=== PATIENT | female | born 1945 | race African-American/Black ===

== ENCOUNTER 2019-12-15 11:39 | Inpatient (IN) | payer MEDICARE, MEDICAID, SELFPAY ==
[2019-12-15] VITALS (34 sets, daily range): BP systolic 128–150; BP diastolic 51–66; PULSE 75–85; RESP 15–29; TEMP 37.2–37.7; O2SAT 79–100; BMI 27.1
--- NOTE | ~2019-12-15 | XR_ITS ---
EXAMINATION: XR chest 1V portable INDICATION: Bilateral pneumonia TECHNIQUE: Portable AP chest at 0512 hours COMPARISON: 12/19/2019 FINDINGS: The endotracheal tube ends approximately 3.8 cm above the cheryl. The nasogastric tube is f ollowed as far as the stomach. Its tip is beyond the inferior margin of the radiograph. Patchy diffus e airspace opacities persist, right greater than left, without significant change. There is no pleura l effusion or pneumothorax. The cardiomediastinal silhouette is normal. IMPRESSION: 1. Stable diffuse lung disease, consistent with pneumonia and/or pulmonary edema and/or acute respira tory distress syndrome (ARDS). Reviewed, dictated and finalized at location A. IMPRESSION: 1. Stable diffuse lung disease, consistent with pneumonia and/or pulmonary jase a and/or acute respiratory distress syndrome (ARDS).
--- NOTE | ~2019-12-15 | XR_ITS ---
EXAMINATION: XR chest 1V portable DATE: 12/22/2019 06:08 INDICATION: Pneumonia. Bilateral pulmonary infiltrates. TECHNIQUE: frontal view of the chest was obtained. COMPARISON: Chest radiograph dated 12/21/2019 FINDINGS: Endotracheal tube tip 4.5 cm above the cheryl. Nasogastric tube in the stomach. Diffuse hazy airspace and indistinct interstitial opacities throughout both lungs. Small bilateral pl eural effusions. Calcified nodules in the right lower lung zone consistent with old granulomatous dis ease. No pneumothorax. The cardiomediastinal silhouette is normal. IMPRESSION: 1. No significant interval change in diffuse bilateral lung disease consistent with pneumonia, pulmon renny edema, ARDS or some combination thereof. 2. Small bilateral pleural effusions. Reviewed, dictated and finalized at location A. IMPRESSION: 1. No significant interval change in diffuse bilateral lung disease consistent with pneumonia, pulmonary edema, ARDS or some combination thereof. 2. Small bilateral pleural effusions.
--- NOTE | ~2019-12-15 | XR_ITS ---
EXAMINATION: XR chest 1V portable DATE: 12/21/2019 06:01 INDICATION: Pneumonia. Bilateral pulmonary infiltrates. TECHNIQUE: frontal view of the chest was obtained. COMPARISON: Chest radiograph dated 12/20/2019 FINDINGS: Endotracheal tube tip 4.4 cm above the cheryl. Nasogastric tube tip in proximal side port in the body of the stomach. Vascular stent in the right subclavian region. Minimal change in diffuse patchy airspace opacities throughout both lungs. No pneumothorax or definit donita pleural effusion. Calcified nodules in the right lower lung zone consistent with old granulomatou s disease. The cardiomediastinal silhouette is normal. Cholecystectomy clips in the right upper quadr ant. IMPRESSION: 1. No significant change in diffuse bilateral lung disease consistent with pneumonia, pulmonary edema , ARDS or some combination thereof. Reviewed, dictated and finalized at location A. IMPRESSION: 1. No significant change in diffuse bilateral lung disease consistent with pneu monia, pulmonary edema, ARDS or some combination thereof.
--- NOTE | ~2019-12-15 | XR_ITS ---
EXAMINATION: XR chest ET placement DATE: 12/19/2019 00:49 INDICATION: Intubation. COVID-19 pneumonia. TECHNIQUE: A single frontal view of the chest was obtained. COMPARISON: Chest single view 12/18/2019 FINDINGS: There are patchy airspace opacities involving all lung zones bilaterally, right worse than left. No pleural effusion or pneumothorax. The heart size is normal. Surgical clips in the right uppe r quadrant are likely from cholecystectomy. The endotracheal tube tip is 4.0 cm above the cheryl. The nasogastric tube tip is in the stomach. There is a vascular stent overlying right shoulder. IMPRESSION: 1. Stable diffuse lung disease, consistent with pneumonia versus pulmonary edema versus acute respira tory distress syndrome (ARDS). Reviewed, dictated and finalized at location A. IMPRESSION: 1. Stable diffuse lung disease, consistent with pneumonia versus pulmonary jase a versus acute respiratory distress syndrome (ARDS).
--- NOTE | ~2019-12-15 | XR_ITS ---
EXAMINATION: XR chest 2V DATE: 12/15/2019 12:15 INDICATION: Shortness of breath and cough. TECHNIQUE: Frontal and lateral views of the chest were obtained. COMPARISON: Chest 2 views 12/06/2005, chest CT 12/06/2005 FINDINGS: There are patchy airspace opacities in all right lung zones and in left mid and lower lung zones. A calcified right lung nodule is consistent with old granulomatous disease. No pleural effusio n or pneumothorax. The heart size is normal. Surgical clips in the right upper quadrant are likely fr om cholecystectomy. There is a vascular stent overlying the right upper chest. IMPRESSION: 1. Multifocal lung disease, consistent with pneumonia (especially atypical pneumonia such as COVID-19 ) versus pulmonary edema. Reviewed, dictated and finalized at location A. IMPRESSION: 1. Multifocal lung disease, consistent with pneumonia (especially atypical pneu monia such as COVID-19) versus pulmonary edema.
--- NOTE | ~2019-12-15 | XR_ITS ---
EXAMINATION: XR chest 1V portable DATE: 12/18/2019 05:58 INDICATION: COVID-19 pneumonia. TECHNIQUE: A single frontal view of the chest was obtained. COMPARISON: Chest single view 12/17/2019 FINDINGS: There are patchy airspace opacities throughout the lungs bilaterally. No pleural effusion o r pneumothorax. The heart size is normal. IMPRESSION: 1. Stable diffuse lung disease, consistent with pneumonia versus pulmonary edema versus acute respira tory distress syndrome (ARDS). Reviewed, dictated and finalized at location A. IMPRESSION: 1. Stable diffuse lung disease, consistent with pneumonia versus pulmonary jase a versus acute respiratory distress syndrome (ARDS).
--- NOTE | ~2019-12-15 | XR_ITS ---
EXAMINATION: XR chest 1V portable DATE: 12/17/2019 06:00 INDICATION: COVID-19 pneumonia. TECHNIQUE: A single frontal view of the chest was obtained. COMPARISON: Chest 2 views 12/15/2019 FINDINGS: There are patchy airspace opacities in all lung zones bilaterally. No pleural effusion or p neumothorax. The heart size is normal. Surgical clips in the right upper quadrant are likely from cho lecystectomy. IMPRESSION: 1. Worsened diffuse lung disease, consistent with pneumonia versus pulmonary edema. Reviewed, dictated and finalized at location A. IMPRESSION: 1. Worsened diffuse lung disease, consistent with pneumonia versus pulmonary ed milagro.
--- NOTE | 2019-12-15 11:51 | ECG_ITS ---
Measurements Intervals [place] Rate: 80 P: 54 IN: 169 QRS: 24 QRSD: 89 T: 100 QT: 376 QTc: 435 Interpretive Statements SINUS RHYTHM POSSIBLE LEFT ATRIAL ENLARGEMENT POSSIBLE LEFT VENTRICULAR HYPERTROPHY BORDERLINE ST-T WAVE ABNORMALITY- INF/LAT LEADS BASELINE ARTIFACT- I, II, III, AVR, AVL, AVF BORDERLINE ECG Electronically Signed On 12-15-2019 14:13:07 CDT by Bryan Monson D.O.
--- NOTE | 2019-12-15 12:04 | ED.SOB ---
HPI - SOB/Dyspnea General Chief Complaint: Shortness of Breath/Dyspnea Stated Complaint: Lethargy & Fever Time Seen by Provider: 12/15/19 11:49 History of Present Illness HPI Narrative: Patient presents for shortness of breath. She is a dialysis patient Sunday. She has not missed dialysis and does not feel fluid overloaded. She denies any pain. She denies shortness of breath but does have some cough, nonproductive. She does not know about any fever. She is slow to answer questions and unable to answer some questions. She says her appetite is fine but does not want lunch. Related Data Home Medications Medication Instructions Recorded Confirmed atorvastatin 40 mg PO DAILY 12/15/19 brimonidine 12/15/19 brimonidine-timolol [Combigan] drp 12/15/19 carvedilol 6.25 mg BID 12/15/19 clopidogrel 75 mg PO DAILY 12/15/19 hydralazine 50 mg PO DAILY 12/15/19 insulin glargine [Lantus U-100 5 unit SUBCUT HS 12/15/19 Insulin] isosorbide mononitrate 30 mg PO DAILY 12/15/19 latanoprost 12/15/19 nystatin TOPICAL 12/15/19 sevelamer carbonate 800 mg PO TID 12/15/19 Allergies Allergy/AdvReac Type Severity Reaction Status Date / Time No Known Allergies Allergy Mild Unverified 05/28/09 12:34 Review of Systems Review of Systems: Narrative: Review of systems is limited by her inability to answer some questions. [facility] Past Medical History Medical History (Updated 12/15/19 @ 14:00 by Marleny Alvarez MD) Renal dialysis device, implant, or graft complication Social History Social History (Updated 12/15/19 @ 12:08 by Marleny Alvarez MD) Smoking status: Never smoker Alcohol intake: never Substance use: never Gender identity (if verbalized by the patient): Female Exam Narrative: Exam Narrative: GENERAL: Well-appearing, well-nourished, and in no acute distress. HEAD: Normocephalic, atraumatic. EYES: PERRLA and EOMI. ENT: Nares clear, no rhinorrhea or epistaxis. Mucous membranes moist. NECK: Supple. No JVD CHEST: Clear to auscultation. No respiratory distress. HEART: Regular rate and rhythm. No murmur heard. Normal peripheral pulses. ABDOMEN: Soft, nontender, nondistended, normal active bowel sounds. EXTREMITIES: Normal range of motion. No edema. Dialysis graft in the right upper arm. SKIN: Warm, dry, no rash. NEURO: No focal deficits. Alert. Slow to speak PSYCH: Normal mood and affect. Course Consultations Consultation #1: Calling the hospitalist to admit for pneumonia, non-STEMI, and possible COVID. Gomez accepts for Dr. Navarro. Requests IM U for COVID possible patients. Date: 12/15/19 Time: 14:03 Vital Signs Vital signs: Vital Signs Temperature 99.0 F 12/15/19 11:37 Pulse Rate 82 12/15/19 11:37 Respiratory Rate 23 H 12/15/19 11:37 Blood Pressure 139/52 L 12/15/19 11:37 Pulse Oximetry 79 L 12/15/19 11:37 Temperature 99.5 F 12/15/19 18:42 Pulse Rate 77 12/15/19 18:42 Respiratory Rate 21 H 12/15/19 18:42 Blood Pressure 149/60 H 12/15/19 18:42 Pulse Oximetry 95 12/15/19 18:42 MDM - SOB/Dyspnea Differential Diagnosis Differential diagnosis: Likely congestive heart failure and community acquired pneumonia Medical Records Attestation: I reviewed the patient's medical records. Lab Data Attestation: I reviewed the patient's lab results. Result diagrams: 12/15/19 12:41 12/15/19 12:41 Labs: Lab Results 12/15/19 12/15/19 12/15/19 Range/Units 12:41 12:41 12:41 WBC 9.6 (4.5-10.0) K/mm3 RBC 3.52 L (4.2-5.4) M/mm3 Hgb 10.2 L (12.0-15.0) g/dL Hct 32.4 L (37.0-47.0) % MCV 92.0 (80-100) fl MCH 29.0 (26-34) pg MCHC 31.5 L (32-36) g/dl RDW 14.0 (11.5-14.5) % Plt Count 133 L (150-375) k/mm3 MPV 11.1 H (7.4-10.4) fl Immature Gran % (Auto) 0.3 (0-0.5) % Neut % (Auto) 44.3 L (45.5-73.1) % Lymph % (Auto) 50.4 H (18.3-44.2) % [place] % (Auto) 4.8 (2.6-8.5)
[2019-12-15 12:49] LABS: Basophils Percent Auto 0.2 % (0.2-1.2); Hematocrit 32.4 % (37.0-47.0); Hemoglobin 10.2 g/dL (12.0-15.0); Immature Granulocyte Absolute 0.03 K/mm3 (0.00-0.031); Immature Granulocyte Percent A 0.3 % (0-0.5); Lymphocytes Absolute Auto 4.84 K/mm3 (0.9-3.2); Lymphocytes Percent Auto 50.4 % (18.3-44.2); Mean Corpuscular HGB Conc 31.5 g/dl (32-36); Mean Platelet Volume 11.1 fl (7.4-10.4); Monocytes Absolute Auto 0.5 K/mm3 (0.1-0.6); Monocytes Percent Auto 4.8 % (2.6-8.5); Neutrophils Absolute Auto 4.3 K/mm3 (1.3-6.7); Neutrophils Percent Auto 44.3 % (45.5-73.1); Platelet Count Result 133 k/mm3 (150-375); Red Blood Count 3.52 M/mm3 (4.2-5.4); White Blood Count 9.6 K/mm3 (4.5-10.0)
[2019-12-15 13:00] LABS: Blood Urea Nitrogen 44 mg/dL (7-17); Calcium 8.6 mg/dL (8.4-10.2); Carbon Dioxide 33 mmol/L (22-30); Chloride 97 mmol/L (98-107); Estimated CRCL calculation 8 ml/min; Estimated Glomerular Filt Rate 8; Glucose 157 mg/dL (65-105); Potassium 3.2 mmol/L (3.4-5.0); Sodium 135 mmol/L (137-145)
[2019-12-15 13:05] LABS: INR 0.8; Prothrombin Time 11.2 Seconds (11.1-14.7)
--- NOTE | 2019-12-15 13:05 | PC.NURSE ---
When placing Pt. in gown. Pt. was found wearing three diapers that were soiled through two layers with fecal matter. Pt. was cleaned up by staff with linen change and fresh gown and socks. Pt. lives at home with their son taking care of the Pt. Pt. had minimal skin breakdown with blanching.
[2019-12-15 13:06] LABS: Partial Thromboplastin Time 36.8 SECONDS (22.3-36.8)
[2019-12-15 13:16] LABS: NT Pro B Type Natriuretic Pept 10200 PG/ML (5-100); Troponin I 0.232 ng/mL (0.000-0.034)
[2019-12-15 14:57] LABS: Lactic Acid 0.9 mmol/L (0.7-2.1)
--- NOTE | 2019-12-15 18:47 | ADMGEN ---
This patient, Suzanne Cast, was admitted to Intensive Care Unit-6. Patient/family oriented to hospital policies and general routines including ID bracelet, bed and alarms, visiting hours, pain management, procedures, bathroom and other care routines, personal items, smoking policy, room service/diet, and visiting hours. Valuables list has been completed. Information on how to activate the Rapid Response Team has been discussed. Patient/Family are encouraged to report perceived risks to care and to ask questions if they do not understand what they are told or what they should do.
[2019-12-15 21:36] LABS: Glucose Point of Care 167 (65-105)
--- NOTE | 2019-12-15 23:57 | PM.IMHP ---
H&P: HPI History of Present Illness Chief complaint: pneumonia/ESRD on dialysis/non stemi Narrative: Suzanne Cast is a 73 year old female who has end-stage renal disease. She typically goes to dialysis on Sunday and Sunday. The patient stated that she has not missed any of her dialysis treatments. She says that she does have a fever and she has a nonproductive cough. Is noted to be 10.2 and 32.4. Her potassium 3.2. BUN 44 creatinine 6.3. She is diabetic and her blood sugar was 157. Was read as multifocal lung disease consistent with pneumonia specially atypical pneumonia such as COVID-19 versus pulmonary edema. Patient was started Rocephin and azithromycin. Blood cultures are pending date of service 12/16/2019 the patient was found to have a 38.3 ? C in the emergency room. Review of Systems Review of Systems: All systems reviewed & are unremarkable except as noted in HPI and below Constitutional: Constitutional: Reports as per HPI and Reports no additional constitutional complaints Eyes: Eyes: Reports as per HPI and Reports no additional eye complaints ENT: Reports system reviewed and no additional complaints, except as documented and Reports Normal hearing present Cardiovascular: Cardiovascular: Reports no additional cardiovascular complaints Respiratory: Respiratory: Reports no additional respiratory complaints and Reports no additional respiratory complaints Gastrointestinal: Gastrointestinal: Reports as per HPI and Reports no additional gastrointestinal complaints Musculoskeletal: Musculoskeletal: Reports no additional musculoskeletal complaints Integumentary/Breasts: Skin/Breast: Reports system reviewed and no additional complaints, except as docu and Reports as per HPI Neurologic: Reports system reviewed and no additional complaints, except as documented, Reports as per HPI and Reports Normal hearing present Psychiatric: Psychiatric: Reports no additional psychiatric complaints and Reports as per HPI Endocrine: Endocrine: Reports no additional endocrine complaints Hematologic/Lymphatic: Hematologic/Lymphatic: Reports no additional hematologic/lymphatic complaints Allergic/Immunologic: Allergic/Immunologic: Reports no additional allergic/immunologic complaints [facility] Past Medical History Medical History (Updated 12/16/19 @ 00:29 by Fidelia Espinosa NP) AV fistula DM2 (diabetes mellitus, type 2) On long-acting insulin Glaucoma Hyperlipidemia Hypertension Surgical History Surgical History (Updated 12/16/19 @ 00:14 by Fidelia Espinosa NP) S/P dialysis catheter insertion AV fistula Family History Family History (Updated 12/16/19 @ 00:16 by Fidelia Espinosa NP) Unknown Family history unknown Social History Social History (Updated 12/16/19 @ 00:24 by Fidelia Espinosa NP) Social History: She tells me that she had 3 children. She lives home alone. She tells me that a daughter lives nearby. 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 She desires to be a full code. Lifelong nonsmoker. She is . She is disabled Smoking status: Never smoker Alcohol intake: never Substance use: never Living arrangements: alone Gender identity (if verbalized by the patient): Female Meds Home Medications and Allergies Home Medications Medication Instructions Recorded Confirmed Type amlodipine 10 mg PO DAILY 12/15/19 12/15/19 History atorvastatin 40 mg PO DAILY 12/15/19 12/15/19 History brimonidine-timolol [Combigan] 1 drp OPHTHALMIC (EYE) BID 12/15/19 12/15/19 History carvedilol 6.25 mg PO BID 12/15/19 12/15/19 History clopidogrel 75 mg PO DAILY 12/15/19 12/15/19 History hydralazine 50 mg PO DAILY 12/15/19 12/15/19 History insulin glargine [Lantus U-100 5 unit SUBCUT HS 12/15/19 12/15/19 History Insulin] isosorbide mononitrate 30 mg PO DAILY 12/15/19 12/15/19 History sevelamer carbonate 800 mg PO TID 12/15/19 12/15/19 History timolol maleate 1 drp OPH
[2019-12-16] VITALS (36 sets, daily range): BP systolic 110–149; BP diastolic 46–99; PULSE 65–105; RESP 20–26; TEMP 36–39.2; O2SAT 89–98
[2019-12-16 00:48] LABS: Troponin I 0.175 ng/mL (0.000-0.034)
[2019-12-16] MEDS: ACETAMINOPHEN 325 MG TABLET 650 MG PO ×3 (01:26→20:08)
[2019-12-16 05:44] LABS: Basophils Percent Auto 0.2 % (0.2-1.2); Eosinophils Percent Auto 0.1 % (0-4.4); Hematocrit 34.2 % (37.0-47.0); Hemoglobin 10.9 g/dL (12.0-15.0); Immature Granulocyte Absolute 0.04 K/mm3 (0.00-0.031); Immature Granulocyte Percent A 0.4 % (0-0.5); Lymphocytes Absolute Auto 3.89 K/mm3 (0.9-3.2); Lymphocytes Percent Auto 40.4 % (18.3-44.2); Mean Corpuscular HGB Conc 31.9 g/dl (32-36); Mean Corpuscular Hemoglobin 28.5 pg (26-34); Mean Corpuscular Volume 89.3 fl (80-100); Mean Platelet Volume 11.3 fl (7.4-10.4); Monocytes Absolute Auto 0.8 K/mm3 (0.1-0.6); Monocytes Percent Auto 8.4 % (2.6-8.5); Neutrophils Absolute Auto 4.9 K/mm3 (1.3-6.7); Neutrophils Percent Auto 50.5 % (45.5-73.1); Platelet Count Result 142 k/mm3 (150-375); Red Blood Count 3.83 M/mm3 (4.2-5.4); Red Cell Distribution Width 13.8 % (11.5-14.5); White Blood Count 9.6 K/mm3 (4.5-10.0)
[2019-12-16 06:05] LABS: Lactate Dehydrogenase 1112 U/L (313-618)
[2019-12-16 06:22] LABS: Alanine Aminotransferase 8 U/L (4-35); Albumin Level 3.5 g/dL (3.5-5.1); Alkaline Phosphatase 82 U/L (38-126); Aspartate Amino Transferase 58 U/L (14-36); Bilirubin,Total 0.7 mg/dL (0.2-1.3); Blood Urea Nitrogen 55 mg/dL (7-17); Calcium 8.5 mg/dL (8.4-10.2); Carbon Dioxide 32 mmol/L (22-30); Chloride 97 mmol/L (98-107); Estimated CRCL calculation 7 ml/min; Estimated Glomerular Filt Rate 7; Glucose 154 mg/dL (65-105); Potassium 3.3 mmol/L (3.4-5.0); Sodium 138 mmol/L (137-145)
[2019-12-16 06:37] LABS: CRP 20.7 mg/dL (<1.0)
[2019-12-16 06:41] LABS: Thyroid Stimulating Hormone Reflex 0.562 uIU/mL (0.465-4.68)
[2019-12-16] MEDS: SEVELAMER CARBONATE 800 MG TABLET PO (08:52)
[2019-12-16] MEDS: ISOSORBIDE MONONITRATE 30 MG TAB.ER.24H PO (08:52)
[2019-12-16] MEDS: AMLODIPINE BESYLATE 5 MG TABLET 10 MG PO (08:52)
[2019-12-16] MEDS: ATORVASTATIN 40 MG TABLET PO (08:52)
[2019-12-16] MEDS: CLOPIDOGREL BISULFATE 75 MG TABLET PO (08:52)
[2019-12-16] MEDS: TIMOLOL MALEATE 0.5% OP SOLN 5 ML BTL 1 DROP EACH EYE ×2 (08:53→15:58)
[2019-12-16] MEDS: carvediloL 6.25 MG TABLET PO ×2 (08:53→20:09)
[2019-12-16] MEDS: BRIMONIDINE TARTRATE 0.2% OP SOLN 5 ML BTL 1 DROP EACH EYE ×2 (08:53→15:58)
[2019-12-16] MEDS: hydrALAZINE HCL 50 MG TABLET PO (08:53)
[2019-12-16 08:59] LABS: Glucose Point of Care 146 (65-105)
[2019-12-16 12:47] LABS: Glucose Point of Care 147 (65-105)
--- NOTE | 2019-12-16 13:05 | PM.PNNEP ---
Progress Note: A&P Assessment and Plan (1) End stage renal disease: Code(s): N18.6 - End stage renal disease Status: Chronic (2) Pneumonia: Qualifiers: Laterality: bilateral Lung location: unspecified part of lung Pneumonia type: due to unspecified organism Qualified Code(s): J18.9 - Pneumonia, unspecified organism Code(s): J18.9 - Pneumonia, unspecified organism Status: Acute (3) Hypertension: Code(s): I10 - Essential (primary) hypertension Status: Chronic (4) Suspected COVID-19 virus infection: Code(s): Z20.828 - Contact with and (suspected) exposure to other viral communicable diseases Status: Acute Time Spent With Patient Time: HD today FULL CONSULT TO FOLLOW Subjective Date/time seen: 12/16/19 13:05 Tolerated dialysis at the time of my visit (seen on HD at ~ 1:00PM); no acute issues or problems noted but she is febrile; no apparrent distress noted. Objective Data Vital Signs Vital Signs: Vital Signs Temp Pulse Resp BP Pulse Ox 12/16/19 12:42 39.2 C H 12/16/19 12:00 87 24 H 138/57 L 95 12/16/19 09:53 84 12/16/19 08:53 86 12/16/19 08:00 37.2 C 83 26 H 147/51 H 89 L 12/16/19 06:00 80 12/16/19 04:00 37.5 C 77 26 H 136/51 L 98 12/16/19 02:26 37.7 C H 12/16/19 02:00 77 12/16/19 01:26 38.3 C H 12/16/19 00:00 38.3 C H 80 24 H 149/53 H 95 12/15/19 22:00 80 12/15/19 20:00 37.7 C H 80 22 H 146/54 H 95 12/15/19 18:42 37.5 C 77 21 H 149/60 H 95 12/15/19 18:16 76 15 149/56 H 100 12/15/19 18:02 75 23 H 97 12/15/19 17:46 77 22 H 132/53 L 98 12/15/19 17:31 75 22 H 131/52 L 97 12/15/19 17:16 76 20 146/54 H 96 12/15/19 17:01 76 19 141/55 H 97 12/15/19 16:46 76 29 H 144/56 H 98 12/15/19 16:31 77 20 144/53 H 97 12/15/19 16:15 77 23 H 94 12/15/19 16:02 76 22 H 96 12/15/19 15:30 77 22 H 95 12/15/19 15:15 77 21 H 95 12/15/19 15:01 128/52 L 94 12/15/19 15:00 94 12/15/19 14:45 80 23 H 93 12/15/19 14:16 80 22 H 146/57 H 94 12/15/19 14:01 80 20 136/58 L 94 12/15/19 14:00 80 20 92 12/15/19 13:45 78 20 95 12/15/19 13:31 82 15 143/66 H 92 12/15/19 13:30 78 16 96 12/15/19 13:16 78 17 150/56 H 94 12/15/19 13:15 79 20 95 12/15/19 13:11 85 12/15/19 13:01 79 22 H 134/63 100 12/15/19 13:00 79 21 H 100 Intake/Output Intake/Output: Intake & Output 12/13/19 12/14/19 12/15/19 12/16/19 23:59 23:59 23:59 23:59 Intake Total 300 290 Balance 300 290 Meds/Results Medications: Active Medications Generic Name Dose Route Start Last Admin Trade Name Freq PRN Reason Stop Dose Admin Acetaminophen 650 mg 12/16/19 00:09 12/16/19 12:42 Tylenol Tablet PO 650 mg Q4H PRN Administration Headache Amlodipine Besylate 10 mg 12/16/19 09:00 12/16/19 08:52 Norvasc PO 10 mg DAILY GEOVANNA Administration Atorvastatin Calcium 40 mg 12/16/19 09:00 12/16/19 08:52 Lipitor PO 40 mg DAILY GEOVANNA Administration Brimonidine Tartrate 1 drop 12/16/19 09:00 12/16/19 08:53 Alphagan 0.2% Op Soln EACH EYE 01/15/20 09:01 1 drop BID GEOVANNA Administration Carvedilol 6.25 mg 12/16/19 09:00 12/16/19 08:53 Coreg PO 6.25 mg Q12HR GEOVANNA Administration Clopidogrel Bisulfate 75 mg 12/16/19 09:00 12/16/19 08:52 Plavix PO 75 mg DAILY GEOVANNA Administration Dextrose 12.5 gm 12/16/19 00:19 Dextrose 50% Syringe IV PUSH PRN PRN Hypoglycemia Protocol Epoetin Calvin 5,000 units 12/16/19 19:08 Epogen IV PUSH 12/16/19 19:09 ONCE ONE Glucagon 1 mg 12/16/19 00:19 Glucagon For Inj IM PRN PRN Hypoglycemia Protocol Glucose 15 gm 12/16/19 00:19 Glutose 15 PO PRN PRN Hypoglycemia Protocol Hydralazine HCl 50 mg 12/16/19 09:00 12/16/19 08:5
[2019-12-16] MEDS: EPOETIN ALFA 10,000 UNITS/ML VIAL 5000 UNITS IV PUSH (14:46)
[2019-12-16 14:51] LABS: SARS-CoV-2 RNA PCR Positive
[2019-12-16] MEDS: HEPARIN SODIUM 1,000 UNITS/ML VIAL 3000 UNITS (15:59)
[2019-12-16 16:24] LABS: Glucose Point of Care 103 (65-105)
--- NOTE | 2019-12-16 17:07 | PM.IMPN ---
Progress Note: A&P Assessment and Plan (1) Pneumonia: Qualifiers: Laterality: bilateral Lung location: unspecified part of lung Pneumonia type: due to unspecified organism Qualified Code(s): J18.9 - Pneumonia, unspecified organism Code(s): J18.9 - Pneumonia, unspecified organism Status: Acute Assessment and Plan: CXR findings as mentioned below. Can not rule out PNA. BCx NGTD. Continue Rocephin and Azithromycin. Wean O2 as toelrated. (2) COVID-19: Code(s): U07.1 - COVID-19 Status: Acute Assessment and Plan: SARS-CoV-2 RNA positive. LDH 1112, CRP 20.7. CXR showing multifocal disease c/w COVID-19. Will continue to follow CXR findings and inflammatory markers. Continue supportive care. (3) Elevated troponin: Code(s): R79.89 - Other specified abnormal findings of blood chemistry Status: Acute Assessment and Plan: Troponin 0.23 on admission but trending downward. EKG showing no acute changes. Suspect elevated troponin related to COVID-19. Check echocardiogram. Continue telemetry. (4) End stage renal disease on dialysis: Code(s): N18.6 - End stage renal disease; Z99.2 - Dependence on renal dialysis Status: Chronic Assessment and Plan: She has dialysis on Sunday. Nephrology has been consulted. Appreciate their input. Continue Renvela. Continue hemodialysis. (5) Hypertension: Code(s): I10 - Essential (primary) hypertension Status: Chronic Assessment and Plan: Blood pressure reviewed on 12/16/2019. Blood pressure well controlled. Continue with amlodipine, Coreg, hydralazine and Imdur. Adjust medications accordingly. (6) DM2 (diabetes mellitus, type 2): Code(s): E11.9 - Type 2 diabetes mellitus without complications Status: Acute Assessment and Plan: Glucose reviewed on 12/16/2019. Glucose reasonably well controlled. No recent A1c. Continue Sliding scale protocol. Continue Lantus. Check A1c in the morning (7) Hyperlipidemia: Code(s): E78.5 - Hyperlipidemia, unspecified Status: Chronic Assessment and Plan: AST 58 otherwise LFTs within normal limits. Will hold atorvastatin and check total CK (8) Glaucoma: Code(s): H40.9 - Unspecified glaucoma Status: Chronic Assessment and Plan: Stable. Continue with home eye drops. Subjective Date/time seen: 12/16/19 17:07 Interval history: 73yo female with DM and ESRD on HD here for PNA and found to be COVID-19 (+). Patient feels better today. Minimal cough. Not eating much but denies nausea or vomiting. No chest pain. Had hemodialysis earlier today and tolerated well. She normally walks unassisted at home. Exam Narrative: Exam Narrative: Gen - NARD sitting up in bed Chest -bibasilar dry inspiratory crackles. Normal respiratory rate. No conversational dyspnea. CV - RRR S1/S2 Abd -soft. Nontender. Positive bowel sounds. Umbilical hernia noted. Ext - No pedal edema. Thrill and a bruit noted in the right upper extremity fistula Psych - Nml mood and affect Skin - Warm and dry Objective Data Vital Signs Vital Signs: Vital Signs - 24 hr 12/15/19 17:16 12/15/19 17:31 12/15/19 17:46 Temperature Pulse Rate 76 75 77 Respiratory Rate 20 22 H 22 H Blood Pressure 146/54 H 131/52 L 132/53 L Pulse Oximetry 96 97 98 12/15/19 18:02 12/15/19 18:16 12/15/19 18:42 Temperature 99.5 F Pulse Rate 75 76 77 Respiratory Rate 23 H 15 21 H Blood Pressure 149/56 H 149/60 H Pulse Oximetry 97 100 95 12/15/19 20:00 12/15/19 22:00 12/16/19 00:00 Temperature 100 F H 101 F H Pulse Rate 80 80 80 Respiratory Rate 22 H 24 H Blood Pressure 146/54 H 149/53 H Pulse Oximetry 95 95 12/16/19 01:26 12/16/19 02:00 12/16/19 02:26 Temperature 101 F H 100 F H Pulse Rate 77 Respiratory Rate Blood Pressure Pulse Oximetry 12/16/19 0
[2019-12-16] MEDS: INSULIN GLARGINE (*BKC) 100 UNITS/ML SUB-Q (20:08)
[2019-12-16 20:17] LABS: Glucose Point of Care 161 (65-105)
[2019-12-17] VITALS (29 sets, daily range): BP systolic 107–139; BP diastolic 42–111; PULSE 74–85; RESP 16–25; TEMP 37–38.3; O2SAT 89–100
[2019-12-17] MEDS: ACETAMINOPHEN 325 MG TABLET 650 MG PO ×2 (04:02→23:56)
[2019-12-17 04:45] LABS: Basophils Percent Auto 0.2 % (0.2-1.2); Hemoglobin 10.7 g/dL (12.0-15.0); Immature Granulocyte Absolute 0.04 K/mm3 (0.00-0.031); Immature Granulocyte Percent A 0.4 % (0-0.5); Lymphocytes Percent Auto 40.4 % (18.3-44.2); Mean Corpuscular HGB Conc 31.5 g/dl (32-36); Mean Corpuscular Hemoglobin 28.8 pg (26-34); Mean Corpuscular Volume 91.4 fl (80-100); Mean Platelet Volume 11.6 fl (7.4-10.4); Monocytes Absolute Auto 0.5 K/mm3 (0.1-0.6); Monocytes Percent Auto 5.9 % (2.6-8.5); Neutrophils Absolute Auto 4.9 K/mm3 (1.3-6.7); Neutrophils Percent Auto 53.1 % (45.5-73.1); Platelet Count Result 161 k/mm3 (150-375); Red Blood Count 3.72 M/mm3 (4.2-5.4); Red Cell Distribution Width 13.8 % (11.5-14.5); White Blood Count 9.2 K/mm3 (4.5-10.0)
[2019-12-17 04:55] LABS: Hemoglobin A1C 6.8 % (<5.7)
[2019-12-17 04:56] LABS: Creatine Kinase 950 U/L (30-135); Lactate Dehydrogenase 1343 U/L (313-618)
[2019-12-17 04:57] LABS: Alanine Aminotransferase 9 U/L (4-35); Albumin Level 3.5 g/dL (3.5-5.1); Alkaline Phosphatase 85 U/L (38-126); Aspartate Amino Transferase 82 U/L (14-36); Bilirubin,Total 0.7 mg/dL (0.2-1.3); Blood Urea Nitrogen 26 mg/dL (7-17); Carbon Dioxide 32 mmol/L (22-30); Chloride 99 mmol/L (98-107); Estimated CRCL calculation 13 ml/min; Estimated Glomerular Filt Rate 15; Glucose 107 mg/dL (65-105); Phosphorus 3.4 mg/dL (2.5-4.5); Potassium 3.6 mmol/L (3.4-5.0); Sodium 137 mmol/L (137-145)
[2019-12-17 05:12] LABS: CRP 24.4 mg/dL (<1.0)
[2019-12-17 07:19] LABS: Ferritin > 2000.00 ng/mL (11.1-264)
[2019-12-17] MEDS: CLOPIDOGREL BISULFATE 75 MG TABLET PO (08:04)
[2019-12-17] MEDS: ISOSORBIDE MONONITRATE 30 MG TAB.ER.24H PO (08:04)
[2019-12-17] MEDS: carvediloL 6.25 MG TABLET PO ×2 (08:05→20:13)
[2019-12-17] MEDS: AMLODIPINE BESYLATE 5 MG TABLET 10 MG PO (08:05)
[2019-12-17] MEDS: SEVELAMER CARBONATE 800 MG TABLET PO ×2 (08:05→18:46)
[2019-12-17] MEDS: hydrALAZINE HCL 50 MG TABLET PO (08:05)
[2019-12-17] MEDS: TIMOLOL MALEATE 0.5% OP SOLN 5 ML BTL 1 DROP EACH EYE ×2 (08:05→18:45)
[2019-12-17] MEDS: BRIMONIDINE TARTRATE 0.2% OP SOLN 5 ML BTL 1 DROP EACH EYE ×2 (08:05→18:46)
--- NOTE | 2019-12-17 08:05 | PM.IMPN ---
Progress Note: A&P Assessment and Plan (1) COVID-19: Code(s): U07.1 - COVID-19 Status: Acute Assessment and Plan: SARS-CoV-2 RNA positive. LDH higher at 1343, CRP 24.4, TCK 950, Ferritin >2000. CXR showing worsening diffuse multifocal disease c/w COVID-19. Feves yesterday but improved today. Discussed with lock operator. Will continue to follow CXR findings and inflammatory markers. Continue supportive care. Consider anticoagulation but will defer to lock operator. Discussed with nephrology. Plan for repeat HD today. (2) Pneumonia: Qualifiers: Laterality: bilateral Lung location: unspecified part of lung Pneumonia type: due to unspecified organism Qualified Code(s): J18.9 - Pneumonia, unspecified organism Code(s): J18.9 - Pneumonia, unspecified organism Status: Acute Assessment and Plan: CXR findings as mentioned above. Can not rule out PNA. BCx NGTD. Continue Rocephin and Azithromycin. Wean O2 as tolerated. Add Albuterol HFA (3) Elevated troponin: Code(s): R79.89 - Other specified abnormal findings of blood chemistry Status: Acute Assessment and Plan: Troponin 0.23 on admission but trending downward. EKG showing no acute changes. Suspect elevated troponin related to COVID-19. Echocardiogram ordered. Continue telemetry. (4) End stage renal disease on dialysis: Code(s): N18.6 - End stage renal disease; Z99.2 - Dependence on renal dialysis Status: Chronic Assessment and Plan: Patient on terminal operations manager HD on . Had HD yesterday and tolerated this well. No fluid removed. Nephrology has been consulted and appreciate their input. Continue Renvela. Continue hemodialysis. (5) Hypertension: Qualifiers: Hypertension type: essential hypertension Qualified Code(s): I10 - Essential (primary) hypertension Code(s): I10 - Essential (primary) hypertension Status: Chronic Assessment and Plan: Blood pressure reviewed on 12/17/2019. Blood pressure well controlled. Continue with amlodipine, Coreg, hydralazine and Imdur. Adjust medications accordingly. (6) DM2 (diabetes mellitus, type 2): Qualifiers: Chronic kidney disease stage: on chronic dialysis Diabetes mellitus complication detail: with chronic kidney disease Diabetes mellitus complication status: with kidney complications Diabetes mellitus correction insulin use: with terminal operations manager use Qualified Code(s): E11.22 - Type 2 diabetes mellitus with diabetic chronic kidney disease; N18.6 - End stage renal disease; Z79.4 - adjunct faculty for medical terminology (current) use of insulin; Z99.2 - Dependence on renal dialysis Code(s): E11.9 - Type 2 diabetes mellitus without complications Status: Acute Assessment and Plan: A1c 6.8. Glucose reviewed on 12/17/2019. Glucose well controlled. Continue sliding scale protocol. Continue Lantus. (7) Hyperlipidemia: Qualifiers: Hyperlipidemia type: unspecified Qualified Code(s): E78.5 - Hyperlipidemia, unspecified Code(s): E78.5 - Hyperlipidemia, unspecified Status: Chronic Assessment and Plan: AST up to 82 otherwise LFTs remain within normal limits. Will continue to hold atorvastatin given the elevated total CK to 950. (8) Glaucoma: Qualifiers: Glaucoma type: unspecified Laterality: bilateral Qualified Code(s): H40.9 - Unspecified glaucoma Code(s): H40.9 - Unspecified glaucoma Status: Chronic Assessment and Plan: Stable. Continue with home eye drops. Subjective Date/time seen: 12/17/19 08:05 Interval history: 73yo female with DM and ESRD on HD here for PNA and found to be COVID-19 (+). Patient feels better and feels SOB improved. Denies CP. Eating okay and denies odynophagia. No issues overnight per nursing staff. Patient is requiring more oxygen today. Minimal cough per patient. Exam Narrative: Ex
[2019-12-17 09:25] LABS: Glucose Point of Care 85 (65-105)
[2019-12-17] MEDS: ALBUTEROL SULFATE (*SP) AEROSOL 1 PUFF 2 PUFF INHALATION ×2 (12:12→20:42)
--- NOTE | 2019-12-17 15:23 | PM.CNNEP ---
Assessment and Plan Assessment and plan (1) End stage renal disease: Code(s): N18.6 - End stage renal disease Status: Chronic (2) COVID-19: Code(s): U07.1 - COVID-19 Status: Acute (3) Pneumonia: Qualifiers: Laterality: bilateral Lung location: unspecified part of lung Pneumonia type: due to unspecified organism Qualified Code(s): J18.9 - Pneumonia, unspecified organism Code(s): J18.9 - Pneumonia, unspecified organism Status: Acute (4) Hypertension: Qualifiers: Hypertension type: essential hypertension Qualified Code(s): I10 - Essential (primary) hypertension Code(s): I10 - Essential (primary) hypertension Status: Chronic (5) DM2 (diabetes mellitus, type 2): Qualifiers: Chronic kidney disease stage: on chronic dialysis Diabetes mellitus complication detail: with chronic kidney disease Diabetes mellitus complication status: with kidney complications Diabetes mellitus nursing home insulin use: with nursing home use Qualified Code(s): E11.22 - Type 2 diabetes mellitus with diabetic chronic kidney disease; N18.6 - End stage renal disease; Z79.4 - buttermilk drier operator (current) use of insulin; Z99.2 - Dependence on renal dialysis Code(s): E11.9 - Type 2 diabetes mellitus without complications Status: Acute Assessment and Plan: . Additional Plan Suzanne has end-stage renal disease. She received dialysis yesterday to maintain her Sunday schedule but given her high fevers, middle pole fluid removal was done. However, given her increasing hypoxia and worsening chest x-ray appearance, she is receiving a session of dry ultrafiltration today in effort to be aggressive with fluid removal with subsequent further removal to occur with her next dialysis treatment tomorrow. Given her known Covid 19 infection, the concern is that her respiratory status is directly linked to this infection. The intensivists has been consulted for further evaluation and therapy and she currently remains on supplemental oxygen with relative stability in her respiratory status. I will defer further Covid [address] Simmons. As stated, she will receive her next dialysis treatment tomorrow and I will continue to be as aggressive as possible in terms of fluid removal with the limits of what her hemodynamics tolerate. Her CKD parameters with regard to electrolytes and clearance appear to be satisfactory with her current dialysis prescription. The case was discussed with Dr. Rojas as well as Dr. Simmons. I will continue follow the patient with you while she remains hospitalized to make further comment a shins during her hospital course. Thank you for allowing me me to participate in the care of this patient. History of Present Illness Reason for Consult Consult date: 12/17/19 Reason for consult: end stage renal disease Chief Complaint Chief complaint: pneumonia/ESRD on dialysis/non stemi History of Present Illness Narrative: The patient is a 73 year old female with a past medical history as outlined below who presented to [facility] ER with shortness of breath and fever. The patient has noted the symptoms of shortness of breath and fever for the past few days. Other associated symptoms include a nonproductive cough as well. She gave no other symptoms the guarded chest pain, nausea, vomiting, diarrhea, dizziness, palpitations, or any other systemic symptoms. However, given that she is a dialysis patient and that her symptoms were concerning for possible Covid 19 infection, she came to the ER for further evaluation and therapy Workup and evaluation emergency room demonstrated the patient to be febrile with a temperature of 101.5 but otherwise hemodynamically stable. Routine blood tests for consistent with her known history of end-stage renal disease and her chest x-ray demonstrated a combination of pneumonia and possible p
--- NOTE | 2019-12-17 15:25 | WPDCNINT ---
Assessment and Plan Assessment and plan (1) Acute respiratory failure: Qualifiers: Respiratory failure complication: hypoxia Qualified Code(s): J96.01 - Acute respiratory failure with hypoxia Code(s): J96.00 - Acute respiratory failure, unspecified whether with hypoxia or hypercapnia Status: Acute Assessment and Plan: patient presented with shortness of breath, nonproductive cough on 12/15/2019, chest x-ray at that time showed multifocal lung disease - patient said positive for COVID-19 - continue ceftriaxone and azithromycin - continue albuterol MDI (2) COVID-19: Code(s): U07.1 - COVID-19 Status: Acute Assessment and Plan: SARs-CoV-2 PCR positive - continue airborne, droplet, contact isolation /precautions - inflammatory markers are elevated - (3) Pneumonia: Qualifiers: Laterality: bilateral Lung location: unspecified part of lung Pneumonia type: due to unspecified organism Qualified Code(s): J18.9 - Pneumonia, unspecified organism Code(s): J18.9 - Pneumonia, unspecified organism Status: Acute Assessment and Plan: as above (4) End stage renal disease: Code(s): N18.6 - End stage renal disease Status: Chronic Assessment and Plan: end-stage renal disease on hemodialysis Tuesdays, , Saturdays - appreciate Nephrology evaluation - will dialyze again today with removal of fluid as chest x-ray is worse (5) DM2 (diabetes mellitus, type 2): Qualifiers: 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 insulin use: with intermodal owner operator truck driver use Diabetes mellitus complication status: with kidney complications Diabetes mellitus complication detail: with chronic kidney disease Chronic kidney disease stage: on chronic dialysis Qualified Code(s): E11.22 - Type 2 diabetes mellitus with diabetic chronic kidney disease; N18.6 - End stage renal disease; Z79.4 - intermediate manager (current) use of insulin; Z99.2 - Dependence on renal dialysis Code(s): E11.9 - Type 2 diabetes mellitus without complications Status: Acute Assessment and Plan: continue Accu-Cheks, sliding scale insulin and Lantus (6) Elevated troponin: Code(s): R79.89 - Other specified abnormal findings of blood chemistry Status: Acute Assessment and Plan: troponins were initially elevated but trended down. EKG did not show any acute ST changes. troponin elevation likely related to respiratory distress - echocardiogram has been ordered (7) Hypertension: Qualifiers: Hypertension type: essential hypertension Qualified Code(s): I10 - Essential (primary) hypertension Code(s): I10 - Essential (primary) hypertension Status: Chronic Assessment and Plan: patient with history of essential hypertension, - blood pressures are well controlled - continue amlodipine, Coreg, hydralazine, Imdur continue to monitor blood pressures closely (8) DVT prophylaxis: Code(s): Z29.9 - Encounter for prophylactic measures, unspecified Status: Acute Assessment and Plan: patient will require anticoagulation given COVID-19 is thrombogenic. - will start heparin 5000 units SQ q.8 hours (9) Dietary counseling and surveillance: Code(s): Z71.3 - Dietary counseling and surveillance Status: Acute Assessment and Plan: on a renal diet Additional Plan discussed with patient updated her with her condition and plan of care. I also asked her that if her condition worsens that she requires more oxygen and/or intubation and placement on a mechanical ventilator to which she said yes she wants to be a full code. Code status: Full code Critical care time spent: 45 minutes Due to a high probability of clinically significant, life threatening deterioration, the patient required my highest level of preparedness to intervene emergently and I personally spent this critical care time directly and pe
[2019-12-17 16:25] LABS: Glucose Point of Care 129 (65-105)
[2019-12-17] MEDS: HEPARIN SODIUM 5,000 UNITS/ML VIAL 5000 UNITS SUB-Q ×2 (18:45→20:11)
[2019-12-17] MEDS: INSULIN GLARGINE (*BKC) 100 UNITS/ML SUB-Q (20:09)
[2019-12-17 20:32] LABS: Glucose Point of Care 125 (65-105)
[2019-12-17 20:32] LABS: Glucose Point of Care 148 (65-105)
[2019-12-18] VITALS (35 sets, daily range): BP systolic 84–120; BP diastolic 36–68; PULSE 52–91; RESP 16–30; TEMP 36–38.3; O2SAT 87–95
--- NOTE | 2019-12-18 | ECHO_ITS ---
Patient Info Name: Suzanne Cast Age: 74 years : 1945 Gender: Female Ht: 68 in Wt: 143 lbs BSA: 1.76 m2 HR: 73 bpm BP: 105 / 49 mmHg Technical Quality: Good Exam Date: 12/18/2019 1:59 PM Exam Location: [facility] Patient Status: Inpatient Admit Date: 12/15/2019 Staff Ordering Physician: Surendra Rojas MD Explosive Operator Fuse: Suleman Morelos, BLANCO, RT Attending Provider: Surendra Rojas MD Exam Type: CA echo doppler color flow Study Info Indications I50.9 - Heart failure, unspecified Complete two-dimensional, color flow and Doppler transthoracic echocardiogram is performed. Summary 1. Left ventricular chamber dimension is normal. 2. Ventricular septum is sigmoid shaped. 3. Left ventricular systolic function is normal, estimated at 65-70%. 4. There is moderately increased left ventricular wall thickness. 5. The left ventricular diastolic function is grade I diastolic dysfunction. 6. Global longitudinal strain is mildly abnormal at -15.9%. 7. Left atrial chamber dimension is mildly enlarged. 8. There is mild aortic valve sclerosis. 9. There is trace tricuspid valve regurgitation. Left Ventricle Ventricular septum is sigmoid shaped. Tissue doppler is not performed. Global longitudinal strain is mildly abnormal at -15.9%. Left ventricular chamber dimension is normal. Left ventricular systolic function is normal, estimated at 65-70%. There is moderately increased left ventricular wall thickness. The left ventricular diastolic function is grade I diastolic dysfunction. Right Ventricle Right ventricular chamber dimension is normal. Right ventricular systolic function is normal. Left Atria Left atrial chamber dimension is mildly enlarged. Right Atria Right atrial chamber dimension is normal. Aortic Valve The aortic valve is trileaflet. There is mild aortic valve sclerosis. There is no aortic valve stenosis. There is no aortic valve regurgitation. Pulmonic Valve There is no pulmonic regurgitation. Mitral Valve There is no mitral valve stenosis. There is no mitral valve regurgitation. Tricuspid Valve There is trace tricuspid valve regurgitation. RVSP is not calculated due to an inadequate TR jet. Pericardium/Pleural There is no pericardial effusion. Inferior Vena Cava Normal inferior vena cava with >50% collapse upon inspiration consistent with normal right atrial pressure, 5 mmHg. Aorta The aortic root size at the sinus of Valsalva is normal. Left Ventricular Outflow Tract Name Value Normal LVOT 2D LVOT Diameter 1.9 cm LVOT Doppler LVOT Peak Velocity 87 cm/s LVOT Peak Gradient 3 mmHg LVOT Mean Gradient 2 mmHg LVOT VTI 18 cm LVOT VTI/AV VTI Ratio 0.5 LVOT Stroke Volume 52 ml LVOT CO 3.8 l/min LVOT CI 2.1 l/min/m2 Tricuspid Valve Name
[2019-12-18 05:12] LABS: Basophils Percent Auto 0.3 % (0.2-1.2); Eosinophils Percent Auto 0.2 % (0-4.4); Hematocrit 36.8 % (37.0-47.0); Hemoglobin 11.7 g/dL (12.0-15.0); Immature Granulocyte Absolute 0.07 K/mm3 (0.00-0.031); Immature Granulocyte Percent A 0.7 % (0-0.5); Lymphocytes Absolute Auto 3.68 K/mm3 (0.9-3.2); Lymphocytes Percent Auto 38.7 % (18.3-44.2); Mean Corpuscular HGB Conc 31.8 g/dl (32-36); Mean Corpuscular Hemoglobin 28.8 pg (26-34); Mean Corpuscular Volume 90.6 fl (80-100); Mean Platelet Volume 11.8 fl (7.4-10.4); Monocytes Absolute Auto 0.3 K/mm3 (0.1-0.6); Monocytes Percent Auto 3.3 % (2.6-8.5); Neutrophils Absolute Auto 5.4 K/mm3 (1.3-6.7); Neutrophils Percent Auto 56.8 % (45.5-73.1); Platelet Count Result 180 k/mm3 (150-375); Red Blood Count 4.06 M/mm3 (4.2-5.4); Red Cell Distribution Width 13.9 % (11.5-14.5); White Blood Count 9.5 K/mm3 (4.5-10.0)
[2019-12-18] MEDS: HEPARIN SODIUM 5,000 UNITS/ML VIAL 5000 UNITS SUB-Q ×3 (05:24→20:32)
[2019-12-18 05:36] LABS: Alanine Aminotransferase 11 U/L (4-35); Albumin Level 3.8 g/dL (3.5-5.1); Alkaline Phosphatase 130 U/L (38-126); Aspartate Amino Transferase 127 U/L (14-36); Bilirubin,Total 0.9 mg/dL (0.2-1.3); Blood Urea Nitrogen 46 mg/dL (7-17); Carbon Dioxide 30 mmol/L (22-30); Chloride 95 mmol/L (98-107); Estimated CRCL calculation 9 ml/min; Estimated Glomerular Filt Rate 10; Glucose 127 mg/dL (65-105); Lactate Dehydrogenase 1833 U/L (313-618); Phosphorus 4.3 mg/dL (2.5-4.5); Potassium 3.9 mmol/L (3.4-5.0); Sodium 134 mmol/L (137-145)
[2019-12-18 06:20] LABS: D Dimer 7.95 ug/mL (<0.48)
[2019-12-18 06:38] LABS: CRP 33.2 mg/dL (<1.0)
[2019-12-18] MEDS: BRIMONIDINE TARTRATE 0.2% OP SOLN 5 ML BTL 1 DROP EACH EYE ×2 (07:51→18:23)
[2019-12-18] MEDS: TIMOLOL MALEATE 0.5% OP SOLN 5 ML BTL 1 DROP EACH EYE ×2 (07:51→18:23)
[2019-12-18] MEDS: SEVELAMER CARBONATE 800 MG TABLET PO ×3 (07:51→18:23)
[2019-12-18] MEDS: carvediloL 6.25 MG TABLET PO (07:51)
[2019-12-18] MEDS: AMLODIPINE BESYLATE 5 MG TABLET 10 MG PO (07:51)
[2019-12-18] MEDS: hydrALAZINE HCL 50 MG TABLET PO (07:52)
[2019-12-18] MEDS: ISOSORBIDE MONONITRATE 30 MG TAB.ER.24H PO (07:52)
[2019-12-18] MEDS: CLOPIDOGREL BISULFATE 75 MG TABLET PO (07:52)
[2019-12-18 08:00] LABS: Alveolar/Arterial O2 Gradient 622.6 mmHg; Base Excess ABG 2.6 mEq/l (+/-2.0); Device NON-REBREATHER MASK; Fractional Inspired Oxygen 100 %; HCO3 ABG 26.3 mEq/l (22.0-26.0); Modified Allen's Test Pass; Oxygen Saturation ABG 89.4 % (95.0-100.0); Oxyhemoglobin 86.7 % THb (90.0-100.0); PCO2 ABG 37.5 mmHg (35.0-45.0); PO2 ABG 52.9 mmHg (80.0-100.0); PO2 FiO2 Ratio Arterial Blood 0.53 %; Site Drawn RIGHT RADIAL; Total Hemoglobin 11.5 g/dL (12.0-18.0); pH ABG 7.464 (7.350-7.450)
[2019-12-18] MEDS: ALBUTEROL SULFATE (*SP) AEROSOL 1 PUFF 2 PUFF INHALATION ×4 (08:41→20:51)
--- NOTE | 2019-12-18 09:18 | WPDINTPN ---
Progress Note: A&P Assessment and Plan (1) Acute respiratory failure: Qualifiers: Respiratory failure complication: hypoxia Qualified Code(s): J96.01 - Acute respiratory failure with hypoxia Code(s): J96.00 - Acute respiratory failure, unspecified whether with hypoxia or hypercapnia Status: Acute Assessment and Plan: patient presented with shortness of breath, nonproductive cough on 12/15/2019, chest x-ray at that time showed multifocal lung disease - patient is positive for COVID-19 - continue 15 L oxygen via nasal cannula and a non-rebreather facemask, O2 sats have been greater than 92% - continue ceftriaxone and azithromycin - continue albuterol MDI (2) COVID-19: Code(s): U07.1 - COVID-19 Status: Acute Assessment and Plan: SARs-CoV-2 PCR positive - continue airborne, droplet, contact isolation /precautions - inflammatory markers are elevated - (3) Pneumonia: Qualifiers: Laterality: bilateral Lung location: unspecified part of lung Pneumonia type: due to unspecified organism Qualified Code(s): J18.9 - Pneumonia, unspecified organism Code(s): J18.9 - Pneumonia, unspecified organism Status: Acute Assessment and Plan: as above (4) End stage renal disease: Code(s): N18.6 - End stage renal disease Status: Chronic Assessment and Plan: end-stage renal disease on hemodialysis Tuesdays, , Saturdays - appreciate Nephrology evaluation - 3000 mL fluid removed with dialysis on 12/17/2019 - dialysis per Nephrology (5) DM2 (diabetes mellitus, type 2): Qualifiers: Diabetes mellitus senior living insulin use: with senior living use Diabetes mellitus complication status: with kidney complications Diabetes mellitus complication detail: with chronic kidney disease Chronic kidney disease stage: on chronic dialysis Qualified Code(s): E11.22 - Type 2 diabetes mellitus with diabetic chronic kidney disease; N18.6 - End stage renal disease; Z79.4 - custodial (current) use of insulin; Z99.2 - Dependence on renal dialysis Code(s): E11.9 - Type 2 diabetes mellitus without complications Status: Acute Assessment and Plan: continue Accu-Cheks, sliding scale insulin and Lantus (6) Elevated troponin: Code(s): R79.89 - Other specified abnormal findings of blood chemistry Status: Acute Assessment and Plan: troponins were initially elevated but trended down. EKG did not show any acute ST changes. troponin elevation likely related to respiratory distress - echocardiogram has been ordered (7) Hypertension: Qualifiers: Hypertension type: essential hypertension Qualified Code(s): I10 - Essential (primary) hypertension Code(s): I10 - Essential (primary) hypertension Status: Chronic Assessment and Plan: patient with history of essential hypertension, - blood pressures are well controlled - continue amlodipine, Coreg, hydralazine, Imdur - continue to monitor blood pressures closely (8) DVT prophylaxis: Code(s): Z29.9 - Encounter for prophylactic measures, unspecified Status: Acute Assessment and Plan: patient will require anticoagulation given COVID-19 is thrombogenic. - continue heparin 5000 units SQ q.8 hours (9) Dietary counseling and surveillance: Code(s): Z71.3 - Dietary counseling and surveillance Status: Acute Assessment and Plan: on a renal diet Additional Plan discussed with patient updated her with her condition and plan of care. I also asked her that if her condition worsens that she requires more oxygen and/or intubation and placement on a mechanical ventilator to which she said yes she wants to be a full code. Code status: Full code Critical care time spent: 33 minutes Due to a high probability of clinically significant, life threatening deterioration, the patient required my
--- NOTE | 2019-12-18 10:11 | PCDIET ---
Nutrition ICU rounding Complete: Pt current nutrition is 4gm Na. Nutrition recommendation: Agree Last recorded weight is 65.4 kg. Bowel Motility: BM yesterday Labs Reviewed:Glucose 127, GFR 10 Additional Notes: 25-50% PO intake. Bowels moving. MD recommends nutrition supplements due to reduced PO intake. Nepro added BID. Nepro provides 425 kcal and 19.1g protein per serving. It is a good source of fiber and an excellent source of high quality protein to help meet nutritional needs and replace protein lost in dialysis. It is low in phosphorus, potassium, and sodium with a carbohydrate steady blend to manage blood glucose response. We will monitor daily in ICU rounds.
[2019-12-18] MEDS: ALBUMIN HUMAN 25% 12.5 GM/50ML 50 ML IVPB (11:20)
--- NOTE | 2019-12-18 11:29 | PM.PNNEP ---
Progress Note: A&P Assessment and Plan (1) End stage renal disease: Code(s): N18.6 - End stage renal disease Status: Chronic Assessment and Plan: HD today and continue T/T/S schedule for now follow electrolytes, volume status, and clearance (2) COVID-19: Code(s): U07.1 - COVID-19 Status: Acute Assessment and Plan: positive testing continue supportive therapy (3) Pneumonia: Qualifiers: Laterality: bilateral Lung location: unspecified part of lung Pneumonia type: due to unspecified organism Qualified Code(s): J18.9 - Pneumonia, unspecified organism Code(s): J18.9 - Pneumonia, unspecified organism Status: Acute Assessment and Plan: suspected related to # 2 and bacterial infection follow culture data on antibiotics (4) Hypertension: Qualifiers: Hypertension type: essential hypertension Qualified Code(s): I10 - Essential (primary) hypertension Code(s): I10 - Essential (primary) hypertension Status: Chronic Assessment and Plan: well controlled at this time follow trend of hemodynamics (5) DM2 (diabetes mellitus, type 2): Qualifiers: Diabetes mellitus group home insulin use: with rodent exterminator use Diabetes mellitus complication status: with kidney complications Diabetes mellitus complication detail: with chronic kidney disease Chronic kidney disease stage: on chronic dialysis Qualified Code(s): E11.22 - Type 2 diabetes mellitus with diabetic chronic kidney disease; N18.6 - End stage renal disease; Z79.4 - terminal worker (current) use of insulin; Z99.2 - Dependence on renal dialysis Code(s): E11.9 - Type 2 diabetes mellitus without complications Status: Acute Assessment and Plan: follow accuchecks on SSI and Lantus Discussed case with Dr. Simmons. Will continue to follow Subjective Date/time seen: 12/18/19 11:29 Seen on dialysis at the time of my visit (seen on HD at ~ 11:10AM); unfortunately, BP is a bit low so fluid removal is limited at this time; respiratory status seem stable at this time. Exam Narrative: Exam Narrative: General: Elderly AA female in NAD Heart: normal S1 and S2; no rub Lungs: coarse breath sounds Abdomen: soft, nontender, nondistended, positive bowel sounds Extremities: no cyanosis or clubbing; no edema Skin: warm and dry Objective Data Vital Signs Vital Signs: Vital Signs Temp Pulse Resp BP Pulse Ox 05/14/20 11:29 91 12/18/19 10:00 70 12/18/19 09:45 37.3 C 74 22 H 109/44 L 90 12/18/19 08:41 92 12/18/19 08:00 79 12/18/19 07:56 37.3 C 76 20 119/56 L 89 L 12/18/19 07:51 78 12/18/19 06:00 76 20 114/63 93 12/18/19 04:00 37.8 C H 76 18 109/49 L 90 12/18/19 02:21 37.7 C H 12/18/19 02:00 76 24 H 118/49 L 93 12/18/19 00:00 38.3 C H 82 21 H 98/43 L 93 12/17/19 23:56 38.3 C H 12/17/19 22:00 82 25 H 107/46 L 100 12/17/19 21:20 100 12/17/19 20:43 100 12/17/19 20:13 82 12/17/19 20:00 37.9 C H 82 16 111/44 L 100 12/17/19 18:00 83 25 H 128/58 L 100 12/17/19 17:30 79 107/48 L 12/17/19 17:15 75 127/60 12/17/19 17:00 78 128/72 12/17/19 16:45 76 128/52 L 12/17/19 16:30 74 117/57 L 12/17/19 16:15 76 127/44 L 12/17/19 16:00 37.8 C H 78 20 129/59 L 97 12/17/19 15:45 75 133/111 H 12/17/19 15:30 78 128/85 12/17/19 15:00 37.3 C 82 133/44 L 12/17/19 14:00 82 25 H 133/44 L 100 12/17/19 12:00 37.2 C 84 24 H 120/42 L 91 Intake/Output Intake/Output: Intake & Output 12/15/19 12/16/19 12/17/19 12/18/19 23:59 23:59 23:59 23:59 Intake Total 300 1140 1120 150 Output Total 300 3200 Balance 300 840 -2080 150 Meds/Results Medications: Active Medications Generic Name Dose Route Start Last Admin Trade Name Freq PRN Reason Stop Dose Admin Acetaminophen 650 mg 0
[2019-12-18 14:43] LABS: Ferritin > 2000.00 ng/mL (11.1-264)
--- NOTE | 2019-12-18 18:28 | PM.IMPN ---
Progress Note: A&P Assessment and Plan (1) Acute respiratory failure: Qualifiers: Respiratory failure complication: hypoxia Qualified Code(s): J96.01 - Acute respiratory failure with hypoxia Code(s): J96.00 - Acute respiratory failure, unspecified whether with hypoxia or hypercapnia Status: Acute Assessment and Plan: Patient on HFNC at 15L and requiring NRB at times. She appears comfortable with minimal symptoms. Continue supportive care. Wean o2 as toelrated. Appreciate body stylist input. (2) COVID-19: Code(s): U07.1 - COVID-19 Status: Acute Assessment and Plan: SARS-CoV-2 RNA positive. Inflammatory markers increasing with LDH higher at 1833, CRP 33, and Ferritin >2000. CXR showing diffuse multifocal disease c/w COVID-19. Fevers overnight but better today. Will continue to follow CXR findings and inflammatory markers. Continue supportive care. Repeat total CK. (3) Pneumonia: Qualifiers: Laterality: bilateral Lung location: unspecified part of lung Pneumonia type: due to unspecified organism Qualified Code(s): J18.9 - Pneumonia, unspecified organism Code(s): J18.9 - Pneumonia, unspecified organism Status: Acute Assessment and Plan: CXR findings as mentioned above. Can not rule out PNA. BCx NGTD. Continue Rocephin and Azithromycin. Wean O2 as tolerated. Continue Albuterol HFA. (4) Elevated troponin: Code(s): R79.89 - Other specified abnormal findings of blood chemistry Status: Acute Assessment and Plan: Troponin 0.23 on admission but trending downward. EKG showing no acute changes. Suspect elevated troponin related to COVID-19 and/or from the mild rhabdomyolysis. Echo showing EF 65% and Grade 1 diastolic dysfunction but no obvious wall motion abnormalities. Continue telemetry. (5) End stage renal disease on dialysis: Code(s): N18.6 - End stage renal disease; Z99.2 - Dependence on renal dialysis Status: Chronic Assessment and Plan: Patient on parts counterman HD on . Had HD / and no fluid removed. Had HD again yesterday and 3L removed. HD today but no fluid removed. Nephrology has been consulted and appreciate their input. Continue Renvela. Continue hemodialysis to maintain good fluid status. (6) Hypertension: Qualifiers: Hypertension type: essential hypertension Qualified Code(s): I10 - Essential (primary) hypertension Code(s): I10 - Essential (primary) hypertension Status: Chronic Assessment and Plan: Blood pressure reviewed on 12/18/2019. Blood pressure mostly well controlled but was soft during HD. Amlodipine, Coreg, hydralazine and Imdur all placed on hold. Watch for rebound HTN. (7) DM2 (diabetes mellitus, type 2): Qualifiers: Chronic kidney disease stage: on chronic dialysis Diabetes mellitus complication detail: with chronic kidney disease Diabetes mellitus complication status: with kidney complications Diabetes mellitus group home insulin use: with parts counterman use Qualified Code(s): E11.22 - Type 2 diabetes mellitus with diabetic chronic kidney disease; N18.6 - End stage renal disease; Z79.4 - continuous churn buttermaker (current) use of insulin; Z99.2 - Dependence on renal dialysis Code(s): E11.9 - Type 2 diabetes mellitus without complications Status: Acute Assessment and Plan: A1c 6.8. Glucose reviewed on 12/18/2019. Glucose well controlled. Continue sliding scale protocol. Continue Lantus. (8) Hyperlipidemia: Qualifiers: Hyperlipidemia type: unspecified Qualified Code(s): E78.5 - Hyperlipidemia, unspecified Code(s): E78.5 - Hyperlipidemia, unspecified Status: Chronic Assessment and Plan: AST up to 127 otherwise LFTs mostly within normal limits. Will continue to hold atorvastatin given the elevated total CK to 950. Will repeat total CK. (9) Glaucoma
[2019-12-18] MEDS: INSULIN GLARGINE (*BKC) 100 UNITS/ML SUB-Q (20:25)
[2019-12-18 21:07] LABS: Glucose Point of Care 155 (65-105)
[2019-12-18 21:07] LABS: Glucose Point of Care 248 (65-105)
--- NOTE | 2019-12-18 23:00 | P.PNCROSS_ITS ---
Event Note Event Note Event Note: I received a phone call from the patient's nurse around 2300, with concerns of hypoxia despite being on high-flow nasal cannula as well as 15 liter non-rebreather. Decision was made to try the patient on Airvo, and initially she had some desaturations with that but did rebound to 87%. I requested that the nurse inform net developer consultant, Dr. Simmons, regarding change in condition and he gave the orders to go ahead and intubate the patient. Verbal consent was obtained from the patient. Dr. Simmons gave vent settings and sedation orders.
[2019-12-19] VITALS (25 sets, daily range): BP systolic 85–148; BP diastolic 42–69; PULSE 74–88; RESP 16–20; TEMP 37.2–38.8; O2SAT 90–100; BMI 21.9
--- NOTE | 2019-12-19 00:05 | WPDPROCEDUR ---
Procedures Intubation Intubation Date: 12/19/19 Intubation Time: 00:05 Consent: Patient gave verbal consent. A pre-procedural Time-Out was completed immediately before starting the procedure and confirmed: Patient Identification, Site, Procedure, Patient Position and the Availability of Requisite Equipment: Yes Sedative: etomidate Mg given: 10 Paralytic: succinylcholine Mg given: 60 Laryngoscope: fiber optic video scope Assist device used: fiber optic device ET tube size: 7.5 Tube secured depth (cm): 23 Tube secured location: lips Tube placement confirmation: visualized tube passing through cords, equal breath sounds bilaterally, no breath sounds over epigastrium and confirmation by capnometry Patient tolerated procedure: well Intubation complications: none Additional comments: Vent settings and sedation orders per Dr. Simmons.
[2019-12-19] MEDS: ALBUMIN HUMAN 25% 25 GM/100 ML 100 ML IVPB (00:22)
--- NOTE | 2019-12-19 00:30 | WPDPROCEDUR ---
Procedures Central Line Placement Right Femoral: Central Line Date: 12/19/19 Central Line Time: 00:25 Discussed w/ the patient/family/POA,the placement of a central venous catheter, including its clinical necessity/indication & associated potential risks, benifits and alternatives.: Yes The patient/family/POA understand(s) and acknowledge(s) the need to proceed with central venous catheter insertion as an important element of the patient's clinical management.: Yes Consent: Patient gave consent. Time Out Performed: Yes Patient Position: supine Patient placed on monitor/pulse ox: Yes Provider Prep: mask, sterile gown, sterile gloves, Max. sterile barrier precautions, cap and hand hygiene Central line prep: Povidone-Iodine 1% Local anesthesia used: lidocaine 1% Amount of anesthesia used (ml): 5 Ultrasound used for placement: Yes Central line lumen inserted: triple Taiwanese: 7 Length (cm): 20 Post procedure: sutured in place, good blood return, all ports aspirated, flushed, capped, tegaderm, hemostatic disc and aseptic technique maintained throughout procedure Post procedure x-ray: other (n/a for femoral placement ) Patient tolerated procedure: well Complications: none
[2019-12-19] MEDS: NOREPINEPHRINE 8 MG/D5W 250 ML 8 MG/250 ML BAG 9.4 MG IV CONT (01:16)
[2019-12-19 05:15] LABS: Base Excess ABG 4.5 mEq/l (+/-2.0); HCO3 ABG 28.6 mEq/l (22.0-26.0); PO2 ABG 84.4 mmHg (80.0-100.0); pH ABG 7.462 (7.350-7.450)
[2019-12-19 05:16] LABS: Alveolar/Arterial O2 Gradient 587.6 mmHg; Oxygen Content ABG 14.1 %vol (16.0-22.0); Total Hemoglobin 10.5 g/dL (12.0-18.0)
[2019-12-19 05:17] LABS: Carboxyhemoglobin 0.3 % THb (0-2.0); Device VENTILATOR; Fractional Inspired Oxygen 100 %; Methemoglobin ABG 0.4 %THb (0-1.5); Modified Allen's Test Unable to perform; Oxygen Saturation ABG 96.8 % (95.0-100.0); Oxyhemoglobin 94.8 % THb (90.0-100.0); PO2 FiO2 Ratio Arterial Blood 0.84 %; Reduced Hemoglobin 4.5 %THb (0-5.0); Site Drawn RIGHT RADIAL
[2019-12-19 05:18] LABS: Arterial Blood Gas PEEP 8 cmH2O; Arterial Blood Gas Tidal Volume 450 ml; Arterial Blood Gas Vent Mode CMV; Arterial Blood Gas Ventilator rate 16 /MIN
[2019-12-19] MEDS: HEPARIN SODIUM 5,000 UNITS/ML VIAL 5000 UNITS SUB-Q ×3 (05:23→21:10)
[2019-12-19 05:30] LABS: Basophils Percent Auto 0.2 % (0.2-1.2); Hematocrit 30.4 % (37.0-47.0); Hemoglobin 9.8 g/dL (12.0-15.0); Immature Granulocyte Absolute 0.15 K/mm3 (0.00-0.031); Immature Granulocyte Percent A 1.2 % (0-0.5); Lymphocytes Absolute Auto 4.44 K/mm3 (0.9-3.2); Lymphocytes Percent Auto 36.1 % (18.3-44.2); Mean Corpuscular HGB Conc 32.2 g/dl (32-36); Mean Corpuscular Hemoglobin 28.8 pg (26-34); Mean Corpuscular Volume 89.4 fl (80-100); Mean Platelet Volume 11.6 fl (7.4-10.4); Monocytes Absolute Auto 0.5 K/mm3 (0.1-0.6); Monocytes Percent Auto 3.7 % (2.6-8.5); Neutrophils Absolute Auto 7.2 K/mm3 (1.3-6.7); Neutrophils Percent Auto 58.8 % (45.5-73.1); Platelet Count Result 199 k/mm3 (150-375); Red Cell Distribution Width 13.9 % (11.5-14.5); White Blood Count 12.3 K/mm3 (4.5-10.0)
[2019-12-19 06:15] LABS: Burr Cells 1+ (NORMAL); Platelet Estimate Adequate (Adequate)
--- NOTE | 2019-12-19 06:57 | PC.NURSE ---
Attempted to reach patient's next of kin to update on intubation several times throughout the night. Patient's [facility] voicemail is full.
[2019-12-19 07:14] LABS: Alanine Aminotransferase 12 U/L (4-35); Albumin Level 3.6 g/dL (3.5-5.1); Alkaline Phosphatase 116 U/L (38-126); Aspartate Amino Transferase 138 U/L (14-36); Bilirubin,Total 0.7 mg/dL (0.2-1.3); Blood Urea Nitrogen 27 mg/dL (7-17); CRP 29.2 mg/dL (<1.0); Calcium 8.7 mg/dL (8.4-10.2); Carbon Dioxide 34 mmol/L (22-30); Chloride 94 mmol/L (98-107); Creatine Kinase 1575 U/L (30-135); Estimated CRCL calculation 13 ml/min; Estimated Glomerular Filt Rate 15; Glucose 181 mg/dL (65-105); Lactate Dehydrogenase 1645 U/L (313-618); Phosphorus 2.5 mg/dL (2.5-4.5); Potassium 3.5 mmol/L (3.4-5.0); Sodium 134 mmol/L (137-145)
[2019-12-19 07:41] LABS: Glucose Point of Care 83 (65-105)
[2019-12-19] MEDS: BRIMONIDINE TARTRATE 0.2% OP SOLN 5 ML BTL 1 DROP EACH EYE ×2 (09:40→16:51)
[2019-12-19] MEDS: CLOPIDOGREL BISULFATE 75 MG TABLET PO (09:40)
[2019-12-19] MEDS: TIMOLOL MALEATE 0.5% OP SOLN 5 ML BTL 1 DROP EACH EYE ×2 (09:40→16:51)
--- NOTE | 2019-12-19 09:42 | PM.IMPN ---
Progress Note: A&P Assessment and Plan (1) Acute respiratory failure: Qualifiers: Respiratory failure complication: hypoxia Qualified Code(s): J96.01 - Acute respiratory failure with hypoxia Code(s): J96.00 - Acute respiratory failure, unspecified whether with hypoxia or hypercapnia Status: Acute Assessment and Plan: Patient on HFNC at 15L and requiring NRB at times yesterday but condition worsened to the point where she need mechanical ventilation. She currently intubated and sedated. CXR reviewed showing stable diffuse lung disease. Continue Antibiotics. Continue albuterol. Continue supportive care Appreciate development and planning engineer input. (2) COVID-19: Code(s): U07.1 - COVID-19 Status: Acute Assessment and Plan: SARS-CoV-2 RNA positive. Inflammatory markers increasing with LDH better at 1645 and CRP down to 29. Ferritin pending. CXR showing diffuse multifocal disease c/w COVID-19. Still with low grade fevers. Will continue to follow CXR findings and inflammatory markers. Continue supportive care. Follow total CK. (3) Pneumonia: Qualifiers: Laterality: bilateral Lung location: unspecified part of lung Pneumonia type: due to unspecified organism Qualified Code(s): J18.9 - Pneumonia, unspecified organism Code(s): J18.9 - Pneumonia, unspecified organism Status: Acute Assessment and Plan: CXR findings as mentioned above. Can not rule out PNA. BCx NGTD. Continue Rocephin and Azithromycin. Continue Albuterol HFA. (4) Elevated troponin: Code(s): R79.89 - Other specified abnormal findings of blood chemistry Status: Acute Assessment and Plan: Troponin 0.23 on admission but trending downward. EKG showing no acute changes. Suspect elevated troponin related to COVID-19 and/or from the mild rhabdomyolysis. Echo showing EF 65% and Grade 1 diastolic dysfunction but no obvious wall motion abnormalities. Continue telemetry. (5) End stage renal disease on dialysis: Code(s): N18.6 - End stage renal disease; Z99.2 - Dependence on renal dialysis Status: Chronic Assessment and Plan: Patient on residential HD on . Had HD 12/15 (DUF) and HD again 12/16 with 3L removed. HD 12/17 but no fluid removed. Nephrology has been consulted and appreciate their input. Continue Renvela. Continue hemodialysis to maintain good fluid status. (6) Hypertension: Qualifiers: Hypertension type: essential hypertension Qualified Code(s): I10 - Essential (primary) hypertension Code(s): I10 - Essential (primary) hypertension Status: Chronic Assessment and Plan: Blood pressure reviewed on 12/19/2019. Blood pressure remains well controlled. Amlodipine, Coreg, hydralazine and Imdur have been placed on hold. Watch for rebound HTN. (7) DM2 (diabetes mellitus, type 2): Qualifiers: Chronic kidney disease stage: on chronic dialysis Diabetes mellitus complication detail: with chronic kidney disease Diabetes mellitus complication status: with kidney complications Diabetes mellitus ferry terminal supervisor insulin use: with residential use Qualified Code(s): E11.22 - Type 2 diabetes mellitus with diabetic chronic kidney disease; N18.6 - End stage renal disease; Z79.4 - equipment operator intermodal yard (current) use of insulin; Z99.2 - Dependence on renal dialysis Code(s): E11.9 - Type 2 diabetes mellitus without complications Status: Acute Assessment and Plan: A1c 6.8. Glucose reviewed on 12/19/2019. Glucose mostly well controlled. Continue sliding scale protocol. Continue Lantus. Watch for hypoglycemia. Start tube feedings when okay with development and planning engineer. (8) Hyperlipidemia: Qualifiers: Hyperlipidemia type: unspecified Qualified Code(s): E78.5 - Hyperlipidemia, unspecified Code(s): E78.5 - Hyperlipidemia, unspecified Status: Chronic Assessment and Plan: AST up t
[2019-12-19] MEDS: hetaSTARCH 6%/NACL 500 ML 250 ML IV CONT (11:00)
--- NOTE | 2019-12-19 12:15 | WPDINTPN ---
Progress Note: A&P Assessment and Plan (1) Acute respiratory failure: Qualifiers: Respiratory failure complication: hypoxia Qualified Code(s): J96.01 - Acute respiratory failure with hypoxia Code(s): J96.00 - Acute respiratory failure, unspecified whether with hypoxia or hypercapnia Status: Acute Assessment and Plan: patient presented with shortness of breath, nonproductive cough on 12/15/2019, chest x-ray at that time showed multifocal lung disease - patient is positive for COVID-19 - on 12/18/2019: Patient with persistent hypoxia, was intubated as she was started out in was tachypneic. - On CMV mode of ventilation, 100% FiO2 and 8 of PEEP. Increased peep to 12 and decreased of FiO2 to 80%, will wean FiO2 to maintain O2 sats greater than 92% - continue ceftriaxone and azithromycin - continue albuterol MDI (2) COVID-19: Code(s): U07.1 - COVID-19 Status: Acute Assessment and Plan: SARs-CoV-2 PCR positive - continue airborne, droplet, contact isolation /precautions - inflammatory markers are elevated - (3) Pneumonia: Qualifiers: Laterality: bilateral Lung location: unspecified part of lung Pneumonia type: due to unspecified organism Qualified Code(s): J18.9 - Pneumonia, unspecified organism Code(s): J18.9 - Pneumonia, unspecified organism Status: Acute Assessment and Plan: as above (4) End stage renal disease: Code(s): N18.6 - End stage renal disease Status: Chronic Assessment and Plan: end-stage renal disease on hemodialysis Tuesdays, , Saturdays - appreciate Nephrology evaluation - 3000 mL fluid removed with dialysis on 12/17/2019 - dialysis per Nephrology (5) DM2 (diabetes mellitus, type 2): Qualifiers: Diabetes mellitus terminal operations supervisor insulin use: with terminal operations supervisor use Diabetes mellitus complication status: with kidney complications Diabetes mellitus complication detail: with chronic kidney disease Chronic kidney disease stage: on chronic dialysis Qualified Code(s): E11.22 - Type 2 diabetes mellitus with diabetic chronic kidney disease; N18.6 - End stage renal disease; Z79.4 - manager intermediate (current) use of insulin; Z99.2 - Dependence on renal dialysis Code(s): E11.9 - Type 2 diabetes mellitus without complications Status: Acute Assessment and Plan: continue Accu-Cheks, sliding scale insulin and Lantus (6) Elevated troponin: Code(s): R79.89 - Other specified abnormal findings of blood chemistry Status: Acute Assessment and Plan: troponins were initially elevated but trended down. EKG did not show any acute ST changes. troponin elevation likely related to respiratory distress - echocardiogram has been ordered (7) Hypertension: Qualifiers: Hypertension type: essential hypertension Qualified Code(s): I10 - Essential (primary) hypertension Code(s): I10 - Essential (primary) hypertension Status: Chronic Assessment and Plan: patient with history of essential hypertension, - blood pressures are well controlled - patient hypotensive requiring Levophed, will hold all antihypertensives - continue to monitor blood pressures closely (8) DVT prophylaxis: Code(s): Z29.9 - Encounter for prophylactic measures, unspecified Status: Acute Assessment and Plan: patient will require anticoagulation given COVID-19 is thrombogenic. - continue heparin 5000 units SQ q.8 hours (9) Dietary counseling and surveillance: Code(s): Z71.3 - Dietary counseling and surveillance Status: Acute Assessment and Plan: will start tube feeds (10) Shock: Code(s): R57.9 - Shock, unspecified Status: Acute Assessment and Plan: septic versus hypovolemic. Patient patient could also be hypotensive due to positive pressure ventilation and sedation. - Started on Levophed, and maintain
[2019-12-19 12:22] LABS: Ferritin > 2000.00 ng/mL (11.1-264)
--- NOTE | 2019-12-19 13:21 | PM.PNNEP ---
Progress Note: A&P Assessment and Plan (1) End stage renal disease: Code(s): N18.6 - End stage renal disease Status: Chronic Assessment and Plan: HD tomorrow and continue T/T/S schedule for now follow electrolytes, volume status, and clearance (2) Acute respiratory failure: Qualifiers: Respiratory failure complication: hypoxia Qualified Code(s): J96.01 - Acute respiratory failure with hypoxia Code(s): J96.00 - Acute respiratory failure, unspecified whether with hypoxia or hypercapnia Status: Acute Assessment and Plan: presumably due to #3 and #4 continue ventilatory support wean as able (3) COVID-19: Code(s): U07.1 - COVID-19 Status: Acute Assessment and Plan: positive testing continue supportive therapy (4) Pneumonia: Qualifiers: Laterality: bilateral Lung location: unspecified part of lung Pneumonia type: due to unspecified organism Qualified Code(s): J18.9 - Pneumonia, unspecified organism Code(s): J18.9 - Pneumonia, unspecified organism Status: Acute Assessment and Plan: suspected related to # 2 and bacterial infection follow culture data on antibiotics (5) Hypertension: Qualifiers: Hypertension type: essential hypertension Qualified Code(s): I10 - Essential (primary) hypertension Code(s): I10 - Essential (primary) hypertension Status: Chronic Assessment and Plan: well controlled at this time follow trend of hemodynamics (6) DM2 (diabetes mellitus, type 2): Qualifiers: Chronic kidney disease stage: on chronic dialysis Diabetes mellitus complication detail: with chronic kidney disease Diabetes mellitus complication status: with kidney complications Diabetes mellitus terminologist insulin use: with residential use Qualified Code(s): E11.22 - Type 2 diabetes mellitus with diabetic chronic kidney disease; N18.6 - End stage renal disease; Z79.4 - [facility] (current) use of insulin; Z99.2 - Dependence on renal dialysis Code(s): E11.9 - Type 2 diabetes mellitus without complications Status: Acute Assessment and Plan: follow accuchecks on SSI and Lantus Will continue to follow Subjective Date/time seen: 12/19/19 13:21 Events noted overnight -- worsening hypoxia despite all intervention to date resulting in intubation and mechanical ventilation; femoral central line placed as well; appears comfortable at this time Exam Narrative: Exam Narrative: General: Elderly AA female in NAD (intubated/sedated) Heart: normal S1 and S2; no rub Lungs: coarse breath sounds with crackles at the bases Abdomen: soft, nontender, nondistended, positive bowel sounds Extremities: no cyanosis or clubbing; no edema Skin: warm and intact Objective Data Vital Signs Vital Signs: Vital Signs Temp Pulse Resp BP Pulse Ox 12/19/19 12:14 82 98 12/19/19 12:00 37.9 C H 80 20 121/51 L 98 12/19/19 09:54 84 20 137/68 97 12/19/19 09:53 84 12/19/19 08:55 81 100 12/19/19 08:00 38.0 C H 81 19 136/54 L 97 12/19/19 06:00 77 16 129/49 L 100 12/19/19 05:26 79 100 12/19/19 04:00 37.3 C 74 16 135/46 L 100 12/19/19 02:00 37.4 C 74 16 135/46 L 100 12/19/19 00:12 82 91 12/19/19 00:00 37.2 C 82 16 148/54 H 90 12/18/19 22:20 79 30 H 87 L 12/18/19 22:00 79 16 100/56 L 87 L 12/18/19 20:54 91 24 H 89 L 12/18/19 20:00 36.1 C L 77 23 H 101/61 95 12/18/19 18:00 75 12/18/19 16:00 36.7 C 74 26 H 100/52 L 92 12/18/19 15:29 95 12/18/19 14:00 77 12/18/19 13:54 36.2 C L 77 26 H 105/49 L 93 Intake/Output Intake/Output: Intake & Output 12/16/19 12/17/19 12/18/19 12/19/19 23:59 23:59 23:59 23:59 Intake Total 1140 1120 740 100 Output Total 300 3200 0 Balance 840 -2080 740 100 Meds/Results Medications: Active Medications Generic Name D
[2019-12-19 13:34] LABS: Glucose Point of Care 116 (65-105)
[2019-12-19 17:03] LABS: Glucose Point of Care 121 (65-105)
[2019-12-19] MEDS: ACETAMINOPHEN 325 MG TABLET 650 MG PO (21:19)
[2019-12-19] MEDS: INSULIN GLARGINE (*BKC) 100 UNITS/ML SUB-Q (22:22)
[2019-12-19] MEDS: NOREPINEPHRINE 8 MG/D5W 250 ML 8 MG/250 ML BAG 5.6 MG IV CONT (22:22)
[2019-12-20] VITALS (36 sets, daily range): BP systolic 86–132; BP diastolic 41–81; PULSE 71–86; RESP 16–27; TEMP 37–37.9; O2SAT 89–100
[2019-12-20 00:10] LABS: Glucose Point of Care 84 (65-105)
[2019-12-20 06:32] LABS: Basophils Percent Auto 0.2 % (0.2-1.2); Eosinophils Percent Auto 0.1 % (0-4.4); Hematocrit 27.4 % (37.0-47.0); Hemoglobin 8.9 g/dL (12.0-15.0); Immature Granulocyte Absolute 0.15 K/mm3 (0.00-0.031); Immature Granulocyte Percent A 1.2 % (0-0.5); Lymphocytes Absolute Auto 3.79 K/mm3 (0.9-3.2); Lymphocytes Percent Auto 29.7 % (18.3-44.2); Mean Corpuscular HGB Conc 32.5 g/dl (32-36); Mean Corpuscular Hemoglobin 28.9 pg (26-34); Mean Platelet Volume 11.1 fl (7.4-10.4); Monocytes Absolute Auto 0.5 K/mm3 (0.1-0.6); Monocytes Percent Auto 3.5 % (2.6-8.5); Neutrophils Absolute Auto 8.3 K/mm3 (1.3-6.7); Neutrophils Percent Auto 65.3 % (45.5-73.1); Nucleated Red Blood Cells Perc 0.2 % (0.0-0.2); Platelet Count Result 187 k/mm3 (150-375); Red Blood Count 3.08 M/mm3 (4.2-5.4); Red Cell Distribution Width 14.3 % (11.5-14.5); White Blood Count 12.7 K/mm3 (4.5-10.0)
[2019-12-20] MEDS: HEPARIN SODIUM 5,000 UNITS/ML VIAL 5000 UNITS SUB-Q ×3 (07:00→22:12)
[2019-12-20 08:20] LABS: Alanine Aminotransferase 10 U/L (4-35); Albumin Level 2.9 g/dL (3.5-5.1); Alkaline Phosphatase 129 U/L (38-126); Aspartate Amino Transferase 115 U/L (14-36); Bilirubin,Total 0.8 mg/dL (0.2-1.3); Blood Urea Nitrogen 36 mg/dL (7-17); CRP 32.8 mg/dL (<1.0); Calcium 8.3 mg/dL (8.4-10.2); Carbon Dioxide 35 mmol/L (22-30); Chloride 94 mmol/L (98-107); Creatine Kinase 869 U/L (30-135); Estimated CRCL calculation 8 ml/min; Estimated Glomerular Filt Rate 9; Glucose 66 mg/dL (65-105); Lactate Dehydrogenase 1274 U/L (313-618); Magnesium 1.9 mg/dL (1.6-2.3); Phosphorus 3.1 mg/dL (2.5-4.5); Potassium 3.5 mmol/L (3.4-5.0); Sodium 134 mmol/L (137-145)
[2019-12-20 08:20] LABS: Alveolar/Arterial O2 Gradient 390.3 mmHg; Base Excess ABG 7.4 mEq/l (+/-2.0); Fractional Inspired Oxygen 70 %; HCO3 ABG 31.4 mEq/l (22.0-26.0); Oxygen Content ABG 15.9 %vol (16.0-22.0); Oxygen Saturation ABG 93.9 % (95.0-100.0); Oxyhemoglobin 91.6 % THb (90.0-100.0); PCO2 ABG 41.9 mmHg (35.0-45.0); PO2 ABG 63.8 mmHg (80.0-100.0); PO2 FiO2 Ratio Arterial Blood 0.91 %; Total Hemoglobin 12.3 g/dL (12.0-18.0); pH ABG 7.492 (7.350-7.450)
[2019-12-20 08:21] LABS: Arterial Blood Gas PEEP 10 cmH2O; Arterial Blood Gas Tidal Volume 400 ml; Arterial Blood Gas Vent Mode CMV; Arterial Blood Gas Ventilator rate 18 /MIN; Device VENTILATOR; Modified Allen's Test Pass; Site Drawn LEFT RADIAL
[2019-12-20] MEDS: DEXTROSE 50% 25 GM/50 ML SYRINGE IV PUSH (08:49)
[2019-12-20] MEDS: TIMOLOL MALEATE 0.5% OP SOLN 5 ML BTL 1 DROP EACH EYE ×2 (08:53→17:46)
[2019-12-20] MEDS: BRIMONIDINE TARTRATE 0.2% OP SOLN 5 ML BTL 1 DROP EACH EYE ×2 (08:53→17:46)
[2019-12-20] MEDS: CLOPIDOGREL BISULFATE 75 MG TABLET FEED TUBE (10:34)
[2019-12-20] MEDS: SEVELAMER CARBONATE 800 MG TABLET FEED TUBE ×3 (10:35→17:46)
--- NOTE | 2019-12-20 11:08 | WPDINTPN ---
Progress Note: A&P Assessment and Plan (1) Acute respiratory failure: Qualifiers: Respiratory failure complication: hypoxia Qualified Code(s): J96.01 - Acute respiratory failure with hypoxia Code(s): J96.00 - Acute respiratory failure, unspecified whether with hypoxia or hypercapnia Status: Acute Assessment and Plan: patient presented with shortness of breath, nonproductive cough on 12/15/2019, chest x-ray at that time showed multifocal lung disease - patient is positive for COVID-19 - on 12/18/2019: Patient with persistent hypoxia, was intubated as she was started out in was tachypneic. - On CMV mode of ventilation, peep of 10 and 70% FiO2,, will wean FiO2 to maintain O2 sats greater than 92% - continue ceftriaxone and azithromycin - continue albuterol MDI (2) COVID-19: Code(s): U07.1 - COVID-19 Status: Acute Assessment and Plan: SARs-CoV-2 PCR positive - continue airborne, droplet, contact isolation /precautions - inflammatory markers are elevated - (3) Pneumonia: Qualifiers: Laterality: bilateral Lung location: unspecified part of lung Pneumonia type: due to unspecified organism Qualified Code(s): J18.9 - Pneumonia, unspecified organism Code(s): J18.9 - Pneumonia, unspecified organism Status: Acute Assessment and Plan: as above (4) End stage renal disease: Code(s): N18.6 - End stage renal disease Status: Chronic Assessment and Plan: end-stage renal disease on hemodialysis Tuesdays, , Saturdays - appreciate Nephrology evaluation - 3000 mL fluid removed with dialysis on 12/17/2019 - dialysis per Nephrology (5) DM2 (diabetes mellitus, type 2): Qualifiers: Chronic kidney disease stage: on chronic dialysis Diabetes mellitus complication detail: with chronic kidney disease Diabetes mellitus complication status: with kidney complications Diabetes mellitus group home insulin use: with watermaster use Qualified Code(s): E11.22 - Type 2 diabetes mellitus with diabetic chronic kidney disease; N18.6 - End stage renal disease; Z79.4 - [facility] (current) use of insulin; Z99.2 - Dependence on renal dialysis Code(s): E11.9 - Type 2 diabetes mellitus without complications Status: Acute Assessment and Plan: continue Accu-Cheks, sliding scale insulin - patient was hypoglycemic this morning with blood glucose of 66, was given D50 per protocol, will hold Lantus at this time (6) Elevated troponin: Code(s): R79.89 - Other specified abnormal findings of blood chemistry Status: Acute Assessment and Plan: troponins were initially elevated but trended down. EKG did not show any acute ST changes. troponin elevation likely related to respiratory distress - echocardiogram has been ordered (7) Hypertension: Qualifiers: Hypertension type: essential hypertension Qualified Code(s): I10 - Essential (primary) hypertension Code(s): I10 - Essential (primary) hypertension Status: Chronic Assessment and Plan: patient with history of essential hypertension, - blood pressures are well controlled - patient hypotensive requiring Levophed, will hold all antihypertensives - continue to monitor blood pressures closely (8) DVT prophylaxis: Code(s): Z29.9 - Encounter for prophylactic measures, unspecified Status: Acute Assessment and Plan: patient will require anticoagulation given COVID-19 is thrombogenic. - continue heparin 5000 units SQ q.8 hours (9) Dietary counseling and surveillance: Code(s): Z71.3 - Dietary counseling and surveillance Status: Acute Assessment and Plan: starting tube feeds (10) Shock: Code(s): R57.9 - Shock, unspecified Status: Acute Assessment and Plan: septic versus hypovolemic. Patient patient could also be hypotensive due to positive pressure
--- NOTE | 2019-12-20 11:10 | P.PNNP_ITS ---
Progress Note: A&P Assessment and Plan (1) End stage renal disease: Code(s): N18.6 - End stage renal disease Status: Chronic Assessment and Plan: * HD today and continue T/T/S schedule for now * follow electrolytes, volume status, and clearance * fluid removal has been difficult recently -- suspect relatively euvolemic at this time so no plan for aggressive ultrafiltration with HD today (2) Acute respiratory failure: Qualifiers: Respiratory failure complication: hypoxia Qualified Code(s): J96.01 - Acute respiratory failure with hypoxia Code(s): J96.00 - Acute respiratory failure, unspecified whether with hypoxia or hypercapnia Status: Acute Assessment and Plan: * presumably due to #3 and #4 * continue ventilatory support * wean as able (3) COVID-19: Code(s): U07.1 - COVID-19 Status: Acute Assessment and Plan: * positive testing * continue supportive therapy (4) Pneumonia: Qualifiers: Laterality: bilateral Lung location: unspecified part of lung Pneumonia type: due to unspecified organism Qualified Code(s): J18.9 - Pneumonia, unspecified organism Code(s): J18.9 - Pneumonia, unspecified organism Status: Acute Assessment and Plan: * suspected related to # 2 and bacterial infection * follow culture data * on antibiotics (5) Hypertension: Qualifiers: Hypertension type: essential hypertension Qualified Code(s): I10 - Essential (primary) hypertension Code(s): I10 - Essential (primary) hypertension Status: Chronic Assessment and Plan: * well controlled at this time * follow trend of hemodynamics (6) DM2 (diabetes mellitus, type 2): Qualifiers: Chronic kidney disease stage: on chronic dialysis Diabetes mellitus complication detail: with chronic kidney disease Diabetes mellitus complication status: with kidney complications Diabetes mellitus [facility] insulin use: with contract admin use Qualified Code(s): E11.22 - Type 2 diabetes mellitus with diabetic chronic kidney disease; N18.6 - End stage renal disease; Z79.4 - induction coordination engineer (current) use of insulin; Z99.2 - Dependence on renal dialysis Code(s): E11.9 - Type 2 diabetes mellitus without complications Status: Acute Assessment and Plan: * follow accuchecks * on SSI and Lantus Discussed case with Dr. Simmons Will continue to follow Subjective Date/time seen: 05/16/20 11:10 Remains on full ventilator support along with sedation; marginal BPs in the last 24 hours requiring institution of low dose levophed to maintain MAP; due for dialysis later today. Exam Narrative: Exam Narrative: General: Elderly AA female in NAD (intubated/sedated) Heart: normal S1 and S2; no rub Lungs: coarse breath sounds with crackles at the bases Abdomen: soft, nontender, nondistended, positive bowel sounds Extremities: no cyanosis or clubbing; trace edema Skin: no rash or nodules Objective Data Vital Signs Vital Signs: Vital Signs Temp Pulse Resp BP Pulse Ox 12/20/19 10:24 78 16 99/61 L 100 12/20/19 10:00 78 12/20/19 09:02 80 23 H 129/59 L 99 12/20/19 08:14 79 97 12/20/19 08:00 37.8 C H 79 18 104/47 L 97 12/20/19 06:00 37.6 C H 78 18 112/49 L 96 12/20/19 04:52 77 96 12/20/19 04:00 78 18 116/50 L 97 12/20/19 02:20 79 98
--- NOTE | 2019-12-20 11:10 | PM.PNNEP ---
Progress Note: A&P Assessment and Plan (1) End stage renal disease: Code(s): N18.6 - End stage renal disease Status: Chronic Assessment and Plan: HD today and continue T/T/S schedule for now follow electrolytes, volume status, and clearance fluid removal has been difficult recently -- suspect relatively euvolemic at this time so no plan for aggressive ultrafiltration with HD today (2) Acute respiratory failure: Qualifiers: Respiratory failure complication: hypoxia Qualified Code(s): J96.01 - Acute respiratory failure with hypoxia Code(s): J96.00 - Acute respiratory failure, unspecified whether with hypoxia or hypercapnia Status: Acute Assessment and Plan: presumably due to #3 and #4 continue ventilatory support wean as able (3) COVID-19: Code(s): U07.1 - COVID-19 Status: Acute Assessment and Plan: positive testing continue supportive therapy (4) Pneumonia: Qualifiers: Laterality: bilateral Lung location: unspecified part of lung Pneumonia type: due to unspecified organism Qualified Code(s): J18.9 - Pneumonia, unspecified organism Code(s): J18.9 - Pneumonia, unspecified organism Status: Acute Assessment and Plan: suspected related to # 2 and bacterial infection follow culture data on antibiotics (5) Hypertension: Qualifiers: Hypertension type: essential hypertension Qualified Code(s): I10 - Essential (primary) hypertension Code(s): I10 - Essential (primary) hypertension Status: Chronic Assessment and Plan: well controlled at this time follow trend of hemodynamics (6) DM2 (diabetes mellitus, type 2): Qualifiers: Chronic kidney disease stage: on chronic dialysis Diabetes mellitus complication detail: with chronic kidney disease Diabetes mellitus complication status: with kidney complications Diabetes mellitus long term care social worker insulin use: with shelter use Qualified Code(s): E11.22 - Type 2 diabetes mellitus with diabetic chronic kidney disease; N18.6 - End stage renal disease; Z79.4 - long term care pharmacist (current) use of insulin; Z99.2 - Dependence on renal dialysis Code(s): E11.9 - Type 2 diabetes mellitus without complications Status: Acute Assessment and Plan: follow accuchecks on SSI and Lantus Discussed case with Dr. Simmons Will continue to follow Subjective Date/time seen: 12/20/19 11:10 Remains on full ventilator support along with sedation; marginal BPs in the last 24 hours requiring institution of low dose levophed to maintain MAP; due for dialysis later today. Exam Narrative: Exam Narrative: General: Elderly AA female in NAD (intubated/sedated) Heart: normal S1 and S2; no rub Lungs: coarse breath sounds with crackles at the bases Abdomen: soft, nontender, nondistended, positive bowel sounds Extremities: no cyanosis or clubbing; trace edema Skin: no rash or nodules Objective Data Vital Signs Vital Signs: Vital Signs Temp Pulse Resp BP Pulse Ox 12/20/19 10:24 78 16 99/61 L 100 12/20/19 10:00 78 12/20/19 09:02 80 23 H 129/59 L 99 12/20/19 08:14 79 97 12/20/19 08:00 37.8 C H 79 18 104/47 L 97 12/20/19 06:00 37.6 C H 78 18 112/49 L 96 12/20/19 04:52 77 96 12/20/19 04:00 78 18 116/50 L 97 12/20/19 02:20 79 98 12/20/19 02:00 78 18 110/49 L 96 12/20/19 00:00 37.6 C 77 18 112/44 L 96 12/19/19 23:54 77 95 12/19/19 22:19 37.2 C 12/19/19 22:00 81 18 85/42 L 97 12/19/19 21:19 38.8 C H 12/19/19 21:00 38.8 C H 12/19/19 20:39 84 97 12/19/19 20:00 85 18 105/47 L 99 12/19/19 18:00 85 18 110/47 L 99 12/19/19 17:36 88 94 12/19/19 16:00 38.1 C H 84 19 116/69 96 12/19/19 14:10 86 94 12/19/19 14:00 85 20 114/50 L 93 12/19/19 12:14 82 98 12/19/19 12:00 37.9 C H 80 20 121/51 L 98
[2019-12-20 12:29] LABS: Glucose Point of Care 79 (65-105)
--- NOTE | 2019-12-20 16:13 | PM.IMPN ---
Progress Note: A&P Assessment and Plan (1) Acute respiratory failure: Qualifiers: Respiratory failure complication: hypoxia Qualified Code(s): J96.01 - Acute respiratory failure with hypoxia Code(s): J96.00 - Acute respiratory failure, unspecified whether with hypoxia or hypercapnia Status: Acute Assessment and Plan: Patient on HFNC at 15L and NRB but condition worsened requiring mechanical ventilation 12/18. She currently intubated and sedated. CXR reviewed showing stable diffuse lung disease. Continue antibiotics. Continue supportive care. Appreciate labor crew supervisor input. (2) COVID-19: Code(s): U07.1 - COVID-19 Status: Acute Assessment and Plan: SARS-CoV-2 RNA positive. Inflammatory markers increasing with LDH better at 1274 but CRP up to 32.8. CXR showing persistent diffuse multifocal disease c/w COVID-19. Still with fevers to 102 last night. Will continue to follow CXR findings and inflammatory markers. Continue supportive care. (3) Pneumonia: Qualifiers: Laterality: bilateral Lung location: unspecified part of lung Pneumonia type: due to unspecified organism Qualified Code(s): J18.9 - Pneumonia, unspecified organism Code(s): J18.9 - Pneumonia, unspecified organism Status: Acute Assessment and Plan: CXR findings as mentioned above. Can not rule out PNA. BCx NGTD. Continue Rocephin and Azithromycin. Continue Albuterol HFA. (4) Elevated troponin: Code(s): R79.89 - Other specified abnormal findings of blood chemistry Status: Acute Assessment and Plan: Troponin 0.23 on admission but trending downward. EKG showing no acute changes. Suspect elevated troponin related to COVID-19 and/or from the mild rhabdomyolysis. Echo showing EF 65% and Grade 1 diastolic dysfunction but no obvious wall motion abnormalities. Continue telemetry. (5) End stage renal disease on dialysis: Code(s): N18.6 - End stage renal disease; Z99.2 - Dependence on renal dialysis Status: Chronic Assessment and Plan: Patient on terminal press operator HD on . Had HD 12/15 (DUF) and HD again 12/16 with 3L removed. HD 12/17 but no fluid removed. Nephrology has been consulted and appreciate their input. Continue Renvela. Continue hemodialysis to maintain good fluid status. Patient currently undergoing hemodialysis today with no plans for fluid removal. (6) Hypertension: Qualifiers: Hypertension type: essential hypertension Qualified Code(s): I10 - Essential (primary) hypertension Code(s): I10 - Essential (primary) hypertension Status: Chronic Assessment and Plan: Blood pressure reviewed on 12/20/2019. Blood pressure remains well controlled. Amlodipine, Coreg, hydralazine and Imdur have been placed on hold. Continue to monitor. (7) DM2 (diabetes mellitus, type 2): Qualifiers: Chronic kidney disease stage: on chronic dialysis Diabetes mellitus complication detail: with chronic kidney disease Diabetes mellitus complication status: with kidney complications Diabetes mellitus terminal press operator insulin use: with care home use Qualified Code(s): E11.22 - Type 2 diabetes mellitus with diabetic chronic kidney disease; N18.6 - End stage renal disease; Z79.4 - jail (current) use of insulin; Z99.2 - Dependence on renal dialysis Code(s): E11.9 - Type 2 diabetes mellitus without complications Status: Acute Assessment and Plan: A1c 6.8. Glucose reviewed on 12/20/2019. Glucose mostly well controlled. Lantus placed on hold. Continue sliding scale protocol. (8) Hyperlipidemia: Qualifiers: Hyperlipidemia type: unspecified Qualified Code(s): E78.5 - Hyperlipidemia, unspecified Code(s): E78.5 - Hyperlipidemia, unspecified Status: Chronic Assessment and Plan: AST better at 115. Total CK also improving. Continue to hold atorvastatin. C
[2019-12-20] MEDS: NOREPINEPHRINE 8 MG/D5W 250 ML 8 MG/250 ML BAG 9.4 MG IV CONT (17:52)
[2019-12-20 18:20] LABS: Glucose Point of Care 119 (65-105)
[2019-12-21] VITALS (25 sets, daily range): BP systolic 95–128; BP diastolic 41–50; PULSE 82–92; RESP 16–25; TEMP 37.4–38.2; O2SAT 88–100
[2019-12-21 00:14] LABS: Glucose Point of Care 132 (65-105)
[2019-12-21 04:53] LABS: Alveolar/Arterial O2 Gradient 401.2 mmHg; Base Excess ABG 0.1 mEq/l (+/-2.0); Carboxyhemoglobin 0.3 % THb (0-2.0); Fractional Inspired Oxygen 70 %; HCO3 ABG 24.1 mEq/l (22.0-26.0); Methemoglobin ABG 0.5 %THb (0-1.5); Oxygen Content ABG 12.2 %vol (16.0-22.0); Oxygen Saturation ABG 91.4 % (95.0-100.0); Oxyhemoglobin 88.5 % THb (90.0-100.0); PCO2 ABG 36.6 mmHg (35.0-45.0); PO2 ABG 58.6 mmHg (80.0-100.0); PO2 FiO2 Ratio Arterial Blood 0.84 %; Reduced Hemoglobin 10.7 %THb (0-5.0); Total Hemoglobin 9.8 g/dL (12.0-18.0); pH ABG 7.437 (7.350-7.450)
[2019-12-21 04:54] LABS: Arterial Blood Gas Ventilator rate 16 /MIN; Device VENTILATOR; Modified Allen's Test Pass; Site Drawn LEFT RADIAL
[2019-12-21 04:55] LABS: Arterial Blood Gas PEEP 10 cmH2O; Arterial Blood Gas Tidal Volume 400 ml; Arterial Blood Gas Vent Mode CMV
[2019-12-21] MEDS: HEPARIN SODIUM 5,000 UNITS/ML VIAL 5000 UNITS SUB-Q ×3 (05:21→21:23)
[2019-12-21 05:33] LABS: Basophils Percent Auto 0.2 % (0.2-1.2); Eosinophils Absolute Auto 0.2 K/mm3 (0-0.3); Eosinophils Percent Auto 1.1 % (0-4.4); Hemoglobin 8.4 g/dL (12.0-15.0); Immature Granulocyte Absolute 0.38 K/mm3 (0.00-0.031); Immature Granulocyte Percent A 2.7 % (0-0.5); Lymphocytes Absolute Auto 3.75 K/mm3 (0.9-3.2); Lymphocytes Percent Auto 26.3 % (18.3-44.2); Mean Corpuscular HGB Conc 31.1 g/dl (32-36); Mean Corpuscular Hemoglobin 28.7 pg (26-34); Mean Corpuscular Volume 92.2 fl (80-100); Monocytes Absolute Auto 0.6 K/mm3 (0.1-0.6); Monocytes Percent Auto 4.2 % (2.6-8.5); Neutrophils Absolute Auto 9.4 K/mm3 (1.3-6.7); Neutrophils Percent Auto 65.5 % (45.5-73.1); Platelet Count Result 199 k/mm3 (150-375); Red Blood Count 2.93 M/mm3 (4.2-5.4); Red Cell Distribution Width 14.6 % (11.5-14.5); White Blood Count 14.3 K/mm3 (4.5-10.0)
[2019-12-21 07:20] LABS: Alanine Aminotransferase 11 U/L (4-35); Albumin Level 2.8 g/dL (3.5-5.1); Alkaline Phosphatase 154 U/L (38-126); Aspartate Amino Transferase 109 U/L (14-36); Bilirubin,Total 0.9 mg/dL (0.2-1.3); Blood Urea Nitrogen 22 mg/dL (7-17); CRP 39.6 mg/dL (<1.0); Calcium 8.4 mg/dL (8.4-10.2); Carbon Dioxide 29 mmol/L (22-30); Chloride 101 mmol/L (98-107); Estimated CRCL calculation 12 ml/min; Estimated Glomerular Filt Rate 14; Glucose 166 mg/dL (65-105); Lactate Dehydrogenase 1205 U/L (313-618); Phosphorus 2.5 mg/dL (2.5-4.5); Potassium 3.8 mmol/L (3.4-5.0); Sodium 135 mmol/L (137-145)
[2019-12-21] MEDS: SEVELAMER CARBONATE 800 MG TABLET FEED TUBE ×3 (07:56→16:46)
[2019-12-21] MEDS: BRIMONIDINE TARTRATE 0.2% OP SOLN 5 ML BTL 1 DROP EACH EYE ×2 (07:57→16:46)
[2019-12-21] MEDS: TIMOLOL MALEATE 0.5% OP SOLN 5 ML BTL 1 DROP EACH EYE ×2 (07:57→16:46)
[2019-12-21] MEDS: CLOPIDOGREL BISULFATE 75 MG TABLET FEED TUBE (07:57)
--- NOTE | 2019-12-21 09:35 | PM.IMPN ---
Progress Note: A&P Assessment and Plan (1) Acute respiratory failure: Qualifiers: Respiratory failure complication: hypoxia Qualified Code(s): J96.01 - Acute respiratory failure with hypoxia Code(s): J96.00 - Acute respiratory failure, unspecified whether with hypoxia or hypercapnia Status: Acute Assessment and Plan: Patient on HFNC at 15L and NRB but condition worsened requiring mechanical ventilation on 12/18. She currently intubated and sedated. CXR reviewed showing stable diffuse lung disease. Continue antibiotics. Continue supportive care. Appreciate neurology tech input. (2) Shock: Code(s): R57.9 - Shock, unspecified Status: Acute Assessment and Plan: Patient's blood pressure stable on Levophed 5mcg/min. Wean Levophed as blood pressure tolerates. (3) COVID-19: Code(s): U07.1 - COVID-19 Status: Acute Assessment and Plan: SARS-CoV-2 RNA positive. Inflammatory markers increasing with LDH better at 1205 but CRP up to 39.6. CXR showing persistent diffuse multifocal disease c/w COVID-19. Still with low-grade fevers last night. Will continue to follow CXR findings and inflammatory markers. Continue supportive care. (4) Pneumonia: Qualifiers: Laterality: bilateral Lung location: unspecified part of lung Pneumonia type: due to unspecified organism Qualified Code(s): J18.9 - Pneumonia, unspecified organism Code(s): J18.9 - Pneumonia, unspecified organism Status: Acute Assessment and Plan: CXR findings as mentioned above. Can not rule out PNA. BCx NGTD. Continue Rocephin and Azithromycin (Day 7). Continue Albuterol HFA. (5) Elevated troponin: Code(s): R79.89 - Other specified abnormal findings of blood chemistry Status: Acute Assessment and Plan: Troponin 0.23 on admission but trending downward. EKG showing no acute changes. Suspect elevated troponin related to COVID-19 and/or from the mild rhabdomyolysis. Echo showing EF 65% and Grade 1 diastolic dysfunction but no obvious wall motion abnormalities. Continue telemetry. (6) End stage renal disease on dialysis: Code(s): N18.6 - End stage renal disease; Z99.2 - Dependence on renal dialysis Status: Chronic Assessment and Plan: Patient on care home HD on . Had HD 12/15 (DUF) and HD again 12/16 with 3L removed. HD 12/17 and 12/19 (DUF). Nephrology has been consulted and appreciate their input. Continue Renvela. Continue hemodialysis to maintain good fluid status. (7) Hypertension: Qualifiers: Hypertension type: essential hypertension Qualified Code(s): I10 - Essential (primary) hypertension Code(s): I10 - Essential (primary) hypertension Status: Chronic Assessment and Plan: Blood pressure reviewed on 12/21/2019. Blood pressure remains well controlled on Levophed. Amlodipine, Coreg, hydralazine and Imdur have been placed on hold. Continue to monitor. (8) DM2 (diabetes mellitus, type 2): Qualifiers: Diabetes mellitus intermodal dispatcher insulin use: with care home use Diabetes mellitus complication status: with kidney complications Diabetes mellitus complication detail: with chronic kidney disease Chronic kidney disease stage: on chronic dialysis Qualified Code(s): E11.22 - Type 2 diabetes mellitus with diabetic chronic kidney disease; N18.6 - End stage renal disease; Z79.4 - terminal gauger (current) use of insulin; Z99.2 - Dependence on renal dialysis Code(s): E11.9 - Type 2 diabetes mellitus without complications Status: Acute Assessment and Plan: A1c 6.8. Glucose reviewed on 12/21/2019. Glucose well controlled. Lantus remains on hold. Continue sliding scale protocol. (9) Hyperlipidemia: Qualifiers: Hyperlipidemia type: unspecified Qualified Code(s): E78.5 - Hyperlipidemia, unspecified Code(s): E78.5 - Hyperlipidemia, unspec
--- NOTE | 2019-12-21 10:30 | WPDINTPN ---
Progress Note: A&P Assessment and Plan (1) Acute respiratory failure: Qualifiers: Respiratory failure complication: hypoxia Qualified Code(s): J96.01 - Acute respiratory failure with hypoxia Code(s): J96.00 - Acute respiratory failure, unspecified whether with hypoxia or hypercapnia Status: Acute Assessment and Plan: patient presented with shortness of breath, nonproductive cough on 12/15/2019, chest x-ray at that time showed multifocal lung disease - patient is positive for COVID-19 - on 12/18/2019: Patient with persistent hypoxia, was intubated as she was started out in was tachypneic. - On CMV mode of ventilation, peep of 10 and 70% FiO2, will increase PEEP to 12, wean FiO2 to maintain O2 sats greater than 92% - continue ceftriaxone and azithromycin - continue albuterol MDI (2) COVID-19: Code(s): U07.1 - COVID-19 Status: Acute Assessment and Plan: SARs-CoV-2 PCR positive - continue airborne, droplet, contact isolation /precautions - inflammatory markers are elevated - (3) Pneumonia: Qualifiers: Laterality: bilateral Lung location: unspecified part of lung Pneumonia type: due to unspecified organism Qualified Code(s): J18.9 - Pneumonia, unspecified organism Code(s): J18.9 - Pneumonia, unspecified organism Status: Acute Assessment and Plan: as above (4) End stage renal disease: Code(s): N18.6 - End stage renal disease Status: Chronic Assessment and Plan: end-stage renal disease on hemodialysis Tuesdays, , Saturdays - appreciate Nephrology evaluation - 3000 mL fluid removed with dialysis on 12/17/2019 - patient was dialyzed on 12/20/2019 without removal of fluid - dialysis per Nephrology (5) DM2 (diabetes mellitus, type 2): Qualifiers: Diabetes mellitus penitentiary insulin use: with penitentiary use Diabetes mellitus complication status: with kidney complications Diabetes mellitus complication detail: with chronic kidney disease Chronic kidney disease stage: on chronic dialysis Qualified Code(s): E11.22 - Type 2 diabetes mellitus with diabetic chronic kidney disease; N18.6 - End stage renal disease; Z79.4 - terminal make up operator (current) use of insulin; Z99.2 - Dependence on renal dialysis Code(s): E11.9 - Type 2 diabetes mellitus without complications Status: Acute Assessment and Plan: continue Accu-Cheks, sliding scale insulin - blood sugars much improved after starting tube feeds as patient was hypoglycemic on 12/20/2019 (6) Elevated troponin: Code(s): R79.89 - Other specified abnormal findings of blood chemistry Status: Acute Assessment and Plan: troponins were initially elevated but trended down. EKG did not show any acute ST changes. troponin elevation likely related to respiratory distress - echocardiogram has been ordered (7) Hypertension: Qualifiers: Hypertension type: essential hypertension Qualified Code(s): I10 - Essential (primary) hypertension Code(s): I10 - Essential (primary) hypertension Status: Chronic Assessment and Plan: patient with history of essential hypertension, - patient hypotensive requiring Levophed, will hold all antihypertensive (8) DVT prophylaxis: Code(s): Z29.9 - Encounter for prophylactic measures, unspecified Status: Acute Assessment and Plan: patient will require anticoagulation given COVID-19 is thrombogenic. - continue heparin 5000 units SQ q.8 hours (9) Dietary counseling and surveillance: Code(s): Z71.3 - Dietary counseling and surveillance Status: Acute Assessment and Plan: patient on Nepro tube feeds, tolerating well (10) Shock: Code(s): R57.9 - Shock, unspecified Status: Acute Assessment and Plan: septic versus hypovolemic. Patient patient could also be hypotensive due to positive pressure ventil
[2019-12-21 11:25] LABS: Glucose Point of Care 171 (65-105)
--- NOTE | 2019-12-21 11:40 | PM.PNNEP ---
Progress Note: A&P Assessment and Plan (1) End stage renal disease: Code(s): N18.6 - End stage renal disease Status: Chronic Assessment and Plan: HD yesterday and continue T/T/S schedule for now follow electrolytes, volume status, and clearance (2) Acute respiratory failure: Qualifiers: Respiratory failure complication: hypoxia Qualified Code(s): J96.01 - Acute respiratory failure with hypoxia Code(s): J96.00 - Acute respiratory failure, unspecified whether with hypoxia or hypercapnia Status: Acute Assessment and Plan: presumably due to #3 and #4 continue ventilatory support wean as able (3) COVID-19: Code(s): U07.1 - COVID-19 Status: Acute Assessment and Plan: positive testing continue supportive therapy (4) Pneumonia: Qualifiers: Laterality: bilateral Lung location: unspecified part of lung Pneumonia type: due to unspecified organism Qualified Code(s): J18.9 - Pneumonia, unspecified organism Code(s): J18.9 - Pneumonia, unspecified organism Status: Acute Assessment and Plan: suspected related to # 2 and bacterial infection follow culture data on antibiotics (5) Hypertension: Qualifiers: Hypertension type: essential hypertension Qualified Code(s): I10 - Essential (primary) hypertension Code(s): I10 - Essential (primary) hypertension Status: Chronic Assessment and Plan: well controlled at this time follow trend of hemodynamics (6) DM2 (diabetes mellitus, type 2): Qualifiers: Diabetes mellitus half-way insulin use: with half-way use Diabetes mellitus complication status: with kidney complications Diabetes mellitus complication detail: with chronic kidney disease Chronic kidney disease stage: on chronic dialysis Qualified Code(s): E11.22 - Type 2 diabetes mellitus with diabetic chronic kidney disease; N18.6 - End stage renal disease; Z79.4 - alf (current) use of insulin; Z99.2 - Dependence on renal dialysis Code(s): E11.9 - Type 2 diabetes mellitus without complications Status: Acute Assessment and Plan: follow accuchecks on SSI and Lantus Will continue to follow Subjective Date/time seen: 12/21/19 11:40 No real significant change -- remains intubated/sedated on full mechanical ventilator support with low dose levophed to maintain her MAP; no new events overnight or this AM; tolerating tube feeds at this time. Exam Narrative: Exam Narrative: General: Elderly AA female in NAD (intubated/sedated) Heart: normal S1 and S2; no rub Lungs: coarse breath sounds with crackles at the bases Abdomen: soft, nontender, nondistended, positive bowel sounds Extremities: no cyanosis or clubbing; trace edema Skin: no rash or nodules Objective Data Vital Signs Vital Signs: Vital Signs Temp Pulse Resp BP Pulse Ox 12/21/19 10:18 85 17 102/45 L 100 12/21/19 10:00 85 12/21/19 08:44 89 100 12/21/19 08:01 88 20 104/50 L 100 12/21/19 08:00 86 12/21/19 07:53 37.9 C H 87 21 H 122/45 L 100 12/21/19 06:00 86 22 H 117/49 L 88 L 12/21/19 04:39 84 93 12/21/19 04:00 83 17 113/43 L 97 12/21/19 02:40 87 94 12/21/19 02:00 86 22 H 118/43 L 92 12/21/19 00:00 37.6 C H 82 17 115/44 L 97 12/20/19 23:32 84 96 12/20/19 22:00 86 22 H 116/53 L 94 12/20/19 20:48 81 93 12/20/19 20:00 37.9 C H 82 19 105/47 L 94 12/20/19 18:00 80 18 115/48 L 94 12/20/19 16:42 71 92 12/20/19 16:30 73 23 H 126/64 92 12/20/19 16:16 37.0 C 77 27 H 120/61 89 L 12/20/19 16:15 72 120/61 12/20/19 16:00 77 115/81 12/20/19 15:45 75 122/52 L 12/20/19 15:30 75 124/70 12/20/19 15:15 71 123/44 L 12/20/19 15:00 74 121/50 L 12/20/19 14:45 72 132/45 L 12/20/19 14:30 73 88/45 L 12/20/19 14:15 73 96/46 L 0
[2019-12-21] MEDS: INSULIN ASPART (*BKC) 100 UNITS/ML SUB-Q ×2 (16:47→23:16)
[2019-12-21] MEDS: NOREPINEPHRINE 8 MG/D5W 250 ML 8 MG/250 ML BAG 16.9 MG IV CONT (16:56)
[2019-12-21 17:00] LABS: Glucose Point of Care 242 (65-105)
[2019-12-21 23:21] LABS: Glucose Point of Care 217 (65-105)
[2019-12-22] VITALS (25 sets, daily range): BP systolic 97–141; BP diastolic 27–61; PULSE 75–89; RESP 16–27; TEMP 36.3–38; O2SAT 90–100
[2019-12-22 04:22] LABS: Alveolar/Arterial O2 Gradient 347.5 mmHg; Base Excess ABG -0.1 mEq/l (+/-2.0); Carboxyhemoglobin 0.3 % THb (0-2.0); Fractional Inspired Oxygen 70 %; HCO3 ABG 24.6 mEq/l (22.0-26.0); Methemoglobin ABG 0.7 %THb (0-1.5); Oxygen Content ABG 12.7 %vol (16.0-22.0); Oxygen Saturation ABG 97.9 % (95.0-100.0); Oxyhemoglobin 96.4 % THb (90.0-100.0); PCO2 ABG 40.7 mmHg (35.0-45.0); PO2 ABG 107.9 mmHg (80.0-100.0); PO2 FiO2 Ratio Arterial Blood 1.54 %; Reduced Hemoglobin 2.6 %THb (0-5.0); Total Hemoglobin 9.2 g/dL (12.0-18.0)
[2019-12-22 04:23] LABS: Arterial Blood Gas Vent Mode CMV; Arterial Blood Gas Ventilator rate 16 /MIN; Device VENTILATOR; Modified Allen's Test Pass; Site Drawn LEFT RADIAL
[2019-12-22 04:24] LABS: Arterial Blood Gas PEEP 12 cmH2O; Arterial Blood Gas Tidal Volume 400 ml
[2019-12-22 06:09] LABS: Basophils Absolute Auto 0.1 K/mm3 (0.0-0.1); Basophils Percent Auto 0.3 % (0.2-1.2); Eosinophils Absolute Auto 0.3 K/mm3 (0-0.3); Eosinophils Percent Auto 1.7 % (0-4.4); Hematocrit 26.4 % (37.0-47.0); Hemoglobin 8.1 g/dL (12.0-15.0); Immature Granulocyte Absolute 0.63 K/mm3 (0.00-0.031); Immature Granulocyte Percent A 3.9 % (0-0.5); Lymphocytes Absolute Auto 4.83 K/mm3 (0.9-3.2); Lymphocytes Percent Auto 29.6 % (18.3-44.2); Mean Corpuscular HGB Conc 30.7 g/dl (32-36); Mean Corpuscular Hemoglobin 28.2 pg (26-34); Mean Platelet Volume 12.5 fl (7.4-10.4); Monocytes Absolute Auto 0.7 K/mm3 (0.1-0.6); Monocytes Percent Auto 4.5 % (2.6-8.5); Neutrophils Absolute Auto 9.8 K/mm3 (1.3-6.7); Nucleated Red Blood Cells Perc 0.1 % (0.0-0.2); Platelet Count Result 215 k/mm3 (150-375); Red Blood Count 2.87 M/mm3 (4.2-5.4); Red Cell Distribution Width 15.1 % (11.5-14.5); White Blood Count 16.3 K/mm3 (4.5-10.0)
[2019-12-22 06:25] LABS: Alanine Aminotransferase 10 U/L (4-35); Albumin Level 2.8 g/dL (3.5-5.1); Alkaline Phosphatase 149 U/L (38-126); Aspartate Amino Transferase 70 U/L (14-36); Bilirubin,Total 1.3 mg/dL (0.2-1.3); Blood Urea Nitrogen 39 mg/dL (7-17); Calcium 8.6 mg/dL (8.4-10.2); Carbon Dioxide 27 mmol/L (22-30); Chloride 96 mmol/L (98-107); Estimated CRCL calculation 9 ml/min; Estimated Glomerular Filt Rate 9; Glucose 251 mg/dL (65-105); Lactate Dehydrogenase 1015 U/L (313-618); Magnesium 2.1 mg/dL (1.6-2.3); Phosphorus 2.6 mg/dL (2.5-4.5); Potassium 3.9 mmol/L (3.4-5.0); Sodium 132 mmol/L (137-145)
[2019-12-22] MEDS: NOREPINEPHRINE 8 MG/D5W 250 ML 8 MG/250 ML BAG 16.9 MG IV CONT (06:45)
[2019-12-22] MEDS: INSULIN ASPART (*BKC) 100 UNITS/ML SUB-Q ×3 (06:46→17:21)
[2019-12-22] MEDS: HEPARIN SODIUM 5,000 UNITS/ML VIAL 5000 UNITS SUB-Q ×3 (06:48→20:57)
[2019-12-22] MEDS: SEVELAMER CARBONATE 800 MG TABLET FEED TUBE ×3 (08:00→16:23)
[2019-12-22] MEDS: BRIMONIDINE TARTRATE 0.2% OP SOLN 5 ML BTL 1 DROP EACH EYE ×2 (08:00→16:23)
[2019-12-22] MEDS: TIMOLOL MALEATE 0.5% OP SOLN 5 ML BTL 1 DROP EACH EYE ×2 (08:00→16:23)
[2019-12-22] MEDS: CLOPIDOGREL BISULFATE 75 MG TABLET FEED TUBE (08:00)
--- NOTE | 2019-12-22 08:09 | WPDINTPN ---
Progress Note: A&P Assessment and Plan (1) Acute respiratory failure: Qualifiers: Respiratory failure complication: hypoxia Qualified Code(s): J96.01 - Acute respiratory failure with hypoxia Code(s): J96.00 - Acute respiratory failure, unspecified whether with hypoxia or hypercapnia Status: Acute Assessment and Plan: patient presented with shortness of breath, nonproductive cough on 12/15/2019, chest x-ray at that time showed multifocal lung disease - patient is positive for COVID-19 - on 12/18/2019: Patient with persistent hypoxia, was intubated as she was started out in was tachypneic. - On CMV mode of ventilation, peep of 10 and 760% FiO2, will increase PEEP to 12, wean FiO2 to maintain O2 sats greater than 92% - continue ceftriaxone and azithromycin for total of 7 days - continue albuterol MDI (2) COVID-19: Code(s): U07.1 - COVID-19 Status: Acute Assessment and Plan: SARs-CoV-2 PCR positive - continue airborne, droplet, contact isolation /precautions - inflammatory markers are elevated, follow intermittently (3) Pneumonia: Qualifiers: Laterality: bilateral Lung location: unspecified part of lung Pneumonia type: due to unspecified organism Qualified Code(s): J18.9 - Pneumonia, unspecified organism Code(s): J18.9 - Pneumonia, unspecified organism Status: Acute Assessment and Plan: as above (4) End stage renal disease: Code(s): N18.6 - End stage renal disease Status: Chronic Assessment and Plan: end-stage renal disease on hemodialysis Tuesdays, , Saturdays - appreciate Nephrology evaluation - 3000 mL fluid removed with dialysis on 12/17/2019 - patient was dialyzed on 12/20/2019 without removal of fluid - dialysis per Nephrology (5) DM2 (diabetes mellitus, type 2): Qualifiers: 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: with skilled nursing use Diabetes mellitus complication status: with kidney complications Diabetes mellitus complication detail: with chronic kidney disease Chronic kidney disease stage: on chronic dialysis Qualified Code(s): E11.22 - Type 2 diabetes mellitus with diabetic chronic kidney disease; N18.6 - End stage renal disease; Z79.4 - residential (current) use of insulin; Z99.2 - Dependence on renal dialysis Code(s): E11.9 - Type 2 diabetes mellitus without complications Status: Acute Assessment and Plan: continue Accu-Cheks, sliding scale insulin - blood sugars much improved after starting tube feeds as patient was hypoglycemic on 12/20/2019 (6) Elevated troponin: Code(s): R79.89 - Other specified abnormal findings of blood chemistry Status: Acute Assessment and Plan: troponins were initially elevated but trended down. EKG did not show any acute ST changes. troponin elevation likely related to respiratory distress - echocardiogram has been ordered (7) Hypertension: Qualifiers: Hypertension type: essential hypertension Qualified Code(s): I10 - Essential (primary) hypertension Code(s): I10 - Essential (primary) hypertension Status: Chronic Assessment and Plan: patient with history of essential hypertension, - patient hypotensive requiring Levophed, will hold all antihypertensive (8) DVT prophylaxis: Code(s): Z29.9 - Encounter for prophylactic measures, unspecified Status: Acute Assessment and Plan: patient will require anticoagulation given COVID-19 is thrombogenic. - continue heparin 5000 units SQ q.8 hours (9) Dietary counseling and surveillance: Code(s): Z71.3 - Dietary counseling and surveillance Status: Acute Assessment and Plan: patient on Nepro tube feeds, tolerating well (10) Shock: Code(s): R57.9 - Shock, unspecified Status: Acute Assessment and Plan: septic versus hypovolemic. Patient patient could also be h
[2019-12-22 09:16] LABS: CRP 41.4 mg/dL (<1.0)
--- NOTE | 2019-12-22 10:34 | PCDIET ---
ICU Rounding Note: Patient receiving Nepro at goal of 35mL/hr with no significant residuals (40mL and below). Last recorded weight is 66.2kg which is increased. Bowel Motility: Loose stool documented 12/22/19. Labs Reviewed: Glu (251), Na (132), Alb (2.8) Meds Noted: Albumin, Proventil, Zithromax, Rocephin, Fentanyl, Novolog, Lantus, Versed, Levophed, Renvela Additional Notes: No documented skin breakdown. Following daily in ICU rounds. Assessing/reassessing every Sunday/Sunday.
[2019-12-22 10:40] LABS: Alveolar/Arterial O2 Gradient 398.5 mmHg; Base Excess ABG 0.2 mEq/l (+/-2.0); Fractional Inspired Oxygen 70 %; HCO3 ABG 25.3 mEq/l (22.0-26.0); Oxygen Content ABG 11.3 %vol (16.0-22.0); Oxygen Saturation ABG 87.7 % (95.0-100.0); Oxyhemoglobin 86.9 % THb (90.0-100.0); PCO2 ABG 43.2 mmHg (35.0-45.0); PO2 ABG 54.2 mmHg (80.0-100.0); PO2 FiO2 Ratio Arterial Blood 0.77 %; Total Hemoglobin 9.2 g/dL (12.0-18.0); pH ABG 7.386 (7.350-7.450)
[2019-12-22 10:41] LABS: Device VENTILATOR; Modified Allen's Test Pass; Site Drawn LEFT RADIAL
[2019-12-22 10:42] LABS: Arterial Blood Gas PEEP 12 cmH2O; Arterial Blood Gas Vent Mode ASSIST CONTROL; Arterial Blood Gas Ventilator rate 16 /MIN; Peak Inspiratory Pressure 0 cmH2O
[2019-12-22 10:43] LABS: Arterial Blood Gas Minute Volume 0 LPM; Arterial Blood Gas Pressure Support 0 cmH2O; Arterial Blood Gas Tidal Volume 400 ml
--- NOTE | 2019-12-22 10:59 | PM.IMPN ---
Progress Note: A&P Assessment and Plan (1) Acute respiratory failure: Qualifiers: Respiratory failure complication: hypoxia Qualified Code(s): J96.01 - Acute respiratory failure with hypoxia Code(s): J96.00 - Acute respiratory failure, unspecified whether with hypoxia or hypercapnia Status: Acute Assessment and Plan: Patient was on HFNC at 15L and NRB but condition worsened requiring mechanical ventilation on 12/18. She currently intubated and sedated. CXR reviewed showing stable diffuse lung disease. Patient with increasing FiO2 requirements. Continue supportive care. Appreciate survey data technician input. Discussed with survey data technician and Flolan being considerd. (2) Shock: Code(s): R57.9 - Shock, unspecified Status: Acute Assessment and Plan: Patient's blood pressure labile requiring higher doses of Levophed at times. Wean Levophed as blood pressure tolerates. (3) COVID-19: Code(s): U07.1 - COVID-19 Status: Acute Assessment and Plan: SARS-CoV-2 RNA positive. Inflammatory markers better with LDH at 1015. CRP continues to climb to 41.4. CXR showing persistent diffuse multifocal disease c/w COVID-19. Still with low-grade fevers last night. Will continue to follow CXR findings and inflammatory markers. Continue supportive care. (4) Pneumonia: Qualifiers: Laterality: bilateral Lung location: unspecified part of lung Pneumonia type: due to unspecified organism Qualified Code(s): J18.9 - Pneumonia, unspecified organism Code(s): J18.9 - Pneumonia, unspecified organism Status: Acute Assessment and Plan: CXR findings as mentioned above. Can not rule out PNA. BCx NGTD. Continue Rocephin and Azithromycin (Day 8). Continue Albuterol HFA. (5) Elevated troponin: Code(s): R79.89 - Other specified abnormal findings of blood chemistry Status: Acute Assessment and Plan: Troponin 0.23 on admission but trending downward. EKG showing no acute changes. Suspect elevated troponin related to COVID-19 and/or from the mild rhabdomyolysis. Echo showing EF 65% and Grade 1 diastolic dysfunction but no obvious wall motion abnormalities. Continue telemetry. (6) End stage renal disease on dialysis: Code(s): N18.6 - End stage renal disease; Z99.2 - Dependence on renal dialysis Status: Chronic Assessment and Plan: Patient on rodent exterminator HD on . Had HD 12/15 (DUF) and HD again 12/16 with 3L removed. HD 12/17 and 12/19 (DUF). Nephrology has been consulted and appreciate their input. Continue Renvela. Continue hemodialysis to maintain good fluid status. (7) Hypertension: Qualifiers: Hypertension type: essential hypertension Qualified Code(s): I10 - Essential (primary) hypertension Code(s): I10 - Essential (primary) hypertension Status: Chronic Assessment and Plan: Blood pressure reviewed on 12/22/2019. Amlodipine, Coreg, hydralazine and Imdur have been placed on hold. As above. (8) DM2 (diabetes mellitus, type 2): Qualifiers: Chronic kidney disease stage: on chronic dialysis Diabetes mellitus complication detail: with chronic kidney disease Diabetes mellitus complication status: with kidney complications Diabetes mellitus custodial insulin use: with custodial use Qualified Code(s): E11.22 - Type 2 diabetes mellitus with diabetic chronic kidney disease; N18.6 - End stage renal disease; Z79.4 - tank terminal gauger (current) use of insulin; Z99.2 - Dependence on renal dialysis Code(s): E11.9 - Type 2 diabetes mellitus without complications Status: Acute Assessment and Plan: A1c 6.8. Glucose reviewed on 12/22/2019. Glucose much higher now. Lantus resumed. Continue sliding scale protocol. (9) Hyperlipidemia: Qualifiers: Hyperlipidemia type: unspecified Qualified Code(s): E78.5 - Hyperlipidemia, unspecified Code
[2019-12-22] MEDS: ACETAMINOPHEN ELIXIR 325 MG/10.15 ML UDC 650 MG FEED TUBE (12:15)
[2019-12-22 13:34] LABS: Glucose Point of Care 240 (65-105)
[2019-12-22] MEDS: EPOPROSTENOL SODIUM 0.5 MG VIAL 1 MG INHALATION (14:55)
[2019-12-22 15:12] LABS: Alveolar/Arterial O2 Gradient 416.1 mmHg; Base Excess ABG -0.8 mEq/l (+/-2.0); Fractional Inspired Oxygen 100 %; HCO3 ABG 24.2 mEq/l (22.0-26.0); Methemoglobin ABG 0.7 %THb (0-1.5); Oxygen Saturation ABG 99.6 % (95.0-100.0); Oxyhemoglobin 98.4 % THb (90.0-100.0); PCO2 ABG 41.3 mmHg (35.0-45.0); PO2 ABG 255.6 mmHg (80.0-100.0); PO2 FiO2 Ratio Arterial Blood 2.56 %; Reduced Hemoglobin 0.9 %THb (0-5.0); Total Hemoglobin 8.9 g/dL (12.0-18.0); pH ABG 7.385 (7.350-7.450)
[2019-12-22 15:13] LABS: Arterial Blood Gas Vent Mode CMV; Arterial Blood Gas Ventilator rate 16 /MIN; Device VENTILATOR; Modified Allen's Test Pass; Site Drawn LEFT RADIAL
[2019-12-22 15:14] LABS: Arterial Blood Gas Minute Volume 0 LPM; Arterial Blood Gas PEEP 12 cmH2O; Arterial Blood Gas Tidal Volume 400 ml
--- NOTE | 2019-12-22 15:57 | WPDPROCEDUR ---
Procedures Arterial Line Arterial Line Date: 12/22/19 Arterial Line Time: 15:34 Discussed with the patient/family/POA, the placement of an arterial catheter, including its clinical necessity/indication and associated potential risks, benefits and alternatives.: Yes Patient/family/POA and/or understands and acknowledges the need to proceed with the arterial catheter insertion as an important element of the patient's clinical management.: Yes Time Out Performed: Yes Patient Position: supine Pulling Unit Operator Prep: sterile gown, sterile gloves and mask Site: left and femoral Site Prep: chlorhexidine and sterile drape Technique used: ultrasound-guided Size (Gauge): 16 Length: 12 cm Closure/Dressing: suture, antimicrobial disc and tegaderm Patient tolerated procedure: well Complications: none
--- NOTE | 2019-12-22 16:19 | PM.PNNEP ---
Progress Note: A&P Assessment and Plan (1) End stage renal disease: Code(s): N18.6 - End stage renal disease Status: Chronic Assessment and Plan: HD tomorrow and continue T/T/S schedule for now follow electrolytes, volume status, and clearance (2) Acute respiratory failure: Qualifiers: Respiratory failure complication: hypoxia Qualified Code(s): J96.01 - Acute respiratory failure with hypoxia Code(s): J96.00 - Acute respiratory failure, unspecified whether with hypoxia or hypercapnia Status: Acute Assessment and Plan: presumably due to #3 and #4 continue ventilatory support wean as able (3) COVID-19: Code(s): U07.1 - COVID-19 Status: Acute Assessment and Plan: positive testing continue supportive therapy (4) Pneumonia: Qualifiers: Laterality: bilateral Lung location: unspecified part of lung Pneumonia type: due to unspecified organism Qualified Code(s): J18.9 - Pneumonia, unspecified organism Code(s): J18.9 - Pneumonia, unspecified organism Status: Acute Assessment and Plan: suspected related to # 2 and bacterial infection follow culture data on antibiotics (5) Hypertension: Qualifiers: Hypertension type: essential hypertension Qualified Code(s): I10 - Essential (primary) hypertension Code(s): I10 - Essential (primary) hypertension Status: Chronic Assessment and Plan: not an issues -- currently hypotensive requiring levophed follow trend of hemodynamics (6) DM2 (diabetes mellitus, type 2): Qualifiers: Chronic kidney disease stage: on chronic dialysis Diabetes mellitus complication detail: with chronic kidney disease Diabetes mellitus complication status: with kidney complications 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 insulin 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 Exam Narrative: Exam Narrative: General: Elderly AA female in NAD (intubated/sedated) Heart: normal S1 and S2; no rub Lungs: coarse breath sounds with crackles at the bases Abdomen: soft, nontender, nondistended, positive bowel sounds Extremities: no cyanosis or clubbing; trace edema Skin: warm and dry Objective Data Vital Signs Vital Signs: Vital Signs Temp Pulse Resp BP Pulse Ox 12/22/19 16:00 36.3 C L 78 16 107/44 L 99 12/22/19 15:00 85 16 92 12/22/19 14:22 87 91 12/22/19 14:00 86 18 131/49 L 90 12/22/19 13:28 37.3 C 12/22/19 12:15 38.0 C H 12/22/19 12:00 38.0 C H 84 19 108/42 L 93 12/22/19 11:28 86 93 12/22/19 10:01 84 27 H 113/61 92 12/22/19 10:00 88 12/22/19 09:03 84 90 12/22/19 08:00 37.2 C 84 23 H 97/50 L 92 12/22/19 06:00 37.3 C 82 22 H 102/45 L 96 12/22/19 04:50 89 100 12/22/19 04:00 88 21 H 134/44 L 100 12/22/19 02:00 84 23 H 141/51 H 100 12/22/19 01:53 82 97 12/22/19 00:00 37.9 C H 84 16 129/49 L 100 12/21/19 23:00 83 100 12/21/19 22:00 87 16 128/41 L 100 12/21/19 20:24 88 100 12/21/19 20:00 37.4 C 87 22 H 125/48 L 99 12/21/19 18:19 37.9 C H 84 25 H 114/43 L 91 12/21/19 18:00 84 Intake/Output Intake/Output: Intake & Output 12/19/19 12/20/19 12/21/19 12/22/19 23:59 23:59 23:59 23:59 Intake Total 400 1124 1605 986 Output Total 400 300
[2019-12-22] MEDS: hetaSTARCH 6%/NACL 500 ML 999 ML IV CONT (16:30)
[2019-12-22] MEDS: NOREPINEPHRINE 8 MG/D5W 250 ML 8 MG/250 ML BAG 33.8 MG IV CONT (17:58)
[2019-12-22 18:59] LABS: Glucose Point of Care 313 (65-105)
[2019-12-22] MEDS: INSULIN GLARGINE (*BKC) 100 UNITS/ML SUB-Q (20:56)
[2019-12-23] VITALS (12 sets, daily range): BP systolic 122–152; BP diastolic 29–38; PULSE 74–77; RESP 16–19; TEMP 36.1–36.5; O2SAT 90–99
[2019-12-23] MEDS: INSULIN ASPART (*BKC) 100 UNITS/ML SUB-Q ×3 (00:34→12:06)
[2019-12-23] MEDS: NOREPINEPHRINE 8 MG/D5W 250 ML 8 MG/250 ML BAG 35.6 MG IV CONT ×2 (01:38→09:04)
[2019-12-23 04:57] LABS: Alveolar/Arterial O2 Gradient 297.2 mmHg; Base Excess ABG -2.8 mEq/l (+/-2.0); Fractional Inspired Oxygen 60 %; HCO3 ABG 22.8 mEq/l (22.0-26.0); Oxygen Content ABG 11.3 %vol (16.0-22.0); Oxygen Saturation ABG 95.5 % (95.0-100.0); Oxyhemoglobin 94.3 % THb (90.0-100.0); PCO2 ABG 43.7 mmHg (35.0-45.0); PO2 ABG 82.5 mmHg (80.0-100.0); PO2 FiO2 Ratio Arterial Blood 1.38 %; Total Hemoglobin 8.4 g/dL (12.0-18.0); pH ABG 7.336 (7.350-7.450)
[2019-12-23 04:58] LABS: Device VENTILATOR; Site Drawn ARTLINE
[2019-12-23 04:59] LABS: Arterial Blood Gas PEEP 12 cmH2O; Arterial Blood Gas Tidal Volume 400 ml; Arterial Blood Gas Vent Mode CMV; Arterial Blood Gas Ventilator rate 16 /MIN
[2019-12-23 05:37] LABS: Glucose Point of Care 294 (65-105)
[2019-12-23] MEDS: HEPARIN SODIUM 5,000 UNITS/ML VIAL 5000 UNITS SUB-Q (06:16)
[2019-12-23 06:35] LABS: Hematocrit 25.1 % (37.0-47.0); Hemoglobin 7.9 g/dL (12.0-15.0); Mean Corpuscular HGB Conc 31.5 g/dl (32-36); Mean Corpuscular Hemoglobin 28.8 pg (26-34); Mean Corpuscular Volume 91.6 fl (80-100); Mean Platelet Volume 11.9 fl (7.4-10.4); Platelet Count Result 209 k/mm3 (150-375); Red Blood Count 2.74 M/mm3 (4.2-5.4); Red Cell Distribution Width 15.8 % (11.5-14.5); White Blood Count 15.7 K/mm3 (4.5-10.0)
[2019-12-23 06:38] LABS: Glucose Point of Care 324 (65-105)
[2019-12-23 06:53] LABS: Alanine Aminotransferase 9 U/L (4-35); Albumin Level 2.5 g/dL (3.5-5.1); Alkaline Phosphatase 133 U/L (38-126); Aspartate Amino Transferase 45 U/L (14-36); Bilirubin,Total 1.6 mg/dL (0.2-1.3); Blood Urea Nitrogen 53 mg/dL (7-17); Calcium 8.7 mg/dL (8.4-10.2); Carbon Dioxide 25 mmol/L (22-30); Chloride 93 mmol/L (98-107); Estimated CRCL calculation 7 ml/min; Estimated Glomerular Filt Rate 8; Glucose 323 mg/dL (65-105); Potassium 3.6 mmol/L (3.4-5.0); Sodium 127 mmol/L (137-145)
[2019-12-23] MEDS: TIMOLOL MALEATE 0.5% OP SOLN 5 ML BTL 1 DROP EACH EYE (07:46)
[2019-12-23] MEDS: BRIMONIDINE TARTRATE 0.2% OP SOLN 5 ML BTL 1 DROP EACH EYE (07:46)
[2019-12-23] MEDS: SEVELAMER CARBONATE 800 MG TABLET FEED TUBE ×2 (07:46→12:07)
[2019-12-23] MEDS: CLOPIDOGREL BISULFATE 75 MG TABLET FEED TUBE (07:47)
--- NOTE | 2019-12-23 08:00 | WPDINTPN ---
Progress Note: A&P Assessment and Plan (1) Acute respiratory failure: Qualifiers: Respiratory failure complication: hypoxia Qualified Code(s): J96.01 - Acute respiratory failure with hypoxia Code(s): J96.00 - Acute respiratory failure, unspecified whether with hypoxia or hypercapnia Status: Acute Assessment and Plan: secondary to COVID-19 pneumonia and ARDS SARS-CoV-2 PCR positive Patient is in Airborne, Droplet and Contact Isolation Continue antiobiotics for empiric bacterial coverage- patient is on Rocephin and azithromycin Follow Troponin, LDH, D-Dimer, CRP, Procal, Ferritin periodically - intubated on 12/18 - On CMV mode of ventilation, peep of 12 and 60% FiO2 - continue ceftriaxone and azithromycin for total of 7 days - continue albuterol MDI (2) COVID-19: Code(s): U07.1 - COVID-19 Status: Acute Assessment and Plan: SARs-CoV-2 PCR positive - continue airborne, droplet, contact isolation /precautions - inflammatory markers are elevated, follow intermittently (3) Pneumonia: Qualifiers: Laterality: bilateral Lung location: unspecified part of lung Pneumonia type: due to unspecified organism Qualified Code(s): J18.9 - Pneumonia, unspecified organism Code(s): J18.9 - Pneumonia, unspecified organism Status: Acute Assessment and Plan: as above (4) Septic shock: Code(s): A41.9 - Sepsis, unspecified organism; R65.21 - Severe sepsis with septic shock Status: Acute Assessment and Plan: - continue Levophed, and maintain mean arterial pressures greater than 60 mmHg - continue antibiotics as above - blood cultures from 12/19/2019 are negative x2 - add vasopressin and stress dose steroids - hold hemodialysis today (5) End stage renal disease: Code(s): N18.6 - End stage renal disease Status: Chronic Assessment and Plan: end-stage renal disease on hemodialysis Tuesdays, , Saturdays - patient's last session was on Sunday - 3000 mL fluid removed with dialysis on 12/17/2019 - patient was dialyzed on 12/20/2019 without removal of fluid - labs reviewed and discussed with design engineering manager - in light of high vasopressor requirement and acceptable electrolyte and acidosis level, will hold hemodialysis today and re-evaluate in 24 hours - if the shock persists, patient may need CRRT and in that case will need to be transferred to a tertiary facility (6) DM2 (diabetes mellitus, type 2): Qualifiers: Diabetes mellitus snf insulin use: with terminal carman use Diabetes mellitus complication status: with kidney complications Diabetes mellitus complication detail: with chronic kidney disease Chronic kidney disease stage: on chronic dialysis Qualified Code(s): E11.22 - Type 2 diabetes mellitus with diabetic chronic kidney disease; N18.6 - End stage renal disease; Z79.4 - assisted (current) use of insulin; Z99.2 - Dependence on renal dialysis Code(s): E11.9 - Type 2 diabetes mellitus without complications Status: Acute Assessment and Plan: uncontrolled - increase Lantus tonight and will give additional 1 time dose now - continue Accu-Cheks, sliding scale insulin - (7) Elevated troponin: Code(s): R79.89 - Other specified abnormal findings of blood chemistry Status: Acute Assessment and Plan: troponins were initially elevated but trended down. EKG did not show any acute ST changes. troponin elevation likely related to respiratory distress ECHO 12/17 Summary 1. Left ventricular chamber dimension is normal. 2. Ventricular septum is sigmoid shaped. 3. Left ventricular systolic function is normal, estimated at 65-70%. 4. There is moderately increased left ventricular wall thickness. 5. The left ventricular diastolic function is grade I diastolic dysfunction. 6. Global longitudinal strain is mildly abnormal at -15.9%. 7. Left a
--- NOTE | 2019-12-23 09:16 | PM.IMPN ---
Progress Note: A&P Assessment and Plan (1) Acute respiratory failure: Qualifiers: Respiratory failure complication: hypoxia Qualified Code(s): J96.01 - Acute respiratory failure with hypoxia Code(s): J96.00 - Acute respiratory failure, unspecified whether with hypoxia or hypercapnia Status: Acute Assessment and Plan: Initially on high-flow oxygen but requiring intubation on 12/19/2019. Patient remains sedated on ventilator. Management per clothing presser. On IV ceftriaxone and azithromycin. Albuterol MDI. With continued worsening, clothing presser was able to speak with physician at [facility]. Transfer arranged to tertiary center. (2) Shock: Code(s): R57.9 - Shock, unspecified Status: Acute Assessment and Plan: Telemetry reviewed on 12/23/2019 with sinus rhythm. Blood pressure reviewed on 12/23/2019 with patient still requiring Levophed. Blood cultures Remain negative. Remains on IV antibiotics as noted. (3) COVID-19: Code(s): U07.1 - COVID-19 Status: Acute Assessment and Plan: SARS-CoV-2 RNA positive. Acute phase reactants elevated with CRP 41.4 on 12/22/2019. Intubated as noted above. Continue to monitor. (4) Pneumonia: Qualifiers: Laterality: bilateral Lung location: unspecified part of lung Pneumonia type: due to unspecified organism Qualified Code(s): J18.9 - Pneumonia, unspecified organism Code(s): J18.9 - Pneumonia, unspecified organism Status: Acute Assessment and Plan: Chest x-ray with continued diffuse bilateral lung disease. Result of COVID-19 infection. Does remain on IV antibiotics due to worsening condition. Remains intubated. Albuterol MDI. (5) Elevated troponin: Code(s): R79.89 - Other specified abnormal findings of blood chemistry Status: Acute Assessment and Plan: Troponin 0.23 on admission but trending downward. EKG showing no acute changes. Suspect elevated troponin related to COVID-19 and/or from the mild rhabdomyolysis. Echocardiogram with EF 65% and Grade 1 diastolic dysfunction but no obvious wall motion abnormalities. Telemetry as noted above. (6) End stage renal disease on dialysis: Code(s): N18.6 - End stage renal disease; Z99.2 - Dependence on renal dialysis Status: Chronic Assessment and Plan: Appreciate help from Nephrology. Concern patient will need continuous renal replacement therapy in light of remainder of status. No hemodialysis this morning per Nephrology. Now plan for transfer. (7) Hypertension: Qualifiers: Hypertension type: essential hypertension Qualified Code(s): I10 - Essential (primary) hypertension Code(s): I10 - Essential (primary) hypertension Status: Chronic Assessment and Plan: Blood pressure reviewed on 12/23/2019. Antihypertensives on hold with need for pressor agents. Will continue to monitor. 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 Glucose reviewed on 12/23/2019. Lantus in place. Sliding scale insulin as needed. Continue to monitor. (9) Hyperlipidemia: Qualifiers: Hyperlipidemia type: unspecified Qualified Code(s): E78.5 - Hyperlipidemia, unspecified Code(s): E78.5 - Hyperlipidemia, unspecified Status: Chronic Assessment and Plan: Atorvastatin remains on
[2019-12-23] MEDS: PANTOPRAZOLE SODIUM IV 40 MG VIAL IV PUSH (10:30)
[2019-12-23] MEDS: INSULIN GLARGINE (*BKC) 100 UNITS/ML 10 UNITS SUB-Q (10:31)
[2019-12-23] MEDS: VASOPRESSIN INJ 100 UNITS in DEXTROSE 5% 95 ML IV CONT (10:32)
--- NOTE | 2019-12-23 10:55 | PCDIET ---
Nutrition Follow-Up Complete: Nutrition Diagnosis: Inadequate oral intake related to oral intubation as evidenced by NPO status. Nutrition Goal: Patient to meet estimated nutritional needs. Goal in progress. Patient tolerating Nepro at 35mL/hr. Tube feedings to be held at 1200 for prone positioning at 1300. Possible need for transfer to outside facility for CRRT. Last recorded weight is 67.5 kg which is increased. Bowel Motility: Last documented BM on 12/22/19. Labs Reviewed: Glu (323), BUN (53), Cr (6.5), Na (127), Alb (2.5) Meds Noted: Albumin, Rocephin, Albuterol, Epogen, Levophed, Protonix, Renvela, Zithromax, Fentanyl, Vasopressin, Solu Cortef, Novolog, Lantus, Versed Additional Notes: Insulin being increased. No documented skin breakdown. Will continue to follow closely. Nutrition Monitoring and Evaluation: Follow up every Sunday/Sunday. Follow daily in ICU rounds.
--- NOTE | 2019-12-23 11:20 | PM.PNNEP ---
Progress Note: A&P Assessment and Plan (1) End stage renal disease: Code(s): N18.6 - End stage renal disease Status: Chronic Assessment and Plan: due for hemodialysis today (normal schedule is T//) electrolytes, volume status, and clearance relatively stable given hemodynamic instability, hold HD today suspect will likely need CRRT moving forward -- discussed with Cardiology Consultants (2) Shock: Code(s): R57.9 - Shock, unspecified Status: Acute Assessment and Plan: requiring levophed at this time levophed requirements have increased in the lasat 24 hours continue antibiotics for now follow trend of hemodynamics (3) Acute respiratory failure: Qualifiers: Respiratory failure complication: hypoxia Qualified Code(s): J96.01 - Acute respiratory failure with hypoxia Code(s): J96.00 - Acute respiratory failure, unspecified whether with hypoxia or hypercapnia Status: Acute Assessment and Plan: presumably due to #4 and #5 continue ventilatory support wean as able (4) COVID-19: Code(s): U07.1 - COVID-19 Status: Acute Assessment and Plan: positive testing continue supportive therapy (5) Pneumonia: Qualifiers: Laterality: bilateral Lung location: unspecified part of lung Pneumonia type: due to unspecified organism Qualified Code(s): J18.9 - Pneumonia, unspecified organism Code(s): J18.9 - Pneumonia, unspecified organism Status: Acute Assessment and Plan: suspected related to # 2 and bacterial infection follow culture data on antibiotics (6) DM2 (diabetes mellitus, type 2): Qualifiers: Diabetes mellitus termite exterminator helper insulin use: with assisted use Diabetes mellitus complication status: with kidney complications Diabetes mellitus complication detail: with chronic kidney disease Chronic kidney disease stage: on chronic dialysis Qualified Code(s): E11.22 - Type 2 diabetes mellitus with diabetic chronic kidney disease; N18.6 - End stage renal disease; Z79.4 - terminal superintendent (current) use of insulin; Z99.2 - Dependence on renal dialysis Code(s): E11.9 - Type 2 diabetes mellitus without complications Status: Acute Assessment and Plan: follow accuchecks on SSI and Lantus Will continue to follow Subjective Date/time seen: 12/23/19 11:20 Patient has somewhat worsened in the last 24 hours -- requiring more pressor/levophed support along with maximum ventilator support as well; had planned dialysis today but will hold in light of these developments. Exam Narrative: Exam Narrative: General: Elderly AA female in NAD (intubated/sedated) Heart: normal S1 and S2; no rub Lungs: coarse breath sounds with crackles at the bases Abdomen: soft, nontender, nondistended, positive bowel sounds Extremities: no cyanosis or clubbing; trace edema Skin: warm and intact Objective Data Vital Signs Vital Signs: Laboratory Tests 12/23/19 06:23 12/23/19 06:23 Intake/Output Intake/Output: Intake & Output 12/20/19 12/21/19 12/22/19 12/23/19 23:59 23:59 23:59 23:59 Intake Total 1124 1605 1814 1031 Output Total 300 0 0 Balance 824 1605 1814 1031 Meds/Results Medications: Active Medications Generic Name Dose Route Start Last Admin Trade Name Freq PRN Reason Stop Dose Admin Acetaminophen 650 mg 12/20/19 08:45 12/22/19 12:15 Tylenol Elixir FEED TUBE 650 mg Q4H PRN Administration Headache Albuterol 2 puff 12/17/19 12:00 12/20/19 08:04 Proventil Hfa INHALATION Not Given QIDRT GEOVANNA Atorvastatin Calcium 40 mg 12/16/19 09:00 12/16/19 08:52 Lipitor PO 40 mg DAILY GEOVANNA Administration Brimonidine Tartrate 1 drop 12/16/19 09:00 12/23/19 07:46 Alphagan 0.2% Op Soln EACH EYE 01/15/20 09:01 1 drop BID GEOVANNA Administration Clopidogrel Bisulfate 75 mg 12/20/19 09:00 12/23/19 07:47 Plavix FEED TUBE 75 mg DAILY SC
--- NOTE | 2019-12-23 11:20 | P.PNNP_ITS ---
Progress Note: A&P Assessment and Plan (1) End stage renal disease: Code(s): N18.6 - End stage renal disease Status: Chronic Assessment and Plan: * due for hemodialysis today (normal schedule is T//) * electrolytes, volume status, and clearance relatively stable * given hemodynamic instability, hold HD today * suspect will likely need CRRT moving forward -- discussed with Motor Runner (2) Shock: Code(s): R57.9 - Shock, unspecified Status: Acute Assessment and Plan: * requiring levophed at this time * levophed requirements have increased in the lasat 24 hours * continue antibiotics for now * follow trend of hemodynamics (3) Acute respiratory failure: Qualifiers: Respiratory failure complication: hypoxia Qualified Code(s): J96.01 - Acute respiratory failure with hypoxia Code(s): J96.00 - Acute respiratory failure, unspecified whether with hypoxia or hypercapnia Status: Acute Assessment and Plan: * presumably due to #4 and #5 * continue ventilatory support * wean as able (4) COVID-19: Code(s): U07.1 - COVID-19 Status: Acute Assessment and Plan: * positive testing * continue supportive therapy (5) Pneumonia: Qualifiers: Laterality: bilateral Lung location: unspecified part of lung Pneumonia type: due to unspecified organism Qualified Code(s): J18.9 - Pneu monia, unspecified organism Code(s): J18.9 - Pneumonia, unspecified organism Status: Acute Assessment and Plan: * suspected related to # 2 and bacterial infection * follow culture data * on antibiotics (6) DM2 (diabetes mellitus, type 2): Qualifiers: Diabetes mellitus snf insulin use: with moth exterminator use Diabetes mellitus complication status: with kidney complications Diabetes mellitus complication detail: with chronic kidney disease Chronic kidney disease stage: on chronic dialysis Qualified Code(s): E11.22 - Type 2 diabetes mellitus with diabetic chronic kidney disease; N18.6 - End stage renal disease; Z79.4 - half-way (current) use of insulin; Z99.2 - Dependence on renal dialysis Code(s): E11.9 - Type 2 diabetes mellitus without complications Status: Acute Assessment and Plan: * follow accuchecks * on SSI and Lantus Will continue to follow Subjective Date/time seen: 12/23/19 11:20 Patient has somewhat worsened in the last 24 hours -- requiring more pressor/levophed support along with maximum ventilator support as well; had planned dialysis today but will hold in light of these developments. Exam Narrative: Exam Narrative: General: Elderly AA female in NAD (intubated/sedated) Heart: normal S1 and S2; no rub Lungs: coarse breath sounds with crackles at the bases Abdomen: soft, nontender, nondistended, positive bowel sounds Extremities: no cyanosis or clubbing; trace edema Skin: warm and intact Objective Data Vital Signs Vital Signs: Laboratory Tests 12/23/19 06:23 12/23/19 06:23 Intake/Output Intake/Output: Intake & Output 12/20/19 12/21/19 12/22/19 12/23/19 23:59 23:59 23:59 23:59 Intake Total 1124 1605 1814 1031 Output Total 300 0 0 Balance 824 1605 1814 1031 Meds/Results Medications: Active Medications
--- NOTE | 2019-12-23 11:26 | PM.EVENT ---
Event Note Event Note Event Note: I spoke to an updated patient's daughter by phone. She is aware of our plan to transfer patient to a tertiary facility if possible.. In light of patient's shock and end-stage renal disease she likely will need CRRT. I spoke to transfer line at [facility] and patient has been accepted at [facility]. accepting physician is Dr. Cabrera. Patient will be transferred today. we will plan to prone patient this afternoon, in light of these developments, will hold proning at this time.
[2019-12-23] MEDS: HYDROCORTISONE SODIUM SUCCINATE 100 MG/2 ML VIAL 50 MG IV PUSH (12:06)
--- NOTE | 2019-12-23 13:25 | PC.NURSE ---
Addendum entered by Yolis Souza RN 12/23/19 13:47: Suze Cast to pickler helper belongings Original Note: Pt transfered to [facility]. ART line in place. Levophed, Vasopressin, Fentanyl, and Versed infusing through central femoral line and sent with ambulance. ETT tube 24 @ lip and pt attached to EMT ventalitor w/ no issues noted. Report called to MELL Ewing @ [phone]. LUIS ANTONIO Gonzalez notified of transfer to outside facility with room number and contact number given.
--- NOTE | 2019-12-23 13:37 | WPDPN ---
Objective Data Vital Signs Vital Signs: Vital Signs - 24 hr 12/22/19 14:00 12/22/19 14:22 12/22/19 15:00 Temperature Pulse Rate 86 87 85 Respiratory Rate 18 16 Blood Pressure 131/49 L Pulse Oximetry 90 91 92 12/22/19 16:00 12/22/19 16:45 12/22/19 16:47 Temperature 36.3 C L Pulse Rate 78 77 77 Respiratory Rate 16 16 Blood Pressure 107/44 L Pulse Oximetry 99 100 100 12/22/19 18:00 12/22/19 20:00 12/22/19 21:51 Temperature 36.8 C Pulse Rate 79 76 75 Respiratory Rate 16 17 Blood Pressure 129/35 L 111/27 L Pulse Oximetry 97 98 95 12/22/19 22:00 12/22/19 23:05 12/23/19 00:00 Temperature Pulse Rate 75 76 75 Respiratory Rate 16 16 Blood Pressure 130/30 L 130/30 L Pulse Oximetry 95 97 97 12/23/19 02:00 12/23/19 02:22 12/23/19 04:00 Temperature Pulse Rate 75 74 75 Respiratory Rate 16 16 Blood Pressure 142/38 H 136/31 L Pulse Oximetry 97 97 97 12/23/19 04:54 12/23/19 06:00 12/23/19 07:53 Temperature 36.5 C 36.1 C L Pulse Rate 74 75 76 Respiratory Rate 16 Blood Pressure 130/30 L 122/29 L Pulse Oximetry 90 93 95 12/23/19 08:00 12/23/19 09:11 12/23/19 10:00 Temperature Pulse Rate 77 75 75 Respiratory Rate 18 Blood Pressure 138/33 L Pulse Oximetry 92 95 12/23/19 11:50 12/23/19 12:00 Temperature 36.3 C L Pulse Rate 75 76 Respiratory Rate 19 Blood Pressure 152/36 H Pulse Oximetry 99 94 Intake/Output Intake/Output: Intake & Output 12/20/19 12/21/19 12/22/19 12/23/19 23:59 23:59 23:59 23:59 Intake Total 1124 1605 1814 1286 Output Total 300 0 0 Balance 824 1605 1814 1286 Meds/Results Medications: Active Medications Generic Name Dose Route Start Last Admin Trade Name Freq PRN Reason Stop Dose Admin Acetaminophen 650 mg 12/20/19 08:45 12/22/19 12:15 Tylenol Elixir FEED TUBE 650 mg Q4H PRN Administration Headache Albuterol 2 puff 12/17/19 12:00 12/20/19 08:04 Proventil Hfa INHALATION Not Given QIDRT GEOVANNA Atorvastatin Calcium 40 mg 12/16/19 09:00 12/16/19 08:52 Lipitor PO 40 mg DAILY GEOVANNA Administration Brimonidine Tartrate 1 drop 12/16/19 09:00 12/23/19 07:46 Alphagan 0.2% Op Soln EACH EYE 01/15/20 09:01 1 drop BID GEOVANNA Administration Clopidogrel Bisulfate 75 mg 12/20/19 09:00 12/23/19 07:47 Plavix FEED TUBE 75 mg DAILY GEOVANNA Administration Dextrose 12.5 gm 12/19/19 07:59 12/20/19 08:49 Dextrose 50% Syringe IV PUSH 12.5 gm PRN PRN Administration Hypoglycemia Protocol Epoetin Calvin 10,000 units 12/23/19 19:00 Epogen IV PUSH 12/23/19 19:01 ONCE ONE Glucagon 1 mg 12/19/19 07:59 Glucagon For Inj IM PRN PRN Hypoglycemia Protocol Glucose 15 gm 12/19/19 07:59 Glutose 15 PO PRN PRN Hypoglycemia Protocol Heparin Sodium (Porcine) 5,000 units 12/17/19 14:00 12/23/19 06:16 Heparin Sodium SUB-Q 5,000 units Q8HR GEOVANNA Administration Hydrocortisone Sodium Succinate 50 mg 12/23/19 12:00 12/23/19 12:06 Solu-Cortef IV PUSH 50 mg Q6HR GEOVANNA Administration Azithromycin 500 mg in 250 mls @ 250 mls/hr 12/16/19 14:00 12/22/19 14:51 Zithromax IVPB Infused Q24H GEOVANNA Infusion Ceftriaxone Sodium/Dextrose 1 gm in 50 mls @ 100 mls/hr 12/16/19 12:00 12/23/19 12:05 Rocephin 1 Gm/D5w 50 Ml IVPB 100 mls/hr Q24H GEOVANNA Administration Midazolam HCl 50 mg in 100 mls @ 4 mls/hr 12/18/19 23:30 12/23/19 12:16 Versed 50 Mg/D5w 100 Ml IV CONT 2 mg/hr .Q25H GEOVANNA 4 mls/hr Titration Protocol 2 MG/HR Fentanyl Citrate 2,500 mcg in 250 mls @ 5 mls/hr 12/18/19 23:30 12/23/19 12:16 Fentanyl 2,500 Mcg/Ns 250 Ml IV CONT 50 mcg/hr .Q50H GEOVANNA 5 mls/hr Titration Protocol 50 MCG/HR Norepinephrine Bitartrate 8 mg in 250 mls @ 30 mls/hr 12/19/19 00:20 12/23/19 12:00 Levophed 8 Mg/D5w 250 Ml IV CONT 16 mcg/min .Q8H20M GEOVANNA 30 mls/hr Titration Protoc
[2019-12-23 15:23] LABS: Glucose Point of Care 271 (65-105)
--- NOTE | 2019-12-23 16:19 | PM.TDS ---
Transfer Discharge Sum: Prov Provider Date of admission: 12/15/19 14:58 Primary care physician: GIBSON,JANA Bosch Admitting clinician: Aimee Severino MD Attending physician on admission: Aimee Severino Consults: 12/15/19 Consult to Physician Routine Comment: Consulting Provider: Lilibeth Richardson inbound call center representative/MD group to consult: Nephrology Reason for consultation: End-stage renal disease Has provider been notified: Yes 12/17/19 Consult to Physician Routine Comment: Consulting Provider: Angie Simmons Reason for consultation: worsening cxr, increased needs for O2 Has provider been notified: Yes 12/23/19 Consult to Physician Routine Comment: paged to notify Consulting Provider: Tay Hendricks inbound call center representative/ group to consult: Dr. Hendricks Reason for consultation: COVID-19 Has provider been notified: Yes Attending physician on discharge: Aimee Polanco Discharging clinician: Aimee Polanco Anticipated date of transfer: 12/23/19 Receiving physician/facility: Dr. Cabrera/[facility] DS: Admitting Diagnosis Admitting Diagnosis Admitting Diagnosis: Pneumonia, unspecified organism DS: Discharge Diagnosis Discharge Diagnosis (1) Acute respiratory failure: Qualifiers: Respiratory failure complication: hypoxia Qualified Code(s): J96.01 - Acute respiratory failure with hypoxia Code(s): J96.00 - Acute respiratory failure, unspecified whether with hypoxia or hypercapnia Status: Acute (2) Shock: Code(s): R57.9 - Shock, unspecified Status: Acute (3) COVID-19: Code(s): U07.1 - COVID-19 Status: Acute (4) Pneumonia: Qualifiers: Laterality: bilateral Lung location: unspecified part of lung Pneumonia type: due to unspecified organism Qualified Code(s): J18.9 - Pneumonia, unspecified organism Code(s): J18.9 - Pneumonia, unspecified organism Status: Acute (5) Elevated troponin: Code(s): R79.89 - Other specified abnormal findings of blood chemistry Status: Acute (6) End stage renal disease on dialysis: Code(s): N18.6 - End stage renal disease; Z99.2 - Dependence on renal dialysis Status: Chronic (7) Hypertension: Qualifiers: Hypertension type: essential hypertension Qualified Code(s): I10 - Essential (primary) hypertension Code(s): I10 - Essential (primary) hypertension Status: Chronic (8) DM2 (diabetes mellitus, type 2): Qualifiers: Diabetes mellitus group home insulin use: with group home use Diabetes mellitus complication status: with kidney complications Diabetes mellitus complication detail: with chronic kidney disease Chronic kidney disease stage: on chronic dialysis Qualified Code(s): E11.22 - Type 2 diabetes mellitus with diabetic chronic kidney disease; N18.6 - End stage renal disease; Z79.4 - skilled nursing (current) use of insulin; Z99.2 - Dependence on renal dialysis Code(s): E11.9 - Type 2 diabetes mellitus without complications Status: Acute (9) Hyperlipidemia: Qualifiers: Hyperlipidemia type: unspecified Qualified Code(s): E78.5 - Hyperlipidemia, unspecified Code(s): E78.5 - Hyperlipidemia, unspecified Status: Chronic (10) Glaucoma: Qualifiers: Glaucoma type: unspecified Laterality: bilateral Qualified Code(s): H40.9 - Unspecified glaucoma Code(s): H40.9 - Unspecified glaucoma Status: Chronic Transfer Discharge Sum: Med Medications Active and Home Medications: Home Medications amlodipine 10 mg PO DAILY 12/15/19 [History Confirmed 12/15/19] atorvastatin 40 mg PO DAILY 12/15/19 [History Confirmed 12/15/19] brimonidine-timolol [Combigan] 1 drp OPHTHALMIC (EYE) BID 12/15/19 [History Confirmed 12/15/19] carvedilol 6.25 mg PO BID 12/15/19 [History Confirmed 12/15/19] clopidogrel 75 mg PO DAILY 12/15/19 [History Confirmed 12/15/19] hydralazine 5
--- NOTE | 2020-01-16 13:53 | WPDINFPN2 ---
Subjective Date/time seen: 01/16/20 13:53 Interval history: patient not seen as she was discharged prior to encounter Objective Data Meds/Results Radiology Results: ITS Impressions Chest X-Ray 12/22/19 06:55 IMPRESSION: 1. No significant interval change in diffuse bilateral lung disease consistent with pneumonia, pulmonary edema, ARDS or some combination thereof. 2. Small bilateral pleural effusions.
== END 2019-12-23 13:30 | disposition short-term general hospital (02) | DRG 207 ==
LOC: ANHED 14:30 → ANHICU 12-16 00:09
PROVIDERS: Internal Medicine; Nurse Practitioner; Admitting Provider Hospitalist; Emergency Provider Emergency Medicine; PCP Family Medicine; Visit Provider Hospitalist
DX: U07.1 COVID-19 (principal); J96.01 Acute respiratory failure with hypoxia; J12.89 Other viral pneumonia; J15.9 Unspecified bacterial pneumonia; N18.6 End stage renal disease; R57.9 Shock, unspecified; I12.0 Hypertensive chronic kidney disease with stage 5 chronic kidney disease or end stage renal disease; I95.89 Other hypotension; E78.5 Hyperlipidemia, unspecified; E11.22 Type 2 diabetes mellitus with diabetic chronic kidney disease; R79.89 Other specified abnormal findings of blood chemistry; H40.9 Unspecified glaucoma; Z99.2 Dependence on renal dialysis; Z79.4 Long term (current) use of insulin
CPT/HCPCS: 36415; 36600; 71045; 71046; 80048; 80053; 82375; 82550; 82728; 82805; 83036; 83050; 83605; 83615; 83735; 83880; 84100; 84443; 84484; 85025; 85027; 85380; 85610; 85730; 86140; 87040; 87635; 93005; 93306; 94002; 94003; 94640; 96365; 96368; 99291; A9270; C1751; C9113; G0257; J0330; J0456; J0696; J1644; J1720; J1815; J2250; J3010; J7030; P9047; Q4081; U0003

== ENCOUNTER 2020-04-13 08:16 | Outpatient (CLI) | payer MEDICARE, MEDICAID, SELFPAY ==
--- NOTE | ~2020-04-13 | XR_ITS ---
MODIFIED ESOPHAGRAM HISTORY: Dysphagia. TECHNIQUE: Modified barium esophagram was performed on 04/13/2020. I administered fluoroscopy and perfo rmed the exam with speech pathologist. Patient was seated for lateral fluoroscopic imaging for inges tion of thin liquids, pudding, solids and quantified amounts, followed by thin liquids in uncontrolle d amounts. This was recorded on tape. A single fluoroscopic spot image was also recorded. The DAP for this procedure was 2.85 Gycm2. The amount of fluoroscopy time used during this procedure was 4.4 min utes. FINDINGS: Oral stage: Reduced lingual control, coordination, range of motion and pelvis shaping. Pharyngeal stage: Reduced laryngeal elevation with some laryngeal penetration which remains below the vocal folds with no aspiration. Cervical/esophageal stage: Adequate function. IMPRESSION: Mild oral and pharyngeal dysphagia with some laryngeal penetration but no aspiration. Pl ease correlate with speech pathologist findings and specific feeding recommendations. Reviewed, dictated and finalized at location A. IMPRESSION: Mild oral and pharyngeal dysphagia with some laryngeal penetration but no aspiration. Please correlate with speech pathologist findings and speci fic feeding recommendations.
--- NOTE | 2020-04-14 15:07 | STOPEVAL ---
MODIFED BARIUM SWALLOW EVALUATION: Thank you for referring Suzanne Cast to [facility].? Attending Provider: Kirstie AtkinsonHiro *ST Outpatient Evaluation ([facility]) Start: 04/13/20 16:10 Freq: Status: Discharge Protocol: Document 04/13/20 09:00 BECHERERT (Rec: 04/13/20 16:23 BECHERERT [email or web address]) Therapy Assessment Status Assessment Status Assessment Status Evaluation Outpatient Past Medical History Past Medical History Source of Past Medical History Family/Significant Other Genitourinary History Hx Renal Disease Yes Hx Other Genitourinary Disorders Yes: Dialysis ,Th,Sat Endocrine History Hx Diabetes Yes Evaluation Information Problem Diagnosis dysphagia Onset 4 months ago Subjective Information Pt has a PEG tube for all Query Text:As Reported By Patient/ nutrition & is NPO;she has a Family thomas and uses a jamie lift for all transfers. Pt lives at home with family who provide her total care. Pt tested for COVID 3+ months ago and was in the hospital for 3 months; she is currently receiving PT and ST services at home. Pain Assessment Timing of Pain Assessment Timing of Pain Assessment Assessment Self Report Self Report Pain Level 0 Pain Score Pain Score 0: Self Report Modified Barium Swallow Evaluation Recent Swallowing History Reports Dysphagia Yes History of Dysphagia No Other Related History severely deconditioned due to COVID 19 Reported Difficult Consistencies Thin Liquids,Thick Liquids, Pureed,Liquid/Solid Mix,Pills, Solids Intake Method Prior to Swallow Gastrostomy,NPO Evaluation Consistency Thin Uncontrolled 2 Method of Presentation Straw Oral Preparatory Symptoms Within Functional Limits Oral Phase Symptoms Within Functional Limits Pharyngeal Phase Symptoms Within Functional Limits, Laryngeal Penetration Severity of Vallecular Residue None - 0% No Residue Severity of Pyriform Sinus Residue None - 0% No Residue 8 Point Laryngeal Penetration-Aspiration Material Enters the Airway, Scale Remains Above Vocal Folds, is Ejected Cervical/Esophageal Symptoms Within Functional Limits Thin Uncontrolled 1 Other Amount cup assisted Oral Preparatory Symptoms Within Functional Limits Oral Phase Symptoms Within Functional Limits Pharyngeal Phase Symptoms Within Functional Limits,
== END 2020-04-13 08:17 | disposition home or self-care (01) ==
PROVIDERS: PCP Internal Medicine Infectious Disease; Visit Provider Internal Medicine Infectious Disease
DX: R13.10 Dysphagia, unspecified (principal)
CPT/HCPCS: 92611

== ENCOUNTER 2020-06-03 10:10 | Inpatient (IN) | payer MEDICARE, MEDICAID, SELFPAY ==
[2020-06-03] VITALS (23 sets, daily range): BP systolic 150–209; BP diastolic 49–94; PULSE 81–93; RESP 14–30; TEMP 0–37.1; O2SAT 79–100
--- NOTE | ~2020-06-03 | US_ITS ---
EXAMINATION: US venous doppler [facility] DATE: 06/05/2020 10:53 INDICATION: Shortness of breath TECHNIQUE: Robison scale images without and with compression and Doppler images of the bilateral lower e xtremity veins were obtained. COMPARISON: None FINDINGS: The right common femoral vein, profunda femoral vein, femoral vein, popliteal vein, peroneal trunk, p osterior tibial veins, and greater saphenous vein are patent. The left common femoral vein, profunda femoral vein, femoral vein, popliteal vein, peroneal trunk, po sterior tibial veins, and greater saphenous vein are patent. IMPRESSION: 1. Patent bilateral lower extremity veins. No evidence of deep venous thrombosis. Reviewed, dictated and finalized at location A. IMPRESSION: 1. Patent bilateral lower extremity veins. No evidence of deep venous thrombosi s.
--- NOTE | ~2020-06-03 | XR_ITS ---
XR chest 1V portable DATE: 06/03/2020 11:19 INDICATION: Shortness of breath TECHNIQUE: Portable AP chest on 06/03/2020 at 1120 hours COMPARISON: 12/22/2019 portable AP chest at 0528 hours FINDINGS: Endotracheal and nasogastric tubes have been removed since 12/22/2019. Left upper extremity PIC catheter tip overlies the superior vena cava. There are extensive bilateral pulmonary infiltrates which are more prominent centrally suggesting pul monary edema, but there is moderate improvement compared to 12/22/2019. Borderline heart size. Aortic arch calcification. There is minimal if any pleural effusion. No pneumo thorax. Surgical clips overlie the right upper quadrant, suggesting cholecystectomy. IMPRESSION: Bilateral predominantly central pulmonary infiltrates suggesting pulmonary edema; pneumon ia is not excluded. Reviewed, dictated and finalized at location A. IMPRESSION: Bilateral predominantly central pulmonary infiltrates suggesting pu lmonary edema; pneumonia is not excluded.
--- NOTE | ~2020-06-03 | XR_ITS ---
EXAMINATION: XR chest 2V DATE: 06/05/2020 09:24 INDICATION: Shortness of breath TECHNIQUE: AP and lateral views of the chest are obtained. COMPARISON: 06/03/2020 FINDINGS: Airspace opacities persist in all lung zones with slight improvement. There are small pleur al effusions. No pneumothorax is identified. Stable cardiomegaly is noted. A left upper extremity PIC C ends with its tip in the distal superior vena cava. IMPRESSION: 1. Diffuse lung disease with slight improvement, consistent with pneumonia and/or pulmonary edema. 2. Stable cardiomegaly. 3. Small pleural effusions. Reviewed, dictated and finalized at location A. IMPRESSION: 1. Diffuse lung disease with slight improvement, consistent with pneumonia and/ or pulmonary edema. 2. Stable cardiomegaly. 3. Small pleural effusions.
--- NOTE | ~2020-06-03 | CT_ITS ---
EXAMINATION: CTA chest PE protocol DATE: 06/03/2020 12:16 INDICATION: Shortness of breath. TECHNIQUE: Computed tomography angiography (CTA) of the chest was performed with 100 mL Omnipaque-350 intravenous contrast timed to evaluate the pulmonary arteries. Coronal maximum intensity projection 3D-reconstructions were created by the technologist. Automated exposure control and iterative reconst ruction technique were employed. The dose-length product was 509.75 mGy-cm. COMPARISON: Chest CT 12/06/2005 FINDINGS: There are small pleural effusions. A calcified right lung nodule and calcified right hilar lymph nodes are consistent with old granulomatous disease. There is mild emphysema. There are patchy groundglass opacities and small airspace opacities in all lobes. There is heterogeneously distributed interlobular and intralobular septal thickening in all lobes. There is a 9 mm nodule in left thyroid , likely not clinically significant. A left upper extremity peripherally inserted central venous cath eter (PICC) is seen with tip in the superior vena cava. There is mediastinal lymphadenopathy. Cardiom egaly is noted. No pericardial effusion. The central pulmonary arteries are enlarged, consistent with pulmonary arterial hypertension. There is no pulmonary embolus. There is bilateral axillary lymphade nopathy, bilateral subpectoral lymphadenopathy, and bilateral supraclavicular lymphadenopathy. For ex ample, a left axillary node measures 3.3 x 1.8 cm. Body wall edema is noted. There is a stent in righ t cephalic vein. There is mild intrahepatic biliary duct dilatation. IMPRESSION: 1. No pulmonary embolus. Sensitivity is mildly decreased by motion artifact. 2. Diffuse lung disease, consistent with pneumonia and/or pulmonary edema. 3. Small pleural effusions. 4. Mild emphysema. 5. Chest lymphadenopathy, which may be reactive lymphadenopathy or malignancy such as lymphoma. Reviewed, dictated and finalized at location A. IMPRESSION: 1. No pulmonary embolus. Sensitivity is mildly decreased by motion artifact. 2. Diffuse lung disease, consistent with pneumonia and/or pulmonary edema. 3. Small pleural effusions. 4. Mild emphysema. 5. Chest lymphadenopathy, which may be reactive lymphadenopathy or malignancy s uch as lymphoma.
--- NOTE | 2020-06-03 10:16 | ECG_ITS ---
Measurements Intervals [place] Rate: 96 P: 50 MA: 183 QRS: 29 QRSD: 72 T: 47 QT: 363 QTc: 459 Interpretive Statements SINUS RHYTHM POSSIBLE LEFT ATRIAL ENLARGEMENT BASELINE WANDER- I, II, V1-V2, V4, V6 BORDERLINE ECG Electronically Signed On 06-03-2020 12:37:17 CDT by Bryan Monson D.O.
--- NOTE | 2020-06-03 10:18 | ED.GENADULT ---
HPI - General Adult General Chief complaint: Shortness of Breath/Dyspnea Stated complaint: SOB Source: patient and family History of Present Illness HPI narrative: Patient is a 74 y/o female brought in by EMS for SOB. Daughter states that speech therapy was working with patient at home this morning and they were concerned about her breathing. Patient states that she is SOB. There is no alleviating or exacerbating. She has some cough, but no chest pain. She is chronically debilitated. She lives at home with family. She has a gastrostomy tube for feeding. She has a PICC line for sacral wound infection. She has ESRD and goes to dialysis on Mondays and Fridays. Related Data Home Medications Medication Instructions Recorded Confirmed B complex-vitamin C-folic acid tablet 06/03/20 [Renavit Multivitamin] albuterol sulfate [Ventolin HFA] INHALATION 06/03/20 bupropion HCl PO 06/03/20 cholecalciferol (vitamin D3) 06/03/20 diltiazem HCl 06/03/20 midodrine mg 06/03/20 06/03/20 tramadol mg 06/03/20 Allergies Allergy/AdvReac Type Severity Reaction Status Date / Time No Known Allergies Allergy Mild Verified 06/03/20 10:32 Review of Systems Constitutional: Constitutional: Denies chills, Denies fever(s), Denies headache(s) and Denies weakness Eyes: Eyes: Denies blurry vision ENT: Denies headache(s) and Denies neck pain Cardiovascular: Cardiovascular: Denies chest pain and Denies dyspnea Respiratory: Respiratory: Reports cough and Reports dyspnea Gastrointestinal: Gastrointestinal: Denies abdominal pain, Denies diarrhea, Denies nausea and Denies vomiting Genitourinary: Genitourinary: Denies hematuria and Denies dysuria Musculoskeletal: Musculoskeletal: Denies back pain and Denies neck pain Neurologic: Denies headache(s) and Denies weakness PMFSH Past Medical History Medical History AV fistula DM2 (diabetes mellitus, type 2) On long-acting insulin Glaucoma Hyperlipidemia Hypertension Surgical History Surgical History S/P dialysis catheter insertion AV fistula Family History Family History Unknown Family history unknown Mother Diabetes mellitus Sibling Uterine cancer Social History Social History Social History: She tells me that she had 3 children. She lives home alone. She tells me that a daughter lives nearby. That daughters her durable power assistant county attorney for healthcare. She desires to be a full code. Lifelong nonsmoker. She is . She is disabled Smoking status: Never smoker Alcohol intake: never Substance use: never Gender identity (if verbalized by the patient): Female Spiritual care concerns: No Exam Const: General: no acute distress and well developed Orientation/consciousness: oriented to person, oriented to place, oriented to time and patient oriented x3 HENMT: Head: normocephalic Ears: external ears normal General nose exam: Normal external nose present Eyes: General: appearance normal, both eyes and all related structures Conjunctivae: conjunctivae normal Neck: Neck: normal visual inspection and full ROM Chest: Chest palpation & inspection: normal inspection of the chest and no tenderness Resp: Effort & Inspection: normal respiratory effort Auscultation: clear to auscultation bilaterally Cardio: Rate: regular rate Rhythm: regular rhythm GI: GI Palp: No abdominal tenderness and Yes Soft to palpation Skin: General skin exam: normal color and turgor normal Wounds: wounds noted (sacral wound with wound vac in place) Neuro: General: oriented to person, oriented to place, oriented to time and patient oriented x3 Cognition (Neuro): normal cognition Extrem: General: normal to inspection, full ROM and no pedal edema Psych: Appearance: grossly n
[2020-06-03 10:55] LABS: Basophils Absolute Auto 0.1 K/mm3 (0.0-0.1); Basophils Percent Auto 0.3 % (0.2-1.2); Eosinophils Absolute Auto 0.4 K/mm3 (0-0.3); Eosinophils Percent Auto 2.2 % (0-4.4); Hematocrit 27.5 % (37.0-47.0); Hemoglobin 8.1 g/dL (12.0-15.0); Immature Granulocyte Absolute 0.14 K/mm3 (0.00-0.031); Immature Granulocyte Percent A 0.8 % (0-0.5); Lymphocytes Absolute Auto 6.22 K/mm3 (0.9-3.2); Lymphocytes Percent Auto 34.3 % (18.3-44.2); Mean Corpuscular HGB Conc 29.5 g/dl (32-36); Mean Corpuscular Hemoglobin 27.6 pg (26-34); Mean Corpuscular Volume 93.5 fl (80-100); Mean Platelet Volume 9.6 fl (7.4-10.4); Monocytes Absolute Auto 2.8 K/mm3 (0.1-0.6); Monocytes Percent Auto 15.4 % (2.6-8.5); Neutrophils Absolute Auto 8.5 K/mm3 (1.3-6.7); Platelet Count Result 303 k/mm3 (150-375); Red Blood Count 2.94 M/mm3 (4.2-5.4); Red Cell Distribution Width 18.1 % (11.5-14.5); White Blood Count 18.1 K/mm3 (4.5-10.0)
[2020-06-03 11:05] LABS: Alanine Aminotransferase 12 U/L (4-35); Albumin Level 3.4 g/dL (3.5-5.1); Alkaline Phosphatase 213 U/L (38-126); Anion Gap 11 mmol/L (8-16); Aspartate Amino Transferase 41 U/L (14-36); Bilirubin,Total 0.4 mg/dL (0.2-1.3); Blood Urea Nitrogen 85 mg/dL (7-17); Calcium 9.6 mg/dL (8.4-10.2); Carbon Dioxide 33 mmol/L (22-30); Chloride 96 mmol/L (98-107); Estimated CRCL calculation 9 ml/min; Estimated Glomerular Filt Rate 9; Glucose 166 mg/dL (65-105); Potassium 4.2 mmol/L (3.4-5.0); Sodium 140 mmol/L (137-145)
[2020-06-03 11:08] LABS: D Dimer 2.59 ug/mL (<0.48)
[2020-06-03 11:15] LABS: Hypochromasia 2+ (NORMAL); Platelet Estimate Adequate (Adequate)
[2020-06-03 11:16] LABS: Anisocytosis 1+ (NORMAL); Macrocytosis 1+ (NORMAL)
[2020-06-03 11:17] LABS: NT Pro B Type Natriuretic Pept 16300 PG/ML (5-100); Troponin I 0.022 ng/mL (0.000-0.034)
[2020-06-03] MEDS: FUROSEMIDE INJ 100 MG/10 ML VIAL 80 MG IV PUSH (13:27)
--- NOTE | 2020-06-03 13:42 | PC.NURSE ---
Report attempted at this time, RN states that floor is working out COVID staffing and they will call back.
[2020-06-03 17:39] LABS: Troponin I 0.025 ng/mL (0.000-0.034)
--- NOTE | 2020-06-03 18:08 | PM.CNNEP ---
Assessment and Plan Assessment and plan (1) End stage renal disease: Code(s): N18.6 - End stage renal disease Status: Chronic Assessment and Plan: HD tomorrow and continue Sunday and Sunday dialysis schedule follow electrolytes, volume status, and clearace (2) Volume overload: Qualifiers: Hypervolemia type: unspecified Qualified Code(s): E87.70 - Fluid overload, unspecified Code(s): E87.70 - Fluid overload, unspecified Status: Acute Assessment and Plan: as noted by imaging studies plan DUF today for fluid removal further fluid removal with HD tomorrow (3) Pneumonia: Qualifiers: Laterality: bilateral Lung location: unspecified part of lung Pneumonia type: due to unspecified organism Qualified Code(s): J18.9 - Pneumonia, unspecified organism Code(s): J18.9 - Pneumonia, unspecified organism Status: Acute Assessment and Plan: suggestion by admission imaging repeat CXR after fluid removal to reassess (4) Hypertension: Qualifiers: Hypertension type: essential hypertension Qualified Code(s): I10 - Essential (primary) hypertension Code(s): I10 - Essential (primary) hypertension Status: Chronic Assessment and Plan: follow trend after fluid removal follow hemodynamics (5) Sacral wound: Code(s): S31.000A - Unspecified open wound of lower back and pelvis without penetration into retroperitoneum, initial encounter Status: Acute Assessment and Plan: noted with wound vac in place PICC line in place for antibiotics elevated WBC noted... Infectious Disease consulted (6) Anemia: Code(s): D64.9 - Anemia, unspecified Status: Chronic Assessment and Plan: due to ESRD, acute illness, and inflammation (from sacral wound?) Epogen with HD check iron studies Will continue to follow. History of Present Illness Reason for Consult Consult date: 06/03/20 Reason for consult: end stage renal disease Chief Complaint Chief complaint: shortness of breath History of Present Illness Narrative: The patient is unfortunate 74-year-old female with a past medical history as outlined below who presented to [facility] Emergency room for complaints of shortness of breath. According to the ER record, the patient was working with speech therapy earlier today and they seem to be somewhat concerned about her breathing. On further evaluation, the patient admitted that she felt a bit more short of breath than usual. Nothing specific made that shortness of breath worse or better but she does admit to some increased cough but no chest pain. Given her complex medical history and the constellation of symptoms as mentioned, she presents to the ER for further evaluation. Workup and evaluation in the emergency room demonstrated the patient to be hemodynamically stable with a subjective complaint of shortness of breath. She did not appear to be hypoxic on room air. Routine blood test demonstrated labs consistent with her known history of end-stage renal disease but her CBC did demonstrate an elevated white blood cell count. Her D-dimer was elevated so she underwent a CT scan of her chest which demonstrated evidence of pulmonary vascular congestion/edema along with possible pneumonia as well as small bilateral pleural effusions. It should be noted the patient was hospitalized here about 5 months ago for acute respiratory failure that was secondary to COVID-19 infection/pneumonia. She had to be transferred to [facility] after her COVID-19 infection progressed to intubation, mechanical ventilation, as well as hemodynamic instability requiring vasopressor therapy. She was transferred as it was felt that regular intermittent hemodialysis would be challenging to do and she seemed to be a better candidate for continuous renal replacement therapy. Her hospital course
--- NOTE | 2020-06-03 18:48 | PC.NURSE ---
Pt to dialysis per bed.
--- NOTE | 2020-06-03 18:49 | PC.NURSE ---
Attempted to notify [facility] of Pt BP being elevated, as well as PT desated and is now requiring 3L NC.
[2020-06-03] MEDS: EPOETIN ALFA-EPBX 10,000 UNITS/ML VIAL 10000 UNITS IV PUSH (19:29)
[2020-06-03] MEDS: SODIUM CHLORIDE 0.9% IV 1,000 ML 999 ML IV CONT (19:30)
--- NOTE | 2020-06-03 20:38 | PM.IMHP ---
H&P: HPI History of Present Illness Date/Time: 06/03/20 20:38 Chief complaint: shortness of breath Narrative: Suzanne Cast is a 74 year old female with a past medical history of end-stage renal disease, type 2 diabetes on insulin, prolonged hospitalization December 2019 due to respiratory failure from COVID-19 with subsequent sacral decubitus ulcer on Zosyn who presented to the ER with shortness of breath. source of information is mostly from ER records and past medical records as the patient is only alert oriented x2. The patient was admitted to the hospital in December due to COVID-19 pneumonia and 2 days later was intubated. After intubation she developed hypotension and was transferred to [facility] for CRRT. She had a prolonged hospitalization complicated by tracheostomy placement (with subsequent removal), G-tube placement and development of decubitus ulcers. she is now eating a pureed diet but still receives G-tube feeds from 4:00 p.m. to 10:00 a.m.. The patient was evaluated by speech therapy at home and speech therapist was worried about the patient's breathing. The patient stated to the ER staff that she was short of breath. However at the time of my evaluation the patient had almost completed dialysis and reported that her shortness of breath had improved the patient had no alleviating or exacerbating factors for her shortness of breath. Family had reported that the patient was having some cough but the patient denied cough at the time of my evaluation. She has not been having any chest pain. She is chronically debilitated and is bedbound. She is currently living with family. She has eschar to bilateral heels and decubitus ulcer to her sacrum with wound VAC in place. She is currently on Zosyn due to his sacral decubitus ulcer infection. She has a PICC line in her left upper extremity and an AV fistula in her right upper extremity. The patient thought that she was at [facility]. She was oriented to person and month but was unable to state the year. Review of Systems Review of Systems: Narrative: 12 systems were reviewed with pertinent positives and negatives per HPI. Except as documented in the HPI, all other systems were reviewed and are negative. However review of systems was limited due to the patient's orientation. [facility], [facility] Past Medical History Medical History (Updated 06/03/20 @ 20:59 by Sharona Thompson DO) AV fistula COVID-23 Dec 2019 requiring intubation and transfer to tertiary care for CRRT CVA (cerebral vascular accident) 2008 Diastolic dysfunction echocardiogram December 2019: EF 65-70%, moderately increased left ventricular wall thickness, grade 1 diastolic dysfunction, global longitudinal strain abnormal had 15.9, DM2 (diabetes mellitus, type 2) On long-acting insulin End-stage renal disease on hemodialysis Gastrointestinal tube in situ GERD (gastroesophageal reflux disease) Glaucoma Hyperlipidemia Hypertension Surgical History Surgical History (Updated 06/04/20 @ 01:09 by Sharona Thompson DO) History of bilateral cataract extraction S/P dialysis catheter insertion AV fistula right upper arm Status post insertion of percutaneous endoscopic gastrostomy (PEG) tube Status post tracheostomy with subsequent removal Family History Family History Mother Diabetes mellitus Hypertension Sibling Uterine cancer Social History Social History (Updated 06/04/20 @ 01:10 by Sharona Thompson DO) Social History: She has 3 children. She lived at home alone until her diagnosis of COVID pneumonia in December 2019. Code status: Full code Durable power of assistant district attorney for healthcare: Suze Cast (daughter) Smoking status: Never smoker Alcohol intake: never Substance use: never Gender identity (if verbalized by the patient): Female Spiritual care concerns: No Meds Home Medications and Allergies Home Medications Medic
[2020-06-03 20:47] LABS: SARS-CoV-2 RNA PCR Negative
--- NOTE | 2020-06-03 21:40 | PC.NURSE ---
Returned to room 323 from Dialysis per hospital bed.
[2020-06-03] MEDS: dilTIAZem HCL 30 MG TABLET FEED TUBE (22:00)
[2020-06-03] MEDS: INSULIN GLARGINE (*BKC) 100 UNITS/ML 18 UNITS SUB-Q (22:11)
[2020-06-03] MEDS: CENTRAL LINE FLUSH 10 ML IV PUSH (22:14)
[2020-06-04] VITALS (26 sets, daily range): BP systolic 110–195; BP diastolic 47–80; PULSE 60–93; RESP 16–18; TEMP 36.6–37.1; O2SAT 96–100; BMI 27.1
[2020-06-04 00:47] LABS: Glucose Point of Care 147 (65-105)
[2020-06-04 04:27] LABS: Glucose Point of Care 102 (65-105)
--- NOTE | 2020-06-04 05:30 | PC.NURSE ---
Relocated to room 316 per hospital bed. Belongings transferred and verified.
[2020-06-04 06:52] LABS: Glucose Point of Care 91 (65-105)
[2020-06-04 08:07] LABS: Hemoglobin 7.8 g/dL (12.0-15.0); Mean Corpuscular Hemoglobin 28.3 pg (26-34); Mean Corpuscular Volume 94.2 fl (80-100); Mean Platelet Volume 9.9 fl (7.4-10.4); Platelet Count Result 260 k/mm3 (150-375); Red Blood Count 2.76 M/mm3 (4.2-5.4); Red Cell Distribution Width 18.2 % (11.5-14.5); White Blood Count 14.5 K/mm3 (4.5-10.0)
[2020-06-04 08:20] LABS: Anion Gap 10 mmol/L (8-16); Blood Urea Nitrogen 93 mg/dL (7-17); Calcium 9.3 mg/dL (8.4-10.2); Carbon Dioxide 33 mmol/L (22-30); Chloride 97 mmol/L (98-107); Estimated CRCL calculation 8 ml/min; Estimated Glomerular Filt Rate 8; Glucose 84 mg/dL (65-105); Potassium 4.2 mmol/L (3.4-5.0); Sodium 140 mmol/L (137-145)
[2020-06-04] MEDS: CHOLECALCIFEROL 1,000 UNITS TABLET 1000 UNITS FEED TUBE (09:25)
[2020-06-04] MEDS: ATORVASTATIN 40 MG TABLET FEED TUBE (09:25)
[2020-06-04] MEDS: SEVELAMER CARBONATE 800 MG TABLET FEED TUBE (09:26)
[2020-06-04] MEDS: CLOPIDOGREL BISULFATE 75 MG TABLET FEED TUBE (09:26)
[2020-06-04] MEDS: FERROUS SULFATE LIQUID 325 MG/7.4 ML ELIXIR 220 MG FEED TUBE (09:26)
[2020-06-04] MEDS: traMADol HCL (*CRX) 50 MG TABLET PO ×2 (09:27→21:16)
--- NOTE | 2020-06-04 10:14 | P.PNNP_ITS ---
Progress Note: A&P Assessment and Plan (1) End stage renal disease: Code(s): N18.6 - End stage renal disease Status: Chronic Assessment and Plan: * HD today. * Remove some fluid as directed. * Potassium doing okay. (2) Volume overload: Qualifiers: Hypervolemia type: other Qualified Code(s): E87.79 - Other fluid overload Code(s): E87.70 - Fluid overload, unspecified Status: Acute Assessment and Plan: * as noted by imaging studies * Had dry ultrafiltration yesterday. * further fluid removal with HD today (3) Pneumonia: Qualifiers: Laterality: bilateral Lung location: unspecified part of lung Pneum onia type: due to unspecified organism Qualified Code(s): J18.9 - Pneumonia, unspecified organism Code(s): J18.9 - Pneumonia, unspecified organism Status: Acute Assessment and Plan: * suggestion by admission imaging * repeat CXR after fluid removal to reassess * Chest x-ray order is in. (4) Hypertension: Qualifiers: Hypertension type: essential hypertension Qualified Code(s): I10 - Essential (primary) hypertension Code(s): I10 - Essential (primary) hypertension Status: Chronic Assessment and Plan: * Blood pressure doing well this morning. (5) Sacral wound: Qualifiers: Encounter type: initial encounter Qualified Code(s): S31.000A - Unspecified open wound of lower back and pelvis without penetration into retroperitoneum, initial encounter Code(s): S31.000A - Unspecified open wound of lower back and pelvis without penetration into retroperitoneum, initial encounter Status: Acute Assessment and Plan: * noted with wound vac in place * PICC line in place for antibiotics * White count improved. * Id on board (6) Anemia: Code(s): D64.9 - Anemia, unspecified Status: Chronic Assessment and Plan: * due to ESRD, acute illness, and inflammation (from sacral wound?) * Epogen with HD * no need for iron at this point because of the infection. Subjective Date/time seen: 06/04/20 10:14 Interval history: Patient is sleepy. Wakens easily. No chest pain or shortness of breath. Due for dialysis later today Review of Systems Cardiovascular: Cardiovascular: Reports no additional cardiovascular complaints Respiratory: Respiratory: Reports no additional respiratory complaints Gastrointestinal: Gastrointestinal: Reports no additional gastrointestinal complaints Genitourinary: Genitourinary: Reports no additional female genitourinary complaints Exam Narrative: Exam Narrative: WDWN in NAD skin no rash or subcu nodules head ncat lungs clear cor reg no rub abd BS+ nontender and soft ext no edema. Objective Data Vital Signs Vital Signs: Vital Signs - 24 hr 06/03/20 10:15 06/03/20 11:11 06/03/20 11:29 Temperature 36.3 C L Pulse Rate 93 87 83 Respiratory Rate 20 18 Blood Pressure 191/70 H 173/70 H Pulse Oximetry 97 100 06/03/20 12:56 06/03/20 13:08 06/03/20 13:28 Temperature Pulse Rate 85 88 Respiratory Rate 18 30 H Blood Pressure 176/85 H 174/62 H Pulse Oximetry 99 99 100 06/03/20 14:36 06/03/20 16:00
--- NOTE | 2020-06-04 10:14 | PM.PNNEP ---
Progress Note: A&P Assessment and Plan (1) End stage renal disease: Code(s): N18.6 - End stage renal disease Status: Chronic Assessment and Plan: HD today. Remove some fluid as directed. Potassium doing okay. (2) Volume overload: Qualifiers: Hypervolemia type: other Qualified Code(s): E87.79 - Other fluid overload Code(s): E87.70 - Fluid overload, unspecified Status: Acute Assessment and Plan: as noted by imaging studies Had dry ultrafiltration yesterday. further fluid removal with HD today (3) Pneumonia: Qualifiers: Laterality: bilateral Lung location: unspecified part of lung Pneumonia type: due to unspecified organism Qualified Code(s): J18.9 - Pneumonia, unspecified organism Code(s): J18.9 - Pneumonia, unspecified organism Status: Acute Assessment and Plan: suggestion by admission imaging repeat CXR after fluid removal to reassess Chest x-ray order is in. (4) Hypertension: Qualifiers: Hypertension type: essential hypertension Qualified Code(s): I10 - Essential (primary) hypertension Code(s): I10 - Essential (primary) hypertension Status: Chronic Assessment and Plan: Blood pressure doing well this morning. (5) Sacral wound: Qualifiers: Encounter type: initial encounter Qualified Code(s): S31.000A - Unspecified open wound of lower back and pelvis without penetration into retroperitoneum, initial encounter Code(s): S31.000A - Unspecified open wound of lower back and pelvis without penetration into retroperitoneum, initial encounter Status: Acute Assessment and Plan: noted with wound vac in place PICC line in place for antibiotics White count improved. Id on board (6) Anemia: Code(s): D64.9 - Anemia, unspecified Status: Chronic Assessment and Plan: due to ESRD, acute illness, and inflammation (from sacral wound?) Epogen with HD no need for iron at this point because of the infection. Subjective Date/time seen: 06/04/20 10:14 Interval history: Patient is sleepy. Wakens easily. No chest pain or shortness of breath. Due for dialysis later today Review of Systems Cardiovascular: Cardiovascular: Reports no additional cardiovascular complaints Respiratory: Respiratory: Reports no additional respiratory complaints Gastrointestinal: Gastrointestinal: Reports no additional gastrointestinal complaints Genitourinary: Genitourinary: Reports no additional female genitourinary complaints Exam Narrative: Exam Narrative: WDWN in NAD skin no rash or subcu nodules head ncat lungs clear cor reg no rub abd BS+ nontender and soft ext no edema. Objective Data Vital Signs Vital Signs: Vital Signs - 24 hr 06/03/20 10:15 06/03/20 11:11 06/03/20 11:29 Temperature 36.3 C L Pulse Rate 93 87 83 Respiratory Rate 20 18 Blood Pressure 191/70 H 173/70 H Pulse Oximetry 97 100 06/03/20 12:56 06/03/20 13:08 06/03/20 13:28 Temperature Pulse Rate 85 88 Respiratory Rate 18 30 H Blood Pressure 176/85 H 174/62 H Pulse Oximetry 99 99 100 06/03/20 14:36 06/03/20 16:00 06/03/20 17:30 Temperature 37.1 C Pulse Rate 85 90 Respiratory Rate 19 14 Blood Pressure 175/61 H 150/94 H Pulse Oximetry 100 98 79 L 06/03/20 18:40 06/03/20 18:46 06/03/20 19:00 Temperature 37.0 C Pulse Rate 88 86 86 Respiratory Rate 20 Blood Pressure 198/76 H 195/71 H 209/76 H Pulse Oximetry 06/03/20 19:15 06/03/20 19:30 06/03/20 19:45 Temperature Pulse Rate 85 85 84 Respiratory Rate Blood Pressure 198/70 H 195/69 H 179/62 H Pulse Oximetry 06/03/20 20:00 06/03/20 20:15 06/03/20 20:30 Temperature Pulse Rate 83 82 81 Respiratory Rate 20 Blood Pressure 171/61 H 160/57 H 154/49 H Pulse Oximetry 99 06/03/20 20:45 06/03/20 21:00 06/03/20 21:16 Temperatu
[2020-06-04 13:06] LABS: Glucose Point of Care 72 (65-105)
--- NOTE | 2020-06-04 15:08 | WPDINFPN2 ---
Progress Note: A&P Assessment and Plan (1) Sacral wound: Qualifiers: Encounter type: initial encounter Qualified Code(s): S31.000A - Unspecified open wound of lower back and pelvis without penetration into retroperitoneum, initial encounter Code(s): S31.000A - Unspecified open wound of lower back and pelvis without penetration into retroperitoneum, initial encounter Status: Acute Assessment and Plan: Sacral decubitus ulcer, on treatment prior to admission with IV antibiotics per daughter (not under my supervision) REC Get current info from her [facility]. [facility] for now, change to her home regimen once available from [facility]. I will not follow after discharge. Subjective Date/time seen: 06/04/20 15:08 Objective Data Vital Signs Vital Signs: Vital Signs - 24 hr 06/03/20 16:00 06/03/20 17:30 06/03/20 18:40 Temperature 37.1 C 37.0 C Pulse Rate 90 88 Respiratory Rate 14 20 Blood Pressure 150/94 H 198/76 H Pulse Oximetry 98 79 L 06/03/20 18:46 06/03/20 19:00 06/03/20 19:15 Temperature Pulse Rate 86 86 85 Respiratory Rate Blood Pressure 195/71 H 209/76 H 198/70 H Pulse Oximetry 06/03/20 19:30 06/03/20 19:45 06/03/20 20:00 Temperature Pulse Rate 85 84 83 Respiratory Rate Blood Pressure 195/69 H 179/62 H 171/61 H Pulse Oximetry 06/03/20 20:15 06/03/20 20:30 06/03/20 20:45 Temperature Pulse Rate 82 81 87 Respiratory Rate 20 Blood Pressure 160/57 H 154/49 H 178/69 H Pulse Oximetry 99 06/03/20 21:00 06/03/20 21:16 06/03/20 21:25 Temperature 36.8 C Pulse Rate 81 81 84 Respiratory Rate 18 Blood Pressure 167/57 H 189/75 H 203/66 H Pulse Oximetry 06/03/20 21:40 06/04/20 00:00 06/04/20 00:25 Temperature 36.8 C 36.6 C Pulse Rate 85 85 Respiratory Rate 20 18 Blood Pressure 156/69 H 137/73 Pulse Oximetry 100 96 99 06/04/20 02:00 06/04/20 04:00 06/04/20 06:02 Temperature 36.7 C Pulse Rate 80 87 Respiratory Rate 18 Blood Pressure 122/47 L Pulse Oximetry 100 98 06/04/20 08:00 06/04/20 12:00 Temperature Pulse Rate 88 88 Respiratory Rate Blood Pressure Pulse Oximetry Intake/Output Intake/Output: Intake & Output 06/01/20 06/02/20 06/03/20 06/04/20 23:59 23:59 23:59 23:59 Intake Total 0 400 Output Total 2500 Balance -2500 400 Meds/Results Medications: Active Medications Generic Name Dose Route Start Last Admin Trade Name Freq PRN Reason Stop Dose Admin Albuterol 2 puff 06/03/20 20:57 Albuterol Sulfate (*Sp) Aerosol 1 Puff INHALATION QIDRT PRN Shortness Of Breath Atorvastatin Calcium 40 mg 06/04/20 09:00 06/04/20 09:25 Atorvastatin 40 Mg Tablet FEED TUBE 40 mg DAILY GEOVANNA Administration Clopidogrel Bisulfate 75 mg 06/04/20 09:00 06/04/20 09:26 Clopidogrel Bisulfate 75 Mg Tablet FEED TUBE 75 mg DAILY GEOVANNA Administration Dextrose 12.5 gm 06/03/20 20:55 Dextrose 50% 25 Gm/50 Ml Syringe IV PUSH PRN PRN Hypoglycemia Protocol Diltiazem HCl 30 mg 06/03/20 21:00 06/03/20 22:00 Diltiazem Hcl 30 Mg Tablet FEED TUBE 30 mg HS GEOVANNA Administration Enoxaparin Sodium 30 mg 06/04/20 09:00 Enoxaparin 30 Mg/0.3 Ml Syringe SUB-Q DAILY GEOVANNA Epoetin Calvin-epbx 10,000 units 06/04/20 19:18 Epoetin Calvin-Epbx 10,000 Units/Ml Vial IV PUSH 06/04/20 19:19 ONCE ONE Glucagon 1 mg 06/03/20 20:55 Glucagon For Inj 1 Mg Vial IM PRN PRN Hypoglycemia Protocol Glucose 15 gm 06/03/20 20:55 Glucose Oral Gel 15 Gm Of Glucse In 37.5 Gm Tube PO PRN PRN Hypoglycemia Protocol Albumin Human 50 mls @ 999 mls/hr 06/03/20 16:14 Albutein IVPB 07/03/20 16:15 Q10M PRN HYPOTENSION Dextrose 1,000 mls @ 100 mls/hr 06/03/20 20:55 Dextrose 5% 1,000 Ml IVPB PRN PRN Hypoglycemia Protocol Piperacillin Sod/Tazobactam Sod 2.25 gm in 50 mls @ 100 mls/hr 06/04/20 09:00 10
[2020-06-04] MEDS: EPOETIN ALFA-EPBX 10,000 UNITS/ML VIAL 10000 UNITS IV PUSH (16:39)
--- NOTE | 2020-06-04 16:41 | PM.IMPN ---
Progress Note: A&P Assessment and Plan (1) Volume overload: Qualifiers: Hypervolemia type: other Qualified Code(s): E87.79 - Other fluid overload Code(s): E87.70 - Fluid overload, unspecified Status: Acute Assessment and Plan: -----to end-stage renal disease and better today. She has done dialysis yesterday and today and her respiratory symptoms have improved. They got 2500 mL of fluid out with yesterday's dialysis and she is still getting dialysis today. Pneumonia seems less likely since she has been on Zosyn. Will repeat chest x-ray tomorrow. COVID negative (2) Acute respiratory failure: Qualifiers: Respiratory failure complication: hypoxia Qualified Code(s): J96.01 - Acute respiratory failure with hypoxia Code(s): J96.00 - Acute respiratory failure, unspecified whether with hypoxia or hypercapnia Status: Acute Assessment and Plan: ----- most likely due to volume overload the patient's end-stage renal disease. The patient does have some leukocytosis I suspect this is due to her chronic sacral decubitus ulcer. pneumonia much less likely. COVID negative. Off oxygen (3) Sacral wound: Qualifiers: Encounter type: initial encounter Qualified Code(s): S31.000A - Unspecified open wound of lower back and pelvis without penetration into retroperitoneum, initial encounter Code(s): S31.000A - Unspecified open wound of lower back and pelvis without penetration into retroperitoneum, initial encounter Status: Acute Assessment and Plan: -----continue Zosyn, patient states that she takes 2.25 mg every 12 hours and follows with a doctor in [place] who she cannot remember the name. (4) End stage renal disease: Code(s): N18.6 - End stage renal disease Status: Chronic Assessment and Plan: -----management per Nephrology (5) Hypertension: Qualifiers: Hypertension type: essential hypertension Qualified Code(s): I10 - Essential (primary) hypertension Code(s): I10 - Essential (primary) hypertension Status: Chronic Assessment and Plan: -----blood pressure has been running high it specially and dialysis. It looks like she is on Cardizem HS (home med). I will do hydralazine p.r.n. and watch her trends. She continues run high, may need to start additional medications. (6) Abnormal CT of the chest: Code(s): R93.89 - Abnormal findings on diagnostic imaging of other specified body structures Status: Acute Assessment and Plan: -----Will need repeat imaging outpt Time Spent With Patient Time with patient: 25 - 35 minutes Subjective Date/time seen: 06/04/20 16:41 Interval history: Patient is a 74-year-old female here for shortness of breath who was seen today. The patient states she is feeling a lot better. She was in dialysis had no complaints of chest pain, cough, or shortness of breath. She says she feels a lot better since coming in here. She cannot remember who her doctor is who prescribes her antibiotic for her wound Review of Systems Review of Systems: All systems reviewed & are unremarkable except as noted in HPI and below Exam Narrative: Exam Narrative: General: Elderly patient resting comfortably in dialysis in no acute distress HEENT: normocephalic Neck: supple Neuro: Alert and oriented to herself, place, president and situation but for got the year CV:RRR with systolic murmur correlating with her dialysis fistula Resp: Crackles in both lungs Abd: Soft, non distended. No pain to palpation. Positive bowel sounds Extremities: No swelling, erythema, or pain to palpation. Since the patient was in dialysis I did not roll her to look at her wound, please see wound care note for details Objective Data Vital Signs Vital Signs: Vital Signs - 24 hr 06/03/20 17:30 06/03/20 18:40 06/03/20 18:46 Temperature 98.6 F Puls
[2020-06-04 18:21] LABS: Glucose Point of Care 107 (65-105)
--- NOTE | 2020-06-04 20:49 | CONS_ITS ---
DATE OF CONSULTATION: 06/04/2020 REASON FOR CONSULTATION: Sacral decubitus. HISTORY OF PRESENT ILLNESS: A 74-year-old female, who is a very poor historian. She reports a decubitus ulcer over the sacrum, which appeared after and during treatment for acute parr virus infection in December 2019 and thereafter. She reports that a IV catheter has been present in her left upper extremity for about 2 weeks. I talked with the daughter on the phone, with the patient's permission, and the daughter reports IV antibiotics being administered on the orders of a talent management specialist. Further details not available. The patient was brought to the hospital here yesterday with shortness of breath, which is now improved with 2 treatments of hemodialyses. The patient has had no fevers, rigors, sweats. A wound VAC has been in place to the sacral decubitus. She has not required any operative intervention. ALLERGIES: NONE KNOWN. PRESENT MEDICATIONS: List reviewed, no immunosuppressants. HABITS: No tobacco. No alcohol. PAST MEDICAL HISTORY: Previous tracheostomy and PEG, now removed, dialysis catheter, cataract extractions, hypertension, hyperlipidemia, glaucoma, GERD, type 2 diabetes mellitus, diastolic dysfunction, previous stroke, and fistula. REVIEW OF SYSTEMS: Limited by the patient's memory. A 14-point review otherwise negative. She makes little urine. FAMILY HISTORY: Not pertinent to her present illness. SOCIAL HISTORY: She lives locally. She has a daughter who helps with her care. Three children did not work outside the home. PHYSICAL EXAMINATION: GENERAL: This is a cachectic female. No respiratory distress, on hemodialysis presently. VITAL SIGNS: Afebrile since arrival yesterday, 122/47, 87, 18, 98%. SKIN: Warm and dry. No generalized rash. EENT: The conjunctivae appear clear, little charmaine. Poor dentition. Mucous membranes are dry. NECK: No masses or thyromegaly. LUNGS: Diminished breath sounds, otherwise clear to auscultation and percussion. CARDIAC: Regular rate and rhythm. Soft S1, S2. ABDOMEN: Scaphoid, nontender. No masses. No organomegaly. EXTREMITIES: Muscle wasting. No clubbing, cyanosis, or edema. LABORATORY DATA: White count 14.5, hemoglobin 7.8, platelets are 260. No differential done today. Yesterday showed mild monocytosis. Blood gases 7.34, 44, 83 that is from December 22. Chemistry panel normal except for BUN 93, creatinine 6.0, and chloride of 97. AST 41, ALT 12, alkaline phosphatase 213. BNP 16,300. Coronavirus assay nonreactive. Blood cultures, no growth after 1 day's incubation. RADIOLOGICAL DATA: Chest x-ray and chest CTA show suspected pulmonary edema versus pneumonia, lymphadenopathy, emphysema, pleural effusions, no PE. ASSESSMENT: 1. Shortness of breath suspect due to fluid overload. 2. Sacral decubitus ulcer on treatment prior to admission. Unclear what the surgical treatment up until now has been. 3. Mild leukocytosis, suspect reactive. RECOMMENDATIONS: 1. Piperacillin day #2 appropriate. 2. Records from her home health company and adjust her antibiotic to that had been given prior to admission. 3. I will not follow once she is discharged from the hospital, rather we will turn back over to her treating physician. Thank you very much for asking me see her. MELINDA ODOM M.D. PRECISION INSTRUMENT MAKER AND REPAIRER PRECISION INSTRUMENT MAKER AND REPAIRER D I MT: Niko
[2020-06-04] MEDS: INSULIN GLARGINE (*BKC) 100 UNITS/ML 18 UNITS SUB-Q (21:13)
[2020-06-04] MEDS: dilTIAZem HCL 30 MG TABLET FEED TUBE (21:14)
[2020-06-04] MEDS: CENTRAL LINE FLUSH 10 ML IV PUSH (21:15)
[2020-06-04 21:31] LABS: Glucose Point of Care 156 (65-105)
[2020-06-05 00:26] LABS: Glucose Point of Care 148 (65-105)
[2020-06-05 05:12] LABS: Hemoglobin 8.3 g/dL (12.0-15.0); Mean Corpuscular HGB Conc 29.6 g/dl (32-36); Mean Corpuscular Hemoglobin 27.9 pg (26-34); Mean Corpuscular Volume 94.3 fl (80-100); Platelet Count Result 247 k/mm3 (150-375); Red Blood Count 2.97 M/mm3 (4.2-5.4); Red Cell Distribution Width 18.4 % (11.5-14.5); White Blood Count 15.1 K/mm3 (4.5-10.0)
[2020-06-05 05:30] LABS: Albumin Level 3.3 g/dL (3.5-5.1); Anion Gap 9 mmol/L (8-16); Blood Urea Nitrogen 46 mg/dL (7-17); Calcium 9.1 mg/dL (8.4-10.2); Carbon Dioxide 33 mmol/L (22-30); Chloride 98 mmol/L (98-107); Estimated CRCL calculation 13 ml/min; Estimated Glomerular Filt Rate 15; Glucose 133 mg/dL (65-105); Phosphorus 4.6 mg/dL (2.5-4.5); Potassium 3.7 mmol/L (3.4-5.0); Sodium 140 mmol/L (137-145)
[2020-06-05 05:59] LABS: Iron 40 ug/dL (37-170)
[2020-06-05 06:00] VITALS: BP 138/49; PULSE 89; RESP 16; TEMP 37; O2SAT 97
[2020-06-05] MEDS: CENTRAL LINE FLUSH 10 ML IV PUSH ×2 (06:01→13:29)
[2020-06-05 06:09] LABS: Percent Iron Saturation 15 % (20-50)
[2020-06-05 06:43] LABS: Glucose Point of Care 132 (65-105)
[2020-06-05 08:00] VITALS: PULSE 89; RESP 16; O2SAT 97
--- NOTE | 2020-06-05 09:57 | P.PNNP_ITS ---
Progress Note: A&P Assessment and Plan (1) End stage renal disease: Code(s): N18.6 - End stage renal disease Status: Chronic Assessment and Plan: * HD sunday,. * volume status looks okay * cxr looks pretty good to my eye. official reading pending. * Potassium doing okay. (2) Volume overload: Qualifiers: Hypervolemia type: other Qualified Code(s): E87.79 - Other fluid overload Code(s): E87.70 - Fluid overload, unspecified Status: Acute Assessment and Plan: * as noted by imaging studies * Had dry ultrafiltration yesterday. * further fluid removal with HD today (3) Pneumonia: Qualifiers: Laterality: bilateral Lung location: unspecified part of lung Pneumonia type: due to unspecified organism Qualified Code(s): J18.9 - Pneumonia, unspecified organism Code(s): J18.9 - Pneumonia, unspecified organism Status: Acute Assessment and Plan: * fluid status looks better * (4) Hypertension: Qualifiers: Hypertension type: essential hypertension Qualified Code(s): I10 - Essential (primary) hypertension Code(s): I10 - Essential (primary) hypertension Status: Chronic Assessment and Plan: * Blood pressure doing well this morning. (5) Sacral wound: Qualifiers: Encounter type: initial encounter Qualified Code(s): S31.000A - Unspecified open wound of lower back and pelvis without penetration into retroperitoneum, initial encounter Code(s): S31.000A - Unspecified open wound of lower back and pelvis without penetration into retroperitoneum, initial encounter Status: Acute Assessment and Plan: * noted with wound vac in place * PICC line in place for antibiotics * White count improved. * Id on board (6) Anemia: Code(s): D64.9 - Anemia, unspecified Status: Chronic Assessment and Plan: * due to ESRD, acute illness, and inflammation (from sacral wound?) * hb stable in the 8s * Epogen with HD * no need for iron at this point because of the infection. Subjective Date/time seen: 06/05/20 09:57 Interval history: Patient is more awake. getting a venous doppler had a cxr Due for dialysis later today Review of Systems Cardiovascular: Cardiovascular: Reports no additional cardiovascular complaints Respiratory: Respiratory: Reports no additional respiratory complaints Gastrointestinal: Gastrointestinal: Reports no additional gastrointestinal complaints Genitourinary: Genitourinary: Reports no additional female genitourinary complaints Exam Narrative: Exam Narrative: WDWN in NAD skin no rash or subcu nodules head ncat lungs clear cor reg no rub abd BS+ nontender and soft ext no edema. no cyanosis. Objective Data Vital Signs Vital Signs: Vital Signs - 24 hr 06/04/20 12:00 06/04/20 14:00 06/04/20 14:05 Temperature 36.7 C Pulse Rate 88 60 92 Respiratory Rate 18 Blood Pressure 110/68 192/80 H Pulse Oximetry 96 06/04/20 14:15 06/04/20 14:30 06/04/20 14:45 Temperature Pulse Rate 92 91 91 Respiratory Rate Blood Pressure 191/80 H 183/75 H 184/77 H Pulse Oximetry 06/04/20 15:00 06/04/20 15:15 06/04/20
--- NOTE | 2020-06-05 09:57 | PM.PNNEP ---
Progress Note: A&P Assessment and Plan (1) End stage renal disease: Code(s): N18.6 - End stage renal disease Status: Chronic Assessment and Plan: HD sunday,. volume status looks okay cxr looks pretty good to my eye. official reading pending. Potassium doing okay. (2) Volume overload: Qualifiers: Hypervolemia type: other Qualified Code(s): E87.79 - Other fluid overload Code(s): E87.70 - Fluid overload, unspecified Status: Acute Assessment and Plan: as noted by imaging studies Had dry ultrafiltration yesterday. further fluid removal with HD today (3) Pneumonia: Qualifiers: Laterality: bilateral Lung location: unspecified part of lung Pneumonia type: due to unspecified organism Qualified Code(s): J18.9 - Pneumonia, unspecified organism Code(s): J18.9 - Pneumonia, unspecified organism Status: Acute Assessment and Plan: fluid status looks better (4) Hypertension: Qualifiers: Hypertension type: essential hypertension Qualified Code(s): I10 - Essential (primary) hypertension Code(s): I10 - Essential (primary) hypertension Status: Chronic Assessment and Plan: Blood pressure doing well this morning. (5) Sacral wound: Qualifiers: Encounter type: initial encounter Qualified Code(s): S31.000A - Unspecified open wound of lower back and pelvis without penetration into retroperitoneum, initial encounter Code(s): S31.000A - Unspecified open wound of lower back and pelvis without penetration into retroperitoneum, initial encounter Status: Acute Assessment and Plan: noted with wound vac in place PICC line in place for antibiotics White count improved. Id on board (6) Anemia: Code(s): D64.9 - Anemia, unspecified Status: Chronic Assessment and Plan: due to ESRD, acute illness, and inflammation (from sacral wound?) hb stable in the 8s Epogen with HD no need for iron at this point because of the infection. Subjective Date/time seen: 06/05/20 09:57 Interval history: Patient is more awake. getting a venous doppler had a cxr Due for dialysis later today Review of Systems Cardiovascular: Cardiovascular: Reports no additional cardiovascular complaints Respiratory: Respiratory: Reports no additional respiratory complaints Gastrointestinal: Gastrointestinal: Reports no additional gastrointestinal complaints Genitourinary: Genitourinary: Reports no additional female genitourinary complaints Exam Narrative: Exam Narrative: WDWN in NAD skin no rash or subcu nodules head ncat lungs clear cor reg no rub abd BS+ nontender and soft ext no edema. no cyanosis. Objective Data Vital Signs Vital Signs: Vital Signs - 24 hr 06/04/20 12:00 06/04/20 14:00 06/04/20 14:05 Temperature 36.7 C Pulse Rate 88 60 92 Respiratory Rate 18 Blood Pressure 110/68 192/80 H Pulse Oximetry 96 06/04/20 14:15 06/04/20 14:30 06/04/20 14:45 Temperature Pulse Rate 92 91 91 Respiratory Rate Blood Pressure 191/80 H 183/75 H 184/77 H Pulse Oximetry 06/04/20 15:00 06/04/20 15:15 06/04/20 15:30 Temperature Pulse Rate 88 93 89 Respiratory Rate Blood Pressure 163/66 H 169/73 H 155/66 H Pulse Oximetry 06/04/20 15:45 06/04/20 16:00 06/04/20 16:15 Temperature Pulse Rate 90 87 89 Respiratory Rate Blood Pressure 153/65 H 157/67 H 168/70 H Pulse Oximetry 06/04/20 16:30 06/04/20 16:41 06/04/20 16:45 Temperature 36.9 C Pulse Rate 87 92 87 Respiratory Rate 16 Blood Pressure 156/58 H 195/73 H 148/61 H Pulse Oximetry 06/04/20 17:00 06/04/20 17:08 06/04/20 17:12 Temperature 36.8 C Pulse Rate 92 91 92 Respiratory Rate 18 Blood Pressure 139/57 L 146/64 H 177/67 H Pulse Oximetry 06/04/20 22:00 06/05/20 06:00 Temperature 37.1 C 37.0 C Pulse Rate 91
[2020-06-05] MEDS: CLOPIDOGREL BISULFATE 75 MG TABLET FEED TUBE (10:15)
[2020-06-05] MEDS: ATORVASTATIN 40 MG TABLET FEED TUBE (10:16)
[2020-06-05] MEDS: SEVELAMER CARBONATE 800 MG TABLET FEED TUBE (10:16)
[2020-06-05] MEDS: CHOLECALCIFEROL 1,000 UNITS TABLET 1000 UNITS FEED TUBE (10:16)
[2020-06-05] MEDS: traMADol HCL (*CRX) 50 MG TABLET PO (10:21)
[2020-06-05 12:52] LABS: Glucose Point of Care 130 (65-105)
--- NOTE | 2020-06-05 13:56 | ADMGEN ---
This patient, Suzanne Cast, was admitted to 3 [facility] Surg Room 323-2 @ 1510 on 06/03/20. Patient/family oriented to hospital policies and general routines including ID bracelet, bed and alarms, visiting hours, pain management, procedures, bathroom and other care routines, personal items, smoking policy, room service/diet, and visiting hours. Information on how to activate the Rapid Response Team has been discussed. Patient/Family are encouraged to report perceived risks to care and to ask questions if they do not understand what they are told or what they should do.
[2020-06-05 14:00] VITALS: BP 146/57; PULSE 92; RESP 22; TEMP 37.1; O2SAT 93
--- NOTE | 2020-06-05 14:24 | PM.DS ---
DS: Admitting Diagnosis Admitting Diagnosis Admitting Diagnosis: shortness of breath DS: Discharge Diagnosis Discharge Diagnosis (1) Volume overload: Qualifiers: Hypervolemia type: other Qualified Code(s): E87.79 - Other fluid overload Code(s): E87.70 - Fluid overload, unspecified Status: Acute Assessment and Plan: -----likely due to end-stage renal disease. Pt had recently changed to dialysis 2x a week instead of 3. She started to get short of breath and improved after 2 days of dialysis in a row. She got a total of 5500mls of fluid out and her symptoms resolved clinically. Repeat CXR showed improvement and thought to be edema vs infection. I do believe this is edema and infx seems less likely. She has an elevated WBC but is currently being treated for sacral wound. She has not had any fevers and her symptoms improved with dialysis. No additional abx indicated at this time but will continue home zosyn. COVID negative. Pt is going to go back to dialysis 3x a week instead of two to help minimize hospitalizations. (2) Acute respiratory failure: Qualifiers: Respiratory failure complication: hypoxia Qualified Code(s): J96.01 - Acute respiratory failure with hypoxia Code(s): J96.00 - Acute respiratory failure, unspecified whether with hypoxia or hypercapnia Status: Acute Assessment and Plan: ----- most likely due to volume overload the patient's end-stage renal disease as detailed above. The patient does have some leukocytosis I suspect this is due to her chronic sacral decubitus ulcer. pneumonia much less likely. COVID negative. Off oxygen (3) Sacral wound: Qualifiers: Encounter type: initial encounter Qualified Code(s): S31.000A - Unspecified open wound of lower back and pelvis without penetration into retroperitoneum, initial encounter Code(s): S31.000A - Unspecified open wound of lower back and pelvis without penetration into retroperitoneum, initial encounter Status: Acute Assessment and Plan: -----continue Zosyn, patient states that she takes 2.25 mg every 12 hours and follows with a doctor in [place] (4) End stage renal disease: Code(s): N18.6 - End stage renal disease Status: Chronic Assessment and Plan: -----management per Nephrology (5) Hypertension: Qualifiers: Hypertension type: essential hypertension Qualified Code(s): I10 - Essential (primary) hypertension Code(s): I10 - Essential (primary) hypertension Status: Chronic Assessment and Plan: -----Last bp 146/57, continue Cardizem HS (home med). (6) Abnormal CT of the chest: Code(s): R93.89 - Abnormal findings on diagnostic imaging of other specified body structures Status: Acute Assessment and Plan: ---- I spoke to daughter Suze Cast about enlarged lymph node and abnormal cbcw/ diff. Plan to repeat imaging and CBC in one month (after off all abx). I am going to call Dr. Atkinson about this as well. Concern for lymphoma but could be reactive. DS: Summary Hospital Course Reason for hospitalization: SOB Hospital Course: And patient is a 74-year-old female who presented emergency room after altered breathing noted by home health services and shortness of breath. Vitals in the ER were temperature 36.3? C, pulse 93, respiratory rate 20, blood pressure 191/70, pulse ox 97. Initial white blood cell count 18.1, hemoglobin 8.1, hematocrit 27.5, platelets 303. EKG showed normal rate with normal rhythm. To 79% and she was started on oxygen. CTA showed no pulmonary Emboli with diffuse lung disease consistent with pneumonia or pulmonary edema with small pleural effusions and chest lymphadenopathy which may be lymphadenopathy that is reactive or malignancy. [facility] She underwent treatment 2 days in a row and pulled
--- NOTE | 2020-06-11 11:45 | PC.NURSE ---
Blood cx show no growth.
== END 2020-06-05 17:15 | disposition home health service (06) | DRG 640 ==
LOC: ANHED 10:19 → ANH3MEDSUR 13:27
PROVIDERS: Internal Medicine; Internal Medicine Nephrology; Admitting Provider Internal Medicine; Emergency Provider Emergency Medicine; PCP Internal Medicine Infectious Disease; Visit Provider Physician Assistant
DX: E87.79 Other fluid overload (principal); L89.154 Pressure ulcer of sacral region, stage 4; N18.6 End stage renal disease; J96.01 Acute respiratory failure with hypoxia; I12.0 Hypertensive chronic kidney disease with stage 5 chronic kidney disease or end stage renal disease; Z86.19 Personal history of other infectious and parasitic diseases; Z20.828 Contact with and (suspected) exposure to other viral communicable diseases; D63.1 Anemia in chronic kidney disease; E11.22 Type 2 diabetes mellitus with diabetic chronic kidney disease; R93.89 Abnormal findings on diagnostic imaging of other specified body structures; E78.5 Hyperlipidemia, unspecified; D72.829 Elevated white blood cell count, unspecified; H40.9 Unspecified glaucoma; K21.9 Gastro-esophageal reflux disease without esophagitis; Z86.73 Personal history of transient ischemic attack (TIA), and cerebral infarction without residual deficits; Z98.42 Cataract extraction status, left eye; Z98.41 Cataract extraction status, right eye; Z93.1 Gastrostomy status; Z99.2 Dependence on renal dialysis
CPT/HCPCS: 36415; 71045; 71046; 71275; 80048; 80053; 80069; 82728; 83540; 83550; 83880; 84443; 84484; 85025; 85027; 85380; 87040; 87635; 93005; 93970; 96365; 96374; 96375; 96376; 99285; A9270; C9803; G0257; G0378; J1815; J1940; J2543; J7030; Q5106; Q9967; U0003

== ENCOUNTER 2020-06-15 18:07 | Observation (INO) | payer MEDICARE, MEDICAID, SELFPAY ==
--- NOTE | ~2020-06-15 | XR_ITS ---
XR chest 1V DATE: 06/15/2020 19:23 INDICATION: Verify PICC line placement TECHNIQUE: AP chest on 06/15/2020 at 1920 hours COMPARISON: 06/05/2020 2 view chest FINDINGS: Left upper extremity PIC catheter tip overlies the superior cavoatrial junction approximate ly. No pneumothorax is evident. The lungs appear clear. There is a calcified pulmonary granuloma in the right lateral mid to lower marty ng. Normal heart size. Aortic arch calcification. No pleural effusion or pulmonary vascular congestion or pneumothorax. Right subclavian artery stent. Osteoarthritis of the left glenohumeral joint. Degenerative changes at the acromioclavicular joints. Surgical clips, right upper quadrant, consistent with cholecystectomy. IMPRESSION: Left upper extremity PIC catheter tip near superior cavoatrial junction Reviewed, dictated and finalized at location A. [facility] PING PONG TABLE IMPRESSION: Left upper extremity PIC catheter tip near superior cavoatrial junc tion
--- NOTE | ~2020-06-15 | CT_ITS ---
EXAMINATION: CT brain wo con DATE: 06/15/2020 22:17 INDICATION: Seizure TECHNIQUE: Computed tomography (CT) of the head was performed without intravenous contrast. The mA wa s adjusted according to patient size. Iterative reconstruction technique was employed. Exam dose: 60 5.33 mGy-cm total exam DLP. COMPARISON: 12/07/2015 CT brain FINDINGS: Prominent bilateral vertebral artery calcifications as well as basilar artery and bilateral carotid siphon and left supraclinoid internal carotid artery calcifications are noted. There is nonspecific prominent diminished attenuation of the subcortical and periventricular cerebral white matter, likely due to chronic small vessel ischemic changes. Chronic lacunar infarct is noted in the anteromedial aspect of the right thalamus. Suggestion of a ve ry small chronic lacunar infarct in the medial central left thalamus. No intracranial mass lesion or hemorrhage, midline shift or mass effect is detected. No subdural or e pidural hematoma. No orbital mass lesion. Included paranasal sinuses and mastoid air cells are normally developed and aerated. No fracture or bone destruction of the cranial vault is detected. IMPRESSION: Cerebral atherosclerosis and chronic small vessel ischemic changes of the cerebral white matter Chronic lacunar infarcts of the thalami No acute intracranial finding Reviewed, dictated and finalized at [facility] Reviewed, dictated and finalized at [facility]. [employer]
[2020-06-15 18:28] VITALS: BP 144/58; PULSE 88; RESP 18; TEMP 36.3; O2SAT 100
--- NOTE | 2020-06-15 18:39 | PC.NURSE ---
CXR ordered per verbal order Dr. Woods for picc line verification.
--- NOTE | 2020-06-15 21:15 | ECG_ITS ---
Measurements Intervals [place] Rate: 89 P: 76 [place]: 178 QRS: 22 QRSD: 81 T: 56 QT: 381 QTc: 465 Interpretive Statements SINUS RHYTHM POSSIBLE LEFT ATRIAL ENLARGEMENT DELAYED PRECORDIAL R/S TRANSITION BORDERLINE ECG Electronically Signed On 06-16-2020 8:38:41 COMMUNITY RESOURCE CONSULTANT by Bryan Monson D.O.
--- NOTE | 2020-06-15 21:23 | ED.AMS ---
HPI - Altered Mental Status General Chief Complaint: Altered Mental Status Stated Complaint: shaky, altered mental status Time Seen by Provider: 06/15/20 21:00 Source: family Mode of arrival: wheelchair Limitations: physical limitation History of Present Illness HPI narrative: This patient is a 74 year old female with history of ESRD on dialysis, CVA, g tube feeding who presents for home for evaluation of a possible seizure. Her daughter is at bedside to provide history. She reports patient had an episode in which she stared into space and she would not respond to verbal stimuli. She also reports she appeared to be shaking . This episode last approximately 20 minutes. Her daughter is unsure if she had a seizure, but she reports patient has no history of seizures. She reports patient is back at her baseline. She denies any other problems. She reports patient has been on IV antibiotics for 3 weeks to treat of decubitus ulcer, and the ulcer is healing appropriately. She denies fever, cough, vomiting, or signs of pain. Patient is bed bound after hospitalization for COVID months ago. Related Data Home Medications Medication Instructions Recorded Confirmed B complex-vitamin C-folic acid 1 tablet FEEDING TUBE DAILY 06/03/20 06/03/20 Lantus U-100 Insulin 18 unit SUBCUT HS 06/03/20 06/03/20 albuterol sulfate [Ventolin HFA] 2 puff INHALATION Q6H PRN 06/03/20 06/03/20 atorvastatin 40 mg FEEDING TUBE DAILY 06/03/20 06/03/20 cholecalciferol (vitamin D3) 1,000 unit FEEDING TUBE DAILY 06/03/20 06/03/20 clopidogrel 75 mg FEEDING TUBE DAILY 06/03/20 06/03/20 diltiazem HCl 30 mg FEEDING TUBE HS 06/03/20 06/03/20 enoxaparin 30 mg SUBCUT DAILY 06/03/20 06/03/20 ferrous sulfate 220 mg FEEDING TUBE DAILY 06/03/20 06/03/20 midodrine 5 mg PO 3XW 06/03/20 06/03/20 nut.tx.imp.renal fxn,lac-reduc See Rx Instructions .ROUTE .COMPLEX 06/03/20 06/03/20 sevelamer carbonate 0.8 g FEEDING TUBE DAILY 06/03/20 06/03/20 tramadol 1 mg PO BID 06/03/20 06/03/20 Allergies Allergy/AdvReac Type Severity Reaction Status Date / Time No Known Allergies Allergy Mild Verified 06/15/20 23:05 Review of Systems Review of Systems: ROS unobtainable: Yes unobtainable due to medical condition PMFSH Past Medical History Medical History AV fistula COVID-23 Dec 2019 requiring intubation and transfer to tertiary care for CRRT CVA (cerebral vascular accident) 2008 Diastolic dysfunction echocardiogram December 2019: EF 65-70%, moderately increased left ventricular wall thickness, grade 1 diastolic dysfunction, global longitudinal strain abnormal had 15.9, DM2 (diabetes mellitus, type 2) On long-acting insulin End-stage renal disease on hemodialysis Gastrointestinal tube in situ GERD (gastroesophageal reflux disease) Glaucoma Hyperlipidemia Hypertension Surgical History Surgical History History of bilateral cataract extraction S/P dialysis catheter insertion AV fistula right upper arm Status post insertion of percutaneous endoscopic gastrostomy (PEG) tube Status post tracheostomy with subsequent removal Family History Family History Mother Diabetes mellitus Hypertension Sibling Uterine cancer Social History Social History (Updated 06/16/20 @ 04:44 by Justyna Jay RN) Social History: She has 3 children. She lived at home alone until her diagnosis of COVID pneumonia in December 2019. Code status: Full code Durable power of senior attorney for healthcare: Suze Cast (daughter) Smoking status: Never smoker Alcohol intake: never Substance use: never Substance use type: does not use Living arrangements: with family Occupation/Education: retired Gender identity (if verbalized by the patient): Female Spiritual care concerns: No Agree to blood products: Yes
--- NOTE | 2020-06-15 22:07 | PC.NURSE ---
Pt to CT scan via stretcher.
[2020-06-15 22:12] LABS: Basophils Absolute Auto 0.1 K/mm3 (0.0-0.1); Basophils Percent Auto 0.5 % (0.2-1.2); Eosinophils Absolute Auto 0.8 K/mm3 (0-0.3); Eosinophils Percent Auto 5.5 % (0-4.4); Hematocrit 33.9 % (37.0-47.0); Hemoglobin 9.9 g/dL (12.0-15.0); Immature Granulocyte Absolute 0.07 K/mm3 (0.00-0.031); Immature Granulocyte Percent A 0.5 % (0-0.5); Lymphocytes Absolute Auto 5.48 K/mm3 (0.9-3.2); Lymphocytes Percent Auto 37.5 % (18.3-44.2); Mean Corpuscular HGB Conc 29.2 g/dl (32-36); Mean Corpuscular Hemoglobin 28.1 pg (26-34); Mean Corpuscular Volume 96.3 fl (80-100); Mean Platelet Volume 10.6 fl (7.4-10.4); Monocytes Absolute Auto 1.3 K/mm3 (0.1-0.6); Monocytes Percent Auto 8.5 % (2.6-8.5); Neutrophils Absolute Auto 6.9 K/mm3 (1.3-6.7); Neutrophils Percent Auto 47.5 % (45.5-73.1); Platelet Count Result 252 k/mm3 (150-375); Red Blood Count 3.52 M/mm3 (4.2-5.4); Red Cell Distribution Width 17.2 % (11.5-14.5); White Blood Count 14.6 K/mm3 (4.5-10.0)
[2020-06-15 22:20] LABS: Alanine Aminotransferase 27 U/L (4-35); Albumin Level 3.8 g/dL (3.5-5.1); Alkaline Phosphatase 286 U/L (38-126); Anion Gap 11 mmol/L (8-16); Aspartate Amino Transferase 99 U/L (14-36); Bilirubin,Total 0.5 mg/dL (0.2-1.3); Blood Urea Nitrogen 56 mg/dL (7-17); Calcium 9.9 mg/dL (8.4-10.2); Carbon Dioxide 35 mmol/L (22-30); Chloride 96 mmol/L (98-107); Estimated Glomerular Filt Rate 13; Glucose 121 mg/dL (65-105); Magnesium 2.5 mg/dL (1.6-2.3); Potassium 3.8 mmol/L (3.4-5.0); Sodium 142 mmol/L (137-145)
[2020-06-15 22:46] LABS: Atypical Lymphocytes Present; Hypochromasia 1+ (NORMAL); Platelet Estimate Adequate (Adequate)
[2020-06-15 22:47] LABS: Large Platelets Present
[2020-06-15 23:03] VITALS: BP 169/47; PULSE 88; RESP 18; O2SAT 100
[2020-06-15 23:15] LABS: Add Urine Microscopic? YES; Appearance Urine Clear (Clear); Bilirubin Urine Negative (Negative); Blood Urine Negative (Negative); Color Urine Yellow (Yellow); Glucose Urine UA Negative (Negative); Ketones Urine Negative (Negative); Leukocyte Esterase Ur 2+ LEU/UL (Negative); Nitrate Urine Negative (Negative); Protein Urine 2+ mg/dL (Negative); RBC Urine 0-2 /hpf (0-2); Specific Grav Ur 1.013 (1.001-1.035); Squamous Epithelial Cell Urine Rare /hpf (Few); Urobilinogen Urine Negative mg/dL (<2.0)
[2020-06-15] MEDS: levETIRAcetam 1000MG/NACL100ML 1,000 MG/100 ML BAG 400 MG IVPB (23:44)
[2020-06-16] VITALS (23 sets, daily range): BP systolic 134–204; BP diastolic 50–83; PULSE 79–88; RESP 17–22; TEMP 36–37.3; O2SAT 96–100; BMI 26.3
--- NOTE | 2020-06-16 00:54 | PC.NURSE ---
noted pressure ulcer noted on buttocks, deep tissue open to air, cleaned and wet to dry dressing applied, [id number] wound.
--- NOTE | 2020-06-16 01:37 | PM.IMHP ---
H&P: HPI History of Present Illness Date/Time: 06/16/20 01:37 Chief complaint: possible seizure Narrative: This is a 74 year old female with end-stage renal disease, type 2 diabetes on insulin, prolonged hospitalization December 2019 due to respiratory failure from COVID- with subsequent sacral decubitus ulcer on Zosyn and most recently discharged from our hospital at the end of May. Tonight she was brought to the hospital for evaluation for altered mental status and a possible seizure. The patient's daughter mentions that they had just finished cleaning her up today when suddenly she became poorly responsive and exhibited shakiness of her hands. Her daughter states that the patient was poorly responsive and shaky for 10-20 minutes in duration. When she finally was responsive, she was completely alert and oriented and did not exhibit any confusion. She has no previous history of seizures or epilepsy. Her daughter checked her blood sugar and it was over 200 mg/dl. The patient has not had any focal neurological deficits. She did not lose urine or bite her tongue. The patient denies any headache, chest pain, shortness of breath, abdominal pain, nausea, vomiting, choking, diarrhea, or rectal bleeding. She appears to be back to her baseline according to her daughter. The patient has had significant debility following her prolonged hospitalization in December and cannot ambulate or stand. Her daughter reports that her ulcer is healing well. CT brain was obtained tonight and was unremarkable. ER provider has consulted Neurology, Dr. Ashley who has asked that we obtain an EEG, MRI of brain and he will evaluate the patient in am. Review of Systems Review of Systems: All systems reviewed & are unremarkable except as noted in HPI and below PMFSH Past Medical History Medical History AV fistula COVID-23 Dec 2019 requiring intubation and transfer to tertiary care for CRRT CVA (cerebral vascular accident) 2007 Diastolic dysfunction echocardiogram December 2019: EF 65-70%, moderately increased left ventricular wall thickness, grade 1 diastolic dysfunction, global longitudinal strain abnormal had 15.9, DM2 (diabetes mellitus, type 2) On long-acting insulin End-stage renal disease on hemodialysis Gastrointestinal tube in situ GERD (gastroesophageal reflux disease) Glaucoma Hyperlipidemia Hypertension Surgical History Surgical History History of bilateral cataract extraction S/P dialysis catheter insertion AV fistula right upper arm Status post insertion of percutaneous endoscopic gastrostomy (PEG) tube Status post tracheostomy with subsequent removal Family History Family History Mother Diabetes mellitus Hypertension Sibling Uterine cancer Social History Social History Social History: She has 3 children. She lived at home alone until her diagnosis of COVID pneumonia in December 2019. Code status: Full code Durable power of assistant attorney general for healthcare: Suze Cast (daughter) Smoking status: Never smoker Alcohol intake: never Substance use: never Substance use type: does not use Living arrangements: with family Occupation/Education: retired Gender identity (if verbalized by the patient): Female Spiritual care concerns: No Agree to blood products: Yes Meds Home Medications and Allergies Home Medications Medication Instructions Recorded Confirmed Type B complex-vitamin C-folic acid 1 tablet FEEDING TUBE DAILY 06/03/20 06/16/20 History Lantus U-100 Insulin 18 unit SUBCUT HS 06/03/20 06/16/20 History albuterol sulfate [Ventolin HFA] 2 puff INHALATION Q6H PRN 06/03/20 06/16/20 History atorvastatin 40 mg FEEDING TUBE DAILY 06/03/20 06/16/20 History cholecalciferol (vitamin D3) 1,000 unit FEE
--- NOTE | 2020-06-16 03:31 | PC.NURSE ---
Per verbal order by Dr Matias PICC line ok to use. Masha Rn, VO/RBV
--- NOTE | 2020-06-16 04:25 | ADMGEN ---
This patient, Suzanne Cast, was admitted to Medical Room 347-. Patient/family oriented to hospital policies and general routines including ID bracelet, bed and alarms, visiting hours, pain management, procedures, bathroom and other care routines, personal items, smoking policy, room service/diet, and visiting hours. Information on how to activate the Rapid Response Team has been discussed. Patient/Family are encouraged to report perceived risks to care and to ask questions if they do not understand what they are told or what they should do.
[2020-06-16 05:47] LABS: Glucose Point of Care 95 (65-105)
[2020-06-16 06:24] LABS: Basophils Absolute Auto 0.1 K/mm3 (0.0-0.1); Basophils Percent Auto 0.8 % (0.2-1.2); Eosinophils Absolute Auto 0.7 K/mm3 (0-0.3); Eosinophils Percent Auto 6.5 % (0-4.4); Hematocrit 32.2 % (37.0-47.0); Hemoglobin 9.5 g/dL (12.0-15.0); Immature Granulocyte Absolute 0.05 K/mm3 (0.00-0.031); Immature Granulocyte Percent A 0.4 % (0-0.5); Lymphocytes Absolute Auto 5.01 K/mm3 (0.9-3.2); Lymphocytes Percent Auto 43.7 % (18.3-44.2); Mean Corpuscular HGB Conc 29.5 g/dl (32-36); Mean Corpuscular Hemoglobin 27.8 pg (26-34); Mean Corpuscular Volume 94.2 fl (80-100); Mean Platelet Volume 10.9 fl (7.4-10.4); Monocytes Absolute Auto 1.1 K/mm3 (0.1-0.6); Monocytes Percent Auto 9.7 % (2.6-8.5); Neutrophils Absolute Auto 4.5 K/mm3 (1.3-6.7); Neutrophils Percent Auto 38.9 % (45.5-73.1); Platelet Count Result 239 k/mm3 (150-375); Red Blood Count 3.42 M/mm3 (4.2-5.4); Red Cell Distribution Width 17.1 % (11.5-14.5); White Blood Count 11.5 K/mm3 (4.5-10.0)
[2020-06-16 06:31] LABS: Anion Gap 10 mmol/L (8-16); Blood Urea Nitrogen 57 mg/dL (7-17); Calcium 9.8 mg/dL (8.4-10.2); Carbon Dioxide 34 mmol/L (22-30); Chloride 97 mmol/L (98-107); Estimated CRCL calculation 10 ml/min; Estimated Glomerular Filt Rate 12; Glucose 101 mg/dL (65-105); Potassium 3.6 mmol/L (3.4-5.0); Sodium 141 mmol/L (137-145)
--- NOTE | 2020-06-16 08:31 | WPDNEURCNPN ---
Assessment and Plan Assessment and plan (1) Seizure: Code(s): R56.9 - Unspecified convulsions Status: Acute Additional Plan question about seizures patient has already been started on Keppra considering the renal status we can clarify with the nephrologists otherwise he can change the medication to Depakote Consult date: 06/16/20 Time Seen: 08:15 HPI: Suzanne Cast is a 74 year old female has been admitted to the hospital with the possibility of the seizure in addition to ongoing history of 1. End-stage renal disease 2. Type 2 diabetes mellitus insulin-dependent 3. History of respiratory failure with COVID infection in December of 2019 number threes sacral decubitus which patient on antibiotics on the day of admission patient was reportedly poorly responsive along with shakiness for 10 to 20 minutes subsequently became awake alert patient does have ongoing history of AV fistula COVID-19 in the past cerebrovascular accident in 2007 diabetes mellitus GERD with G-tube in Review of Systems Review of Systems: All systems reviewed & are unremarkable except as noted in HPI and below PMFSH Past Medical History Medical History AV fistula COVID-23 Dec 2019 requiring intubation and transfer to tertiary care for CRRT CVA (cerebral vascular accident) 2007 Diastolic dysfunction echocardiogram December 2019: EF 65-70%, moderately increased left ventricular wall thickness, grade 1 diastolic dysfunction, global longitudinal strain abnormal had 15.9, DM2 (diabetes mellitus, type 2) On long-acting insulin End-stage renal disease on hemodialysis Gastrointestinal tube in situ GERD (gastroesophageal reflux disease) Glaucoma Hyperlipidemia Hypertension Surgical History Surgical History History of bilateral cataract extraction S/P dialysis catheter insertion AV fistula right upper arm Status post insertion of percutaneous endoscopic gastrostomy (PEG) tube Status post tracheostomy with subsequent removal Family History Family History Mother Diabetes mellitus Hypertension Sibling Uterine cancer Social History Social History Social History: She has 3 children. She lived at home alone until her diagnosis of COVID pneumonia in December 2019. Code status: Full code Durable power of estate attorney for healthcare: Suze Cast (daughter) Smoking status: Never smoker Alcohol intake: never Substance use: never Substance use type: does not use Living arrangements: with family Occupation/Education: retired Gender identity (if verbalized by the patient): Female Spiritual care concerns: No Agree to blood products: Yes Meds Home Medications and Allergies Home Medications Medication Instructions Recorded Confirmed Type B complex-vitamin C-folic acid 1 tablet FEEDING TUBE DAILY 06/03/20 06/16/20 History Lantus U-100 Insulin 18 unit SUBCUT HS 06/03/20 06/16/20 History albuterol sulfate [Ventolin HFA] 2 puff INHALATION Q6H PRN 06/03/20 06/16/20 History atorvastatin 40 mg FEEDING TUBE DAILY 06/03/20 06/16/20 History cholecalciferol (vitamin D3) 1,000 unit FEEDING TUBE DAILY 06/03/20 06/16/20 History clopidogrel 75 mg FEEDING TUBE DAILY 06/03/20 06/16/20 History diltiazem HCl [Cardizem] 30 mg FEEDING TUBE HS 06/03/20 06/16/20 History midodrine 5 mg PO 3XW 06/03/20 06/16/20 History piperacillin-tazobactam See Rx Instructions .ROUTE .COMPLEX 06/16/20 06/16/20 History Allergies Allergy/AdvReac Type Severity Reaction Status Date / Time No Known Allergies Allergy Mild Verified 06/15/20 23:05 Vital Signs Vital Signs - 24 hr 06/15/20 18:28 06/15/20 23:03 06/16/20 00:55 Temperature 36.3 C L Pulse Rate 88 88 86 Respiratory Rate 18 18 18 Blood Pressure 144/58 H 169/47 H 147/57 H Pulse Oximetry 100 100 97 1
--- NOTE | 2020-06-16 09:10 | WPDNEUROLOGY ---
Neurology EEG Report General Information Date of Study: 06/16/20 TEST eeg DIAGNOSIS New onset seizure CONDITION OF RECORDING awake drowsy and sleep EEG NUMBER [id number] CLINICAL HISTORY patient slept throughout set up an tracing no history was available EEG DESCRIPTION medium to high voltage 5 to 7 hertz per 2nd theta is seen intermittently mixed with medium voltage 3 to 4 hertz per 2nd delta bilateral symmetrical sleep spindles are seen throughout the tracing during sleep hyperventilation not done photic stimulation not done. Non paroxysmal. Nonfocal. Nonlateralizing. IMPRESSION Abnormal record due to the presence of bihemispheric theta and delta activity. These abnormalities could be suggestive of underlying organic a metabolic encephalopathy or postictal state. There is no evidence of paroxysmal activity throughout the tracing. Clinical correlation recommended.
[2020-06-16] MEDS: COLLAGENASE OINT 30 GM TUBE 1 APPLIC TOPICAL (09:38)
[2020-06-16] MEDS: CLOPIDOGREL BISULFATE 75 MG TABLET FEED TUBE (09:47)
[2020-06-16] MEDS: CHOLECALCIFEROL 1,000 UNITS TABLET 1000 UNITS FEED TUBE (09:47)
[2020-06-16] MEDS: SEVELAMER CARBONATE 800 MG TABLET FEED TUBE (09:47)
[2020-06-16] MEDS: traMADol HCL (*CRX) 50 MG TABLET PO (09:47)
[2020-06-16] MEDS: levETIRAcetam Tablet 250 MG, levETIRAcetam Tablet 500 MG 750 MG PO (09:48)
[2020-06-16] MEDS: ATORVASTATIN 40 MG TABLET FEED TUBE (10:08)
[2020-06-16 11:43] LABS: Glucose Point of Care 103 (65-105)
--- NOTE | 2020-06-16 13:37 | PM.IMPN ---
Progress Note: A&P Assessment and Plan (1) Unresponsive episode: Code(s): R41.89 - Other symptoms and signs involving cognitive functions and awareness Status: Acute Assessment and Plan: She had an episode of decreased responsiveness with shaking ongoing for [address] showed chronic lacunar infarcts of the thalami with no acute findings. EEG showed abnormal theta and delta activity, suggestive of metabolic encephalopathy or post-ictal state. She is at baseline mental status at time of my eval. Neurology has been consulted and recommendations are appreciated Monitor on telemetry She was started on Keppra in the ED. Continue at this time. Consider transition to depakoke, appreciate nephrology input regarding this. Seizure precautions MRI ordered but unable to be completed as patient has history of stent noncompatible with MRI machine (2) Sacral wound: Qualifiers: Encounter type: initial encounter Qualified Code(s): S31.000A - Unspecified open wound of lower back and pelvis without penetration into retroperitoneum, initial encounter Code(s): S31.000A - Unspecified open wound of lower back and pelvis without penetration into retroperitoneum, initial encounter Status: Chronic Assessment and Plan: Occurred following prolonged hospitalization due to COVID-19. Patient is followed by translational specialist Dr. Molina. She had a wound vac placed. She was seen by Dr. Hendricks at prior hospitalization 06/04/20 for evaluation. she gets outpatient IV Zosyn infusions Q 12 Appreciate Wound Care consult Continue IV Zosyn, renally dosed per pharmacy. Continue local wound care (3) Leukocytosis: Qualifiers: Leukocytosis type: unspecified Qualified Code(s): D72.829 - Elevated white blood cell count, unspecified Code(s): D72.829 - Elevated white blood cell count, unspecified Status: Chronic Assessment and Plan: Likely secondary to ongoing healing sacral wound. May have UTI. Possibly secondary to chest lymphadenopathy noted below. Improved from prior hospitalization. Monitor CBC with diff continue antibiotics for sacral wound Await urine culture (4) Anemia in chronic illness: Code(s): D63.8 - Anemia in other chronic diseases classified elsewhere Status: Chronic Assessment and Plan: Secondary to ESRD. No signs of acute blood loss. H&H actually appear improved from baseline. Monitor H/H, transfuse prn. She receives epogen with hemodialysis (5) DM2 (diabetes mellitus, type 2): Qualifiers: Chronic kidney disease stage: on chronic dialysis Diabetes mellitus complication detail: with chronic kidney disease Diabetes mellitus complication status: with kidney complications Diabetes mellitus group home insulin use: with group home use Qualified Code(s): E11.22 - Type 2 diabetes mellitus with diabetic chronic kidney disease; N18.6 - End stage renal disease; Z79.4 - intermediate (current) use of insulin; Z99.2 - Dependence on renal dialysis Code(s): E11.9 - Type 2 diabetes mellitus without complications Status: Chronic Assessment and Plan: Last A1c December 2019 was 6.8. Blood sugars have been well controlled. Last reading 103. Accuchecks, SSI Coverage, Hypoglycemia protocol. hold Lantus at this time. Blood sugars are within range and she is not eating much. Check updated a1c (6) End stage renal disease: Code(s): N18.6 - End stage renal disease Status: Chronic Assessment and Plan: She is on hemodialysis nephrology has been consulted for dialysis. she will undergo dialysis this evening. Renally dose medications. Administer midodrine prior to dialysis (7) Hypertension: Qualifiers: Hypertension type: essential hypertension Qualified Code(s): I10 - Essential (primary) hypertension Code(s): I10 - Essential (primary) hype
[2020-06-16 16:36] LABS: Glucose Point of Care 166 (65-105)
--- NOTE | 2020-06-16 17:06 | PM.CNNEP ---
Assessment and Plan Assessment and plan (1) End stage renal disease: Code(s): N18.6 - End stage renal disease Status: Chronic Assessment and Plan: HD today and continue M/W/F dialysis schedule follow electrolytes, volume status, and clearance (2) Seizure: Code(s): R56.9 - Unspecified convulsions Status: Acute Assessment and Plan: Neurology consulted and following follow-up on MRI of brain and EEG results (3) Hypertension: Qualifiers: Hypertension type: essential hypertension Qualified Code(s): I10 - Essential (primary) hypertension Code(s): I10 - Essential (primary) hypertension Status: Chronic Assessment and Plan: reasonable control at this time follow trend of hemodynamics (4) Anemia: Code(s): D64.9 - Anemia, unspecified Status: Chronic Assessment and Plan: related to ESRD Epogen with HD follow trend of H/H (5) Sacral wound: Qualifiers: Encounter type: initial encounter Qualified Code(s): S31.000A - Unspecified open wound of lower back and pelvis without penetration into retroperitoneum, initial encounter Code(s): S31.000A - Unspecified open wound of lower back and pelvis without penetration into retroperitoneum, initial encounter Status: Chronic Assessment and Plan: was on IV antibiotics as an outpatient - to be continued while hospitalized wound care consulted (6) DM2 (diabetes mellitus, type 2): Qualifiers: Diabetes mellitus nursing home insulin use: with nursing home use Diabetes mellitus complication status: with kidney complications Diabetes mellitus complication detail: with chronic kidney disease Chronic kidney disease stage: on chronic dialysis Qualified Code(s): E11.22 - Type 2 diabetes mellitus with diabetic chronic kidney disease; N18.6 - End stage renal disease; Z79.4 - terminal worker (current) use of insulin; Z99.2 - Dependence on renal dialysis Code(s): E11.9 - Type 2 diabetes mellitus without complications Status: Chronic Assessment and Plan: follow accuchecks on SSI and Lantus Will continue to follow. History of Present Illness Reason for Consult Consult date: 06/16/20 Reason for consult: end stage renal disease Chief Complaint Chief complaint: possible seizure History of Present Illness Narrative: The patient is a 74-year-old female with a past medical history as outlined below who presented to [facility] Emergency room for further evaluation of altered mental status and possible seizure. From review of the electronic medical record, the patient's daughter reports that just feet finished cleaning her up when she suddenly became poorly responsive and exhibited significant shakiness/tremor of her hands. This episode of poor responsiveness and shakiness apparently lasted about 10 20 minutes in total duration. Following this period of time, the patient became responsive again and was back to her normal baseline neurological status. There is no reported confusion or memory loss. No reported focal neurological deficits, loss of urine, tongue biting, or bowel incontinence. Because of this event, she was sent to the ER for further evaluation. Workup and evaluation emergency room demonstrated the patient to be hemodynamically stable with no apparent issues with regard to neurological deficits or confusion. Routine blood test demonstrated labs consistent with her known history of end-stage renal disease and a CT scan of her brain was otherwise unremarkable. Because of the history as noted above, the emergency room contacted Neurology who recommended an EEG as well as an MRI of the brain with further evaluation to follow. Further questioning to the patient reported no issues or complaints with regard to headaches, chest pain, shortness of breath, abdominal pain, nausea, vomiting, diarrhea, or rectal bleeding. Apparently, from
[2020-06-16] MEDS: MIDODRINE HCL 2.5 MG TABLET 5 MG PO (20:52)
--- NOTE | 2020-06-16 21:03 | PC.NURSE ---
Patient to dialysis via bed with MELL Jordan and MELL Espinal. Midodrine given per PRN orders in OCT before patient left the floor.
[2020-06-16] MEDS: EPOETIN ALFA-EPBX 10,000 UNITS/ML VIAL 10000 UNITS IV PUSH (23:56)
[2020-06-17] VITALS (11 sets, daily range): BP systolic 137–182; BP diastolic 43–68; PULSE 79–90; RESP 16–20; TEMP 36.2–36.9; O2SAT 100; BMI 25.8
--- NOTE | 2020-06-17 00:57 | PC.NURSE ---
Patient returned from dialysis via bed. Dialysis nurse removed 3L during session. Patient is oriented to room and resting comfortably.
[2020-06-17] MEDS: levETIRAcetam Tablet 250 MG, levETIRAcetam Tablet 500 MG 750 MG PO ×3 (01:01→21:22)
[2020-06-17] MEDS: dilTIAZem HCL 30 MG TABLET FEED TUBE ×2 (01:01→21:22)
[2020-06-17] MEDS: INSULIN GLARGINE (*BKC) 100 UNITS/ML 18 UNITS SUB-Q (01:02)
[2020-06-17 01:29] LABS: Glucose Point of Care 126 (65-105)
[2020-06-17 04:50] LABS: Hemoglobin A1C 4.8 % (<5.7)
[2020-06-17 04:52] LABS: Basophils Absolute Auto 0.1 K/mm3 (0.0-0.1); Basophils Percent Auto 0.4 % (0.2-1.2); Eosinophils Absolute Auto 0.6 K/mm3 (0-0.3); Eosinophils Percent Auto 4.6 % (0-4.4); Hematocrit 31.9 % (37.0-47.0); Hemoglobin 9.3 g/dL (12.0-15.0); Immature Granulocyte Absolute 0.11 K/mm3 (0.00-0.031); Immature Granulocyte Percent A 0.8 % (0-0.5); Lymphocytes Absolute Auto 3.68 K/mm3 (0.9-3.2); Mean Corpuscular HGB Conc 29.2 g/dl (32-36); Mean Corpuscular Hemoglobin 28.2 pg (26-34); Mean Corpuscular Volume 96.7 fl (80-100); Monocytes Absolute Auto 1.5 K/mm3 (0.1-0.6); Monocytes Percent Auto 10.6 % (2.6-8.5); Neutrophils Absolute Auto 7.7 K/mm3 (1.3-6.7); Neutrophils Percent Auto 56.6 % (45.5-73.1); Platelet Count Result 232 k/mm3 (150-375); White Blood Count 13.6 K/mm3 (4.5-10.0)
[2020-06-17 05:00] LABS: Anisocytosis 1+ (NORMAL); Atypical Lymphocytes Present; Platelet Estimate Adequate (Adequate)
[2020-06-17 05:01] LABS: Hypochromasia 1+ (NORMAL)
[2020-06-17 05:15] LABS: Anion Gap 7 mmol/L (8-16); Blood Urea Nitrogen 27 mg/dL (7-17); Calcium 9.6 mg/dL (8.4-10.2); Carbon Dioxide 33 mmol/L (22-30); Chloride 102 mmol/L (98-107); Estimated CRCL calculation 16 ml/min; Estimated Glomerular Filt Rate 22; Glucose 95 mg/dL (65-105); Magnesium 2.2 mg/dL (1.6-2.3); Potassium 4.4 mmol/L (3.4-5.0); Sodium 142 mmol/L (137-145)
[2020-06-17 07:50] LABS: Glucose Point of Care 46 (65-105)
[2020-06-17] MEDS: DEXTROSE 50% 25 GM/50 ML SYRINGE IV PUSH ×2 (07:51→16:25)
[2020-06-17 08:13] LABS: Glucose Point of Care 92 (65-105)
[2020-06-17] MEDS: ATORVASTATIN 40 MG TABLET FEED TUBE (09:42)
[2020-06-17] MEDS: SEVELAMER CARBONATE 800 MG TABLET FEED TUBE (09:42)
[2020-06-17] MEDS: CHOLECALCIFEROL 1,000 UNITS TABLET 1000 UNITS FEED TUBE (09:44)
[2020-06-17] MEDS: CLOPIDOGREL BISULFATE 75 MG TABLET FEED TUBE (09:44)
[2020-06-17] MEDS: COLLAGENASE OINT 30 GM TUBE 1 APPLIC TOPICAL (09:44)
[2020-06-17 11:59] LABS: Glucose Point of Care 75 (65-105)
--- NOTE | 2020-06-17 13:38 | PM.IMPN ---
Progress Note: A&P Assessment and Plan (1) Unresponsive episode: Code(s): R41.89 - Other symptoms and signs involving cognitive functions and awareness Status: Acute Assessment and Plan: She had an episode of decreased responsiveness with shaking ongoing for [address] showed chronic lacunar infarcts of the thalami with no acute findings. EEG showed abnormal theta and delta activity, suggestive of metabolic encephalopathy or post-ictal state. She is at baseline mental status at time of my eval. Neurology has been consulted and recommendations are appreciated Monitor on telemetry She was started on Keppra in the ED. Continue at this time. Consider transition to depakoke, appreciate nephrology input regarding this. Seizure precautions MRI ordered but unable to be completed as patient has history of stent noncompatible with MRI machine (2) Sacral wound: Qualifiers: Encounter type: initial encounter Qualified Code(s): S31.000A - Unspecified open wound of lower back and pelvis without penetration into retroperitoneum, initial encounter Code(s): S31.000A - Unspecified open wound of lower back and pelvis without penetration into retroperitoneum, initial encounter Status: Chronic Assessment and Plan: Occurred following prolonged hospitalization due to COVID-19. Patient is followed by cash management specialist Dr. Molina. She had a wound vac placed. She was seen by Dr. Hendricks at prior hospitalization 06/04/20 for evaluation. she gets outpatient IV Zosyn infusions Q 12 Appreciate Wound Care consult Continue IV Zosyn, renally dosed per pharmacy. Continue local wound care (3) Leukocytosis: Qualifiers: Leukocytosis type: unspecified Qualified Code(s): D72.829 - Elevated white blood cell count, unspecified Code(s): D72.829 - Elevated white blood cell count, unspecified Status: Chronic Assessment and Plan: Likely secondary to ongoing healing sacral wound. Possibly secondary to chest lymphadenopathy noted below. Slight increase in WBC today. Monitor CBC with diff continue antibiotics for sacral wound (4) Anemia in chronic illness: Code(s): D63.8 - Anemia in other chronic diseases classified elsewhere Status: Chronic Assessment and Plan: Secondary to ESRD. No signs of acute blood loss. H&H actually appear improved from baseline. Monitor H/H, transfuse prn. She receives epogen with hemodialysis (5) DM2 (diabetes mellitus, type 2): Qualifiers: Chronic kidney disease stage: on chronic dialysis Diabetes mellitus complication detail: with chronic kidney disease Diabetes mellitus complication status: with kidney complications Diabetes mellitus termite exterminator helper insulin use: with fpc use Qualified Code(s): E11.22 - Type 2 diabetes mellitus with diabetic chronic kidney disease; N18.6 - End stage renal disease; Z79.4 - senior living (current) use of insulin; Z99.2 - Dependence on renal dialysis Code(s): E11.9 - Type 2 diabetes mellitus without complications Status: Chronic Assessment and Plan: Last A1c December 2019 was 6.8, and declined to 4.8 (06/17/20) She has had 2 episodes of hypoglycemia today, lowest at 46. Accuchecks, SSI Coverage, Hypoglycemia protocol. Hold Lantus at this time. Blood sugars are within range and she is not eating much. This can be discontinued at discharge as it does not appear she requires insulin therapy based on A1c and risk of hypoglycemia. Patient is not eating much today and therefore will start gentle D5 at 50 ml/hr (6) End stage renal disease: Code(s): N18.6 - End stage renal disease Status: Chronic Assessment and Plan: She is on hemodialysis Nephrology has been consulted for dialysis. She had HD on 06/16/20. Renally dose medications. Administer midodrine prior to dialysis (7) Hypertension: Qualifie
[2020-06-17] MEDS: ALBUTEROL SULFATE (*SP) AEROSOL 1 PUFF 2 PUFF INHALATION (13:58)
[2020-06-17 16:09] LABS: Glucose Point of Care 55 (65-105)
[2020-06-17] MEDS: DEXTROSE 5% 1,000 ML 1,000 ML 50 ML IV CONT (17:36)
[2020-06-17 17:48] LABS: Glucose Point of Care 95 (65-105)
--- NOTE | 2020-06-17 17:52 | PM.PNNEP ---
Progress Note: A&P Assessment and Plan (1) End stage renal disease: Code(s): N18.6 - End stage renal disease Status: Chronic Assessment and Plan: HD tomorrow and continue M/W/ dialysis schedule follow electrolytes, volume status, and clearance (2) Seizure: Code(s): R56.9 - Unspecified convulsions Status: Acute Assessment and Plan: Neurology recommendations noted EEG results noted unable to do MRI due to presence of incompatible stents on seizure medication at this time (3) Hypertension: Qualifiers: Hypertension type: essential hypertension Qualified Code(s): I10 - Essential (primary) hypertension Code(s): I10 - Essential (primary) hypertension Status: Chronic Assessment and Plan: elevated at this time follow trend of hemodynamics further medication adjustments as needed (4) Anemia: Code(s): D64.9 - Anemia, unspecified Status: Chronic Assessment and Plan: related to ESRD Epogen with HD follow-up on iron studies follow trend of H/H (5) Sacral wound: Qualifiers: Encounter type: initial encounter Qualified Code(s): S31.000A - Unspecified open wound of lower back and pelvis without penetration into retroperitoneum, initial encounter Code(s): S31.000A - Unspecified open wound of lower back and pelvis without penetration into retroperitoneum, initial encounter Status: Chronic Assessment and Plan: was on IV antibiotics as an outpatient - to be continued while hospitalized wound care following (6) DM2 (diabetes mellitus, type 2): Qualifiers: Chronic kidney disease stage: on chronic dialysis Diabetes mellitus complication detail: with chronic kidney disease Diabetes mellitus complication status: with kidney complications Diabetes mellitus fdc insulin use: with link trainer mechanic use Qualified Code(s): E11.22 - Type 2 diabetes mellitus with diabetic chronic kidney disease; N18.6 - End stage renal disease; Z79.4 - correction (current) use of insulin; Z99.2 - Dependence on renal dialysis Code(s): E11.9 - Type 2 diabetes mellitus without complications Status: Chronic Assessment and Plan: follow accuchecks on SSI and Lantus Will continue to follow. Subjective Date/time seen: 06/17/20 17:52 Tolerated dialysis yesterday evening without any issues or problems; no distress voiced at the time of my viist; no further episodes of unresponsiveness/ shakiness since admission; eating and drinking okay; no events overnight or earlier this AM to report. Exam Narrative: Exam Narrative: General: WD/WN AA female in NAD Heart: normal S1 and S2; no rub Lungs: clear to auscultation Abdomen: soft, nontender, nondistended, positive bowel sounds Extremities: no cyanosis or clubbing; no edema Skin: warm and dry Objective Data Vital Signs Vital Signs: Vital Signs Temp Pulse Resp BP Pulse Ox 06/17/20 16:00 81 06/17/20 14:00 36.3 C L 84 16 171/53 H 100 06/17/20 12:00 79 06/17/20 08:00 85 06/17/20 04:31 36.6 C 86 20 137/43 L 100 06/17/20 04:00 86 06/17/20 00:30 36.9 C 90 20 182/68 H 06/17/20 00:23 89 172/60 H 06/17/20 00:00 86 152/63 H 06/16/20 23:45 88 154/61 H 06/16/20 23:30 88 162/61 H 06/16/20 23:15 86 160/68 H 06/16/20 23:00 87 165/66 H 06/16/20 22:45 87 168/66 H 06/16/20 22:30 88 164/70 H 06/16/20 22:15 87 177/72 H 06/16/20 22:00 87 178/73 H 06/16/20 21:45 84 179/73 H 06/16/20 21:30 83 203/83 H 06/16/20 21:20 88 204/79 H 06/16/20 20:48 36.2 C L 85 17 192/55 H 100 06/16/20 20:00 84 Intake/Output Intake/Output: Intake & Output 06/14/20 06/15/20 06/16/20 06/17/20 23:59 23:59 23:59 23:59 Intake Total 100 750 450 Output Total 3000 Balance 100 750 -2550 Meds/Results Medications: Active Medications
[2020-06-17 21:48] LABS: Glucose Point of Care 123 (65-105)
[2020-06-18] VITALS (18 sets, daily range): BP systolic 116–183; BP diastolic 28–82; PULSE 81–98; RESP 16–18; TEMP 36–36.9; O2SAT 99
[2020-06-18 07:41] LABS: Glucose Point of Care 132 (65-105)
--- NOTE | 2020-06-18 10:39 | PHAR ---
Epogen 10,000 was given to patient by IV. José Luis Ruiz RN
--- NOTE | 2020-06-18 10:56 | PM.DS ---
DS: Admitting Diagnosis Admitting Diagnosis Admitting Diagnosis: possible seizure DS: Discharge Diagnosis Discharge Diagnosis (1) Unresponsive episode: Code(s): R41.89 - Other symptoms and signs involving cognitive functions and awareness Status: Acute Assessment and Plan: She had an episode of decreased responsiveness with shaking ongoing for [address] showed chronic lacunar infarcts of the thalami with no acute findings. EEG showed abnormal theta and delta activity, suggestive of metabolic encephalopathy or post-ictal state. She was at baseline mental status for my evaluations. She was seen in consultation by neurology and was initiated on Keppra 250 BID for possible seizure disorder. Discussed with nephrology in light of ESRD and HD who agreed with dosing. MRI was ordered but unable to be completed as patient has history of stent noncompatible with MRI machine. She will continue PO Keppra. (2) Sacral wound: Qualifiers: Encounter type: initial encounter Qualified Code(s): S31.000A - Unspecified open wound of lower back and pelvis without penetration into retroperitoneum, initial encounter Code(s): S31.000A - Unspecified open wound of lower back and pelvis without penetration into retroperitoneum, initial encounter Status: Chronic Assessment and Plan: Occurred following prolonged hospitalization due to COVID-19. Patient is followed by document management specialist Dr. Molina. She had a wound vac placed. She gets outpatient IV Zosyn infusions q12h with home health. Zosyn was continued throughout hospitalization. She was evaluated by wound care team and local wound care was continued. She has outpatient follow up in wound clinic with Dr. Molina on 06/22/20. (3) Leukocytosis: Qualifiers: Leukocytosis type: unspecified Qualified Code(s): D72.829 - Elevated white blood cell count, unspecified Code(s): D72.829 - Elevated white blood cell count, unspecified Status: Chronic Assessment and Plan: Likely secondary to ongoing healing sacral wound. Possibly secondary to chest lymphadenopathy noted below. Remained consistent with prior readings. Continue Zosyn. Follow up labs in 1 month with PCP. (4) Anemia in chronic illness: Code(s): D63.8 - Anemia in other chronic diseases classified elsewhere Status: Chronic Assessment and Plan: Secondary to ESRD. No signs of acute blood loss. H&H monitored closely and remained consistent with, even slightly improved, from baseline. She receives epogen with hemodialysis (5) DM2 (diabetes mellitus, type 2): Qualifiers: Diabetes mellitus terminal block assembler insulin use: with terminal block assembler use Diabetes mellitus complication status: with kidney complications Diabetes mellitus complication detail: with chronic kidney disease Chronic kidney disease stage: on chronic dialysis Qualified Code(s): E11.22 - Type 2 diabetes mellitus with diabetic chronic kidney disease; N18.6 - End stage renal disease; Z79.4 - residential (current) use of insulin; Z99.2 - Dependence on renal dialysis Code(s): E11.9 - Type 2 diabetes mellitus without complications Status: Chronic Assessment and Plan: Last A1c December 2019 was 6.8, and declined to 4.8 (06/17/20). She had 2 episodes of hypoglycemia during stay, lowest at 46, which quickly resolved with juice intake. She was not eating very much and her Lantus was held. Based on her A1c and blood sugars, I recommended discontinuation of Lantus to prevent hypoglycemia. Encouraged monitoring of blood sugars TID and recording for review by PCP. Discussed with patients daughter s/sx of hypoglycemia and how to manage. (6) End stage renal disease: Code(s): N18.6 - End stage renal disease Status: Chronic Assessment and Plan: She is on hemodialysis. Nephrology was consulted for dialysis. She had HD on 06/16/20 and 06/18/20. Midodrine administered prior to d
--- NOTE | 2020-06-18 11:25 | PM.PNNEP ---
Progress Note: A&P Assessment and Plan (1) End stage renal disease: Code(s): N18.6 - End stage renal disease Status: Chronic Assessment and Plan: HD today and continue M/W/F dialysis schedule follow electrolytes, volume status, and clearance (2) Seizure: Code(s): R56.9 - Unspecified convulsions Status: Acute Assessment and Plan: Neurology recommendations noted EEG results noted unable to do MRI due to presence of incompatible stents on seizure medication at this time (3) Hypertension: Qualifiers: Hypertension type: essential hypertension Qualified Code(s): I10 - Essential (primary) hypertension Code(s): I10 - Essential (primary) hypertension Status: Chronic Assessment and Plan: reasonable control follow trend of hemodynamics further medication adjustments as needed (4) Anemia: Code(s): D64.9 - Anemia, unspecified Status: Chronic Assessment and Plan: related to ESRD Epogen with HD follow-up on iron studies - HOWEVER, given sacral wound/infection, would hold IV iron products follow trend of H/H (5) Sacral wound: Qualifiers: Encounter type: initial encounter Qualified Code(s): S31.000A - Unspecified open wound of lower back and pelvis without penetration into retroperitoneum, initial encounter Code(s): S31.000A - Unspecified open wound of lower back and pelvis without penetration into retroperitoneum, initial encounter Status: Chronic Assessment and Plan: was on IV antibiotics as an outpatient - to be continued while hospitalized wound care following (6) DM2 (diabetes mellitus, type 2): Qualifiers: Chronic kidney disease stage: on chronic dialysis Diabetes mellitus complication detail: with chronic kidney disease Diabetes mellitus complication status: with kidney complications Diabetes mellitus long goods drier insulin use: with chcf use Qualified Code(s): E11.22 - Type 2 diabetes mellitus with diabetic chronic kidney disease; N18.6 - End stage renal disease; Z79.4 - termite renewal inspector (current) use of insulin; Z99.2 - Dependence on renal dialysis Code(s): E11.9 - Type 2 diabetes mellitus without complications Status: Chronic Assessment and Plan: follow accuchecks on SSI and Lantus Will continue to follow. Subjective Date/time seen: 06/18/20 11:25 Tolerating dialysis at the time of my visit (seen on HD at ~ 11:15AM) although having some on/off cramps currently; no new issues or problems to report at this time; no acute distress noted; no events overnight or earlier this AM; feels fairly well. Exam Narrative: Exam Narrative: General: WD/WN AA female in NAD Heart: normal S1 and S2; no rub Lungs: clear to auscultation Abdomen: soft, nontender, nondistended, positive bowel sounds Extremities: no cyanosis or clubbing; no edema Skin: warm and dry Objective Data Vital Signs Vital Signs: Vital Signs Temp Pulse Resp BP Pulse Ox 06/18/20 11:00 98 147/41 H 06/18/20 10:45 85 116/28 L 06/18/20 10:15 87 127/54 L 06/18/20 10:00 86 134/60 06/18/20 09:45 87 131/59 L 06/18/20 09:30 86 148/70 H 06/18/20 09:15 86 143/62 H 06/18/20 09:00 83 169/61 H 06/18/20 08:45 88 173/78 H 06/18/20 08:32 88 183/82 H 06/18/20 08:00 81 06/18/20 04:48 36.1 C L 85 16 147/51 H 99 06/18/20 04:00 86 06/18/20 00:00 83 06/17/20 20:00 83 06/17/20 19:32 36.2 C L 84 16 147/44 H 100 06/17/20 16:00 81 06/17/20 14:00 36.3 C L 84 16 171/53 H 100 06/17/20 12:00 79 Intake/Output Intake/Output: Intake & Output 06/15/20 06/16/20 06/17/20 06/18/20 23:59 23:59 23:59 23:59 Intake Total 100 750 690 290 Output Total 3000 Balance 100 750 -2310 290 Meds/Results Medications: Active Medications Generic Name Dose Route Start Last Admin Trade Name Cesia Clifton
[2020-06-18 11:40] LABS: Glucose Point of Care 100 (65-105)
[2020-06-18] MEDS: levETIRAcetam Tablet 250 MG, levETIRAcetam Tablet 500 MG 750 MG PO (11:50)
[2020-06-18] MEDS: CHOLECALCIFEROL 1,000 UNITS TABLET 1000 UNITS FEED TUBE (11:50)
[2020-06-18] MEDS: CLOPIDOGREL BISULFATE 75 MG TABLET FEED TUBE (11:50)
[2020-06-18] MEDS: ATORVASTATIN 40 MG TABLET FEED TUBE (11:50)
[2020-06-18] MEDS: COLLAGENASE OINT 30 GM TUBE 1 APPLIC TOPICAL (11:51)
[2020-06-18] MEDS: SEVELAMER CARBONATE 800 MG TABLET FEED TUBE (11:51)
--- NOTE | 2020-06-18 15:50 | PC.NURSE ---
Spoke with POA regarding discharge. Supplies sent for thickening of liquids.
== END 2020-06-18 15:20 | disposition home health service (06) ==
LOC: ANHED 21:22 → ANH3MED 06-16 01:40
PROVIDERS: Physician Assistant; Admitting Provider Family Medicine; Emergency Provider General Practice; PCP Internal Medicine Infectious Disease; Visit Provider Internal Medicine
DX: R41.89 Other symptoms and signs involving cognitive functions and awareness (principal); S31.000A Unspecified open wound of lower back and pelvis without penetration into retroperitoneum, initial encounter; D72.829 Elevated white blood cell count, unspecified; D63.8 Anemia in other chronic diseases classified elsewhere; R56.9 Unspecified convulsions; R94.01 Abnormal electroencephalogram [EEG]; R93.89 Abnormal findings on diagnostic imaging of other specified body structures; R82.90 Unspecified abnormal findings in urine; I13.2 Hypertensive heart and chronic kidney disease with heart failure and with stage 5 chronic kidney disease, or end stage renal disease; E11.22 Type 2 diabetes mellitus with diabetic chronic kidney disease; E11.649 Type 2 diabetes mellitus with hypoglycemia without coma; N18.6 End stage renal disease; I50.30 Unspecified diastolic (congestive) heart failure; Z99.2 Dependence on renal dialysis; Z79.4 Long term (current) use of insulin; E78.5 Hyperlipidemia, unspecified; K21.9 Gastro-esophageal reflux disease without esophagitis; H40.9 Unspecified glaucoma; Z86.73 Personal history of transient ischemic attack (TIA), and cerebral infarction without residual deficits; Z79.02 Long term (current) use of antithrombotics/antiplatelets
CPT/HCPCS: 36415; 70450; 71045; 80048; 80053; 81001; 83036; 83735; 84443; 85025; 87086; 92526; 92610; 93005; 94640; 95816; 96365; 96366; 96375; 96376; 99285; A9270; G0257; G0378; J1644; J1815; J1953; J2543; J7030; J7070; Q5106

== ENCOUNTER 2020-07-26 15:33 | Emergency (ER) | payer MEDICARE, MEDICAID, SELFPAY ==
--- NOTE | ~2020-07-26 | XR_ITS ---
EXAMINATION: XR chest 2V EXAM DATE: 07/26/2020 16:15 INDICATION: weakness, labored breathing, HX CVA/HTN/diabetes. TECHNIQUE: Frontal and lateral projections of the chest obtained and reviewed. Comparison is made to prior examination from 06/15/2020. FINDINGS: Right midlung zone granuloma. The lungs are otherwise clear. There are no pleural effusion s. The cardiomediastinal silhouette is within normal limits. There is no pneumothorax suspected. T he bones and soft tissues are unremarkable. There are cholecystectomy clips. IMPRESSION: No acute cardiopulmonary findings. Reviewed, dictated and finalized at location B. FILE CLERK
--- NOTE | ~2020-07-26 | CT_ITS ---
EXAMINATION: CT soft tissue neck w con DATE: 07/26/2020 17:23 INDICATION: Stridor. Dyspnea. TECHNIQUE: Computed tomography (CT) of the neck was performed with 75 mL Omnipaque-350 intravenous co ntrast. Automated exposure control and iterative reconstruction technique were employed. The dose-marilin gth product was 401.61 mGy-cm. COMPARISON: Chest CT 06/03/2020 FINDINGS: There is scarring at right lung apex. There are groundglass opacities in the lung apices wi th interval improvement. There are nodules in the thyroid measuring up to 11 mm, likely not clinicall y significant. There is mild bilateral supraclavicular, bilateral spinal accessory, and right subpect oral lymphadenopathy. For example, a left supraclavicular node measures 24 x 10 mm. There is a patent stent in right cephalic vein. The pharyngeal mucosal space is unremarkable. The epiglottis is normal . There is mild cervical spondylosis including bulky anterior endplate osteophytes. IMPRESSION: 1. Mild neck and chest lymphadenopathy, which may be reactive lymphadenopathy or malignancy such as l ymphoma. 2. Groundglass opacities in the lung apices with interval improvement, consistent with atelectasis/sc arring versus pneumonia. Reviewed, dictated and finalized at location A. HALMIC PATHOLOGIST IMPRESSION: 1. Mild neck and chest lymphadenopathy, which may be reactive lymphadenopathy o r malignancy such as lymphoma. 2. Groundglass opacities in the lung apices with interval improvement, consiste nt with atelectasis/scarring versus pneumonia.
[2020-07-26 15:30] VITALS: BP 175/61; PULSE 83; RESP 14; TEMP 36.6; O2SAT 96
[2020-07-26 15:36] VITALS: PULSE 83
--- NOTE | 2020-07-26 15:37 | ECG_ITS ---
Measurements Intervals [place] Rate: 83 P: 66 ID: [id number] QRS: 10 QRSD: 80 T: 111 QT: 377 QTc: 444 Interpretive Statements SINUS RHYTHM PEAKED T WAVES- CONSIDER HYPERKALEMIA OR ISCHEMIA ST ELEVATION IN ANTEROLAT/INF LEADS- PROBABLY EARLY REPOLARIZATION BASELINE WANDER- I, II, AVR, AVL, AVF ABNORMAL ECG Electronically Signed On 07-26-2020 18:42:00 CONTINUOUS MINING MACHINE OPERATOR by Bryan Monson D.O.
[2020-07-26 15:51] LABS: Basophils Absolute Auto 0.1 K/mm3 (0.0-0.1); Basophils Percent Auto 0.4 % (0.2-1.2); Eosinophils Absolute Auto 0.3 K/mm3 (0-0.3); Eosinophils Percent Auto 2.4 % (0-4.4); Hematocrit 41.9 % (37.0-47.0); Hemoglobin 12.7 g/dL (12.0-15.0); Immature Granulocyte Absolute 0.13 K/mm3 (0.00-0.031); Immature Granulocyte Percent A 0.9 % (0-0.5); Lymphocytes Absolute Auto 3.51 K/mm3 (0.9-3.2); Lymphocytes Percent Auto 24.8 % (18.3-44.2); Mean Corpuscular HGB Conc 30.3 g/dl (32-36); Mean Corpuscular Hemoglobin 27.6 pg (26-34); Mean Corpuscular Volume 91.1 fl (80-100); Mean Platelet Volume 11.3 fl (7.4-10.4); Monocytes Absolute Auto 2.8 K/mm3 (0.1-0.6); Monocytes Percent Auto 19.5 % (2.6-8.5); Neutrophils Absolute Auto 7.4 K/mm3 (1.3-6.7); Platelet Count Result 272 k/mm3 (150-375); Red Cell Distribution Width 16.5 % (11.5-14.5); White Blood Count 14.2 K/mm3 (4.5-10.0)
--- NOTE | 2020-07-26 16:10 | ED.WEAKNESS ---
HPI - Weakness General Chief complaint: Weakness Stated complaint: not feeling well Time Seen by Provider: 07/26/20 16:10 Source: patient and family Mode of arrival: EMS Limitations: no limitations History of Present Illness HPI Narrative: Patient is a 74-year-old female with a history of end-stage renal disease, dialysis dependent, who presents following dialysis for evaluation of general malaise. Patient at time of assessment reports that she feels fine without any complaints. Patient's daughter felt like she was having difficulty breathing and wanted her to be evaluated. Patient denies any chest pain, shortness of breath. She denies any cough. Patient's daughter states that she feels her breathing is mildly labored although she is not having any difficulty with speech. Patient denies any fever, pleuritic pain. No problem tolerating dialysis today. She denies any numbness or weakness in her extremities. No recent illnesses although patient's daughter reports she did have Covid in the past. Related Data Home Medications Medication Instructions Recorded Confirmed B complex-vitamin C-folic acid 1 tablet FEEDING TUBE DAILY 06/03/20 06/16/20 albuterol sulfate [Ventolin HFA] 2 puff INHALATION Q6H PRN 06/03/20 06/16/20 atorvastatin 40 mg FEEDING TUBE DAILY 06/03/20 06/16/20 cholecalciferol (vitamin D3) 1,000 unit FEEDING TUBE DAILY 06/03/20 06/16/20 clopidogrel 75 mg FEEDING TUBE DAILY 06/03/20 06/16/20 diltiazem HCl [Cardizem] 30 mg FEEDING TUBE HS 06/03/20 06/16/20 midodrine 5 mg PO 3XW 06/03/20 06/16/20 piperacillin-tazobactam See Rx Instructions .ROUTE .COMPLEX 06/16/20 06/16/20 Allergies Allergy/AdvReac Type Severity Reaction Status Date / Time No Known Allergies Allergy Mild Verified 07/26/20 15:37 Review of Systems Review of Systems: Narrative: CONSTITUTIONAL: Denies fever, chills, or sweats. EYES: Denies visual changes, redness, or discharge. ENT: Denies rhinorrhea, congestion, sore throat, or otalgia. CARDIOVASCULAR: Denies chest pain, palpitations, or edema. RESPIRATORY: Denies cough or dyspnea. GASTROINTESTINAL: Denies abdominal pain, nausea, vomiting, or diarrhea. GENITOURINARY: Denies dysuria or hematuria. SKIN: Denies rash or itching. MUSCULOSKELETAL: Denies back pain, joint pain, or myalgia. NEUROLOGIC: Denies headache, numbness, or weakness. [facility] Past Medical History Medical History AV fistula COVID-23 Dec 2019 requiring intubation and transfer to tertiary care for CRRT CVA (cerebral vascular accident) 2008 Diastolic dysfunction echocardiogram December 2019: EF 65-70%, moderately increased left ventricular wall thickness, grade 1 diastolic dysfunction, global longitudinal strain abnormal had 15.9, DM2 (diabetes mellitus, type 2) On long-acting insulin End-stage renal disease on hemodialysis Gastrointestinal tube in situ GERD (gastroesophageal reflux disease) Glaucoma Hyperlipidemia Hypertension Surgical History Surgical History History of bilateral cataract extraction S/P dialysis catheter insertion AV fistula right upper arm Status post insertion of percutaneous endoscopic gastrostomy (PEG) tube Status post tracheostomy with subsequent removal Family History Family History Mother Diabetes mellitus Hypertension Sibling Uterine cancer Social History Social History Social History: She has 3 children. She lived at home alone until her diagnosis of COVID pneumonia in December 2019. Code status: Full code Durable power of workers compensation defense attorney for healthcare: Suze Cast (daughter) Smoking status: Never smoker Alcohol intake: never Substance use: never Substance use type: does not use Gender identity (if verbalized by the patient): Female Spiritual care concerns: No
[2020-07-26 16:19] LABS: Alanine Aminotransferase 17 U/L (4-35); Albumin Level 3.6 g/dL (3.5-5.1); Alkaline Phosphatase 349 U/L (38-126); Aspartate Amino Transferase 73 U/L (14-36); Bilirubin,Total 0.5 mg/dL (0.2-1.3); Blood Urea Nitrogen 39 mg/dL (7-17); Calcium 10.6 mg/dL (8.4-10.2); Carbon Dioxide > 40 mmol/L (22-30); Chloride 93 mmol/L (98-107); Estimated CRCL calculation 12 ml/min; Estimated Glomerular Filt Rate 16; Glucose 108 mg/dL (65-105); Sodium 139 mmol/L (137-145)
[2020-07-26 16:46] VITALS: PULSE 81; RESP 16
[2020-07-26] MEDS: ALBUTEROL SULFATE NEB 2.5 MG/0.5 ML INH 5 MG INHALATION (16:46)
[2020-07-26] MEDS: IPRATROPIUM BR 0.02% INH SOLN 0.5 MG/2.5 ML VIAL INHALATION (16:46)
[2020-07-26 16:54] VITALS: PULSE 81; RESP 14
--- NOTE | 2020-07-26 17:06 | PC.NURSE ---
Pt to CT scan via stretcher.
[2020-07-26 17:52] VITALS: BP 151/46; PULSE 83; RESP 15; O2SAT 97
[2020-07-26 18:34] VITALS: BP 150/88; PULSE 82; RESP 18; O2SAT 100
== END 2020-07-26 18:36 | disposition home or self-care (01) ==
PROVIDERS: Emergency Medicine; Emergency Provider Emergency Medicine; PCP Internal Medicine Infectious Disease
DX: R59.1 Generalized enlarged lymph nodes (principal); R09.89 Other specified symptoms and signs involving the circulatory and respiratory systems; E11.22 Type 2 diabetes mellitus with diabetic chronic kidney disease; I12.0 Hypertensive chronic kidney disease with stage 5 chronic kidney disease or end stage renal disease; N18.6 End stage renal disease; Z99.2 Dependence on renal dialysis; Z79.4 Long term (current) use of insulin; Z86.19 Personal history of other infectious and parasitic diseases; Z86.73 Personal history of transient ischemic attack (TIA), and cerebral infarction without residual deficits; K21.9 Gastro-esophageal reflux disease without esophagitis; E78.5 Hyperlipidemia, unspecified; Z98.42 Cataract extraction status, left eye; Z98.41 Cataract extraction status, right eye; R94.31 Abnormal electrocardiogram [ECG] [EKG]
CPT/HCPCS: 36415; 70491; 71046; 80053; 85025; 93005; 94640; 96374; 99284; J1100; Q9967